=== PATIENT | female | born 2000 | race Caucasian/White ===

== ENCOUNTER 2022-05-13 18:32 | Emergency (ER) | payer BC, MEDICAID, SELFPAY ==
[2022-05-13 18:39] VITALS: BP 107/69; PULSE 97; RESP 24; TEMP 36.8; O2SAT 100; BMI 23.2
[2022-05-13 19:08] VITALS: BP 97/66; PULSE 88; RESP 14; TEMP 36.6; O2SAT 100
[2022-05-13 19:11] LABS: Lactate* 0.9 mmol/L (0.5-1.9)
[2022-05-13 19:13] LABS: Basophils Percent Auto 0.1 % (0.0-3.0); Eosinophils Percent Auto 0.3 % (0.0-7.0); Hematocrit 41.5 % (33.0-51.0); Hemoglobin* 13.9 gm/dL (12.0-16.0); Immature Granulocytes Pct Auto 0.1 %; Lymphocytes Percent Auto 1.8 % (20-44); Mean Corpuscular HGB Conc 34 gm/dL (32-36); Mean Corpuscular Hemoglobin 30 pg (26-34); Mean Corpuscular Volume 88 fL (80-100); Monocytes Percent Auto 4.5 % (0.0-11.0); Neutrophils Percent Auto 93.2 % (42.0-72.0); Platelet Count* 288 K/uL (140-440); White Blood Count* 17.39 K/uL (4.50-11.00)
[2022-05-13 19:15] LABS: Appearance Urine Cloudy (Clear); Bilirubin Urine 1+ (Negative); Blood Urine Negative (Negative); Color Urine Yellow (Yellow); Glucose Urine Negative (Negative); Ketones Urine 4+ (Negative); Leukocyte Esterase Urine Negative (Negative); Nitrite Urine Negative (Negative); Protein Urine Negative (Negative); Specific Gravity Urine 1.025 (1.000-1.030); Urobilinogen Urine 0.2 (0.2-1.0); pH Urine 5.5 (5.0-8.5)
[2022-05-13 19:16] LABS: HCG Qualitative* Negative (Negative)
--- NOTE | 2022-05-13 19:20 | ED.GENADULT ---
HPI - General Adult General Chief complaint: Abdominal Pain Stated complaint: Abdominal Pain Time Seen by Provider: 05/13/22 18:48 Source: patient Mode of arrival: ambulatory Limitations: no limitations History of Present Illness HPI narrative: 22-year-old female coming in today complaining of pelvic pain. She states bilaterally but the right is worse than left. She states that she started having diarrhea last night and has continued into today. She describes it as watery bright yellow diarrhea. She denies any nausea but states that she vomited twice earlier today. She has been able to eat since without difficulty. She denies any fevers. She denies any recent traveling or sick contacts that she is aware of. She does have a copper IUD in. Her last menses was this last week and ended 2 days ago. She states that she is having some dysuria but no increased frequency or urgency. Related Data Home Medications Medication Instructions Recorded Confirmed adapalene 0.3 % topical gel with 1 applic topical .hs 10/28/21 03/28/22 pump clindamycin phosphate 1 % lotion 1 applic topical DAILY PRN 10/28/21 03/28/22 paraguard miscellaneous 10/28/21 escitalopram oxalate 5 mg tablet 5 mg PO QDAY 03/28/22 05/13/22 spironolactone 50 mg tablet 50 mg PO QDAY 03/28/22 05/13/22 Previous Rx's Medication Instructions Recorded dextroamphetamine-amphetamine ER 20 mg PO QAM #30 caps 03/28/22 20 mg 24hr capsule,extend release (Adderall XR) dextroamphetamine-amphetamine ER 20 mg PO QAM #30 caps 03/28/22 20 mg 24hr capsule,extend release (Adderall XR) dextroamphetamine-amphetamine ER 20 mg PO QAM #30 caps 03/28/22 20 mg 24hr capsule,extend release (Adderall XR) escitalopram oxalate 10 mg tablet 15 mg PO DAILY #135 tabs 03/28/22 lisdexamfetamine 40 mg capsule 40 mg PO QAM #30 caps 05/03/22 (Vyvanse) Allergies Allergy/AdvReac Type Severity Reaction Status Date / Time No Known Drug Allergies Allergy Verified 03/28/22 14:44 Review of Systems Status of ROS: Reports: 10 or more systems reviewed and unremarkable except as noted in History and below [facility] Medical History Acne Attention deficit hyperactivity disorder (ADHD), predominantly inattentive type Generalized anxiety disorder Recurrent major depressive disorder Surgical History History of hernia repair (05/2015) History of tonsillectomy and adenoidectomy (05/2001) Spontaneous vaginal delivery Social History Narrative: single, 1 son, [employer] student, works at [employer] non-smoker Smoking Status: Never smoker How often do you have a drink containing alcohol: 2-4 times a month AUDIT-C Alcohol total score: 2 Non-prescribed substance use: denies use Little interest or pleasure in doing things: not at all Feeling down, depressed, or hopeless: not at all Exam Narrative: Exam Narrative: Well-nourished well-developed patient, quite anxious. Alert and oriented x3. Answers questions appropriately. Patient speaks in full sentences without needing to catch her breath. HEENT: Normocephalic atraumatic. Pupils are equally round reactive to light. Extraocular muscles are intact. Conjunctivae are moist without any icterus noted. Moist mucous membranes. Cardiovascular: Heart is regular rate and rhythm S1 and S2 are present without any murmurs. Lungs: Clear to auscultation bilaterally no wheezes rhonchi or rales are appreciated. Patient takes deep breaths without any discomfort. Abdomen: Soft and nondistended normal with normal bowel sounds. She has no tenderness in the epigastric area, right or left upper quadrants. She has no periumbilical pain. No pain in McBurney's point. She has suprapubic discomfort with mild discomfort in the left and right pelvic regions. No masses are appreciated. Extremities: Bilateral lower extremities are without edema. Skin: Well perfused without any obvious rashes. Const: Vital Signs, click to edit/add: Vital Signs - 24 hr 05/13/22 18:39 05/13/22 19:08 05/13/22 19:49 Temperature 98.2 F 98 F Pulse Rate [Pulse Oximeter] 97 88 Respiratory Rate 24 14 Blood Pressure [Ri ght Upper Arm] 107/69 97/66 108/59 L Pulse Oximetry 100 100 Oxygen Delivery Me thod Room Air Room Air Course Course Hospital Course: Who proceeded with blood work. White blood cell count is elevated, remainder of lab work is unremarkable including a normal CRP and lactate. At this time we discussed options which would include further imaging will given her discomfort and elevated white count or watchful waiting for the next 1-2 days given that we can see an elevated white count with gastroenteritis and GI distress. Urine culture also pending at this time and that can certainly change our treatment also 1 results arrive. At this time patient she uses watchful waiting which I am in agreement with. We discussed returning to the ER if she develops worsening pain, fevers, intractable vomiting. Patient was agreeable and had no other questions. Vital Signs Vital signs: Initial Vital Signs Temperature 98.2 F 05/13/22 18:39 Temperature Source Temporal Artery Scan 05/13/22 18:39 Pulse Rate 97 05/13/22 18:39 Respiratory Rate 24 05/13/22 18:39 Blood Pressure 107/69 05/13/22 18:39 Blood Pressure Mean 81 05/13/22 18:39 Blood Pressure Position Supine 05/13/22 18:39 Pulse Oximetry 100 05/13/22 18:39 Oxygen Delivery Method 05/13/22 18:39 Vital Signs Temperature 98.2 F 05/13/22 18:39 Pulse Rate 97 05/13/22 18:39 Respiratory Rate 24 05/13/22 18:39 Blood Pressure 107/69 05/13/22 18:39 Pulse Oximetry 100 05/13/22 18:39 Oxygen Delivery Method 05/13/22 18:39 Temperature 98 F 05/13/22 19:08 Pulse Rate 88 05/13/22 19:08 Respiratory Rate 14 05/13/22 19:08 Blood Pressure 108/59 L 05/13/22 19:49 Pulse Oximetry 100 05/13/22 19:08 Oxygen Delivery Method 05/13/22 19:08 Medical Decision Making MDM Narrative Medical decision making narrative: Diarrhea and abdominal pain. Differential diagnosis includes gastroenteritis, UTI, ovarian cysts, colitis. At this time we will manage conservatively with [id number] pain management and oral hydration. Return to the ER for worsening symptoms. Medical Records Medical records reviewed: Yes I reviewed the patient's medical records Lab Data Lab results reviewed: Yes I reviewed the patient's lab results Labs: Lab Results 05/13/22 05/13/22 05/13/22 Range/Units 19:05 19:05 19:07 WBC 17.39 H (4.50-11.00) K/uL RBC 4.70 (4.00-5.20) m/uL Hgb 13.9 (12.0-16.0) gm/dL Hct 41.5 (33.0-51.0) % MCV 88 (80-100) fL MCH 30 (26-34) pg MCHC 34 (32-36) gm/dL RDW Coeff of Jovany 13.0 (11.5-15.5) % Plt Count 288 (140-440) K/uL Neut % (Auto) 93.2 H (42.0-72.0) % Lymph % (Auto) 1.8 L (20-44) % [place] % (Auto) 4.5 (0.0-11.0) % Eos % (Auto) 0.3 (0.0-7.0) % Baso % (Auto) 0.1 (0.0-3.0) % Neut # (Auto) 16.20 H (1.7-7.0) K/uL Lymph # (Auto) 0.30 L (0.90-2.90) K/uL [place]undy # (Auto) 0.80 (0.00-0.90) K/UL Eos # (Auto) 0.10 (0.00-0.50) K/uL Baso # (Auto) 0.00 (0.00-0.30) K/uL Sodium (135-149) mmol/L Potassium (3.6-5.1) mmol/L Chloride (96-114) mmol/L Carbon Dioxide (20-32) mmol/L BUN (5-24) mg/dL Creatinine (0.5-1.5) mg/dL Estimated Creat Clear Estimated GFR ml/min Glucose (60-115) mg/dL Lactate (0.5-1.9) mmol/L Calcium (8.4-10.6) mg/dL C-Reactive Protein (0.5-1.0) mg/dL HCG, Qual Negative (Negative) Urine Color Yellow (Yellow) Urine Appearance Cloudy A (Clear) Urine pH 5.5 (5.0-8.5) Ur Specific [place] 1.025 (1.000-1.030) Urine Protein Negative (Negative) Urine Glucose (UA) Negative (Negative) Urine Ketones 4+ A (Negative) Urine Blood Negative (Negative) Urine Nitrite Negative (Negative) Urine Bilirubin 1+ A (Negative) Urine Urobilinogen 0.2 (0.2-1.0) Ur Leukocyte Esterase Negative (Negative) Urine RBC 0-2 (0-2) Urine WBC 0-2 (0-5) Ur Squamous Epith Cells Moderate A (None-Few) Urine Bacteria Few A (None) 05/13/22 05/13/22 Range/Units 19:07 19:07 WBC (4.50-11.00) K/uL RBC (4.00-5.20) m/uL Hgb (12.0-16.0) gm/dL Hct (33.0-51.0) % MCV (80-100) fL MCH (26-34) pg MCHC (32-36) gm/dL RDW Coeff of Jovany (11.5-15.5) % Plt Count (140-440) K/uL Neut % (Auto) (42.0-72.0) % Lymph % (Auto) (20-44) % [place] % (Auto) (0.0-11.0) % Eos % (Auto) (0.0-7.0) % Baso % (Auto) (0.0-3.0) % Neut # (Auto) (1.7-7.0) K/uL Lymph # (Auto) (0.90-2.90) K/uL [place] # (Auto) (0.00-0.90) K/UL Eos # (Auto) (0.00-0.50) K/uL Baso # (Auto) (0.00-0.30) K/uL Sodium 134 L (135-149) mmol/L Potassium 3.7 (3.6-5.1) mmol/L Chloride 102 (96-114) mmol/L Carbon Dioxide 20 (20-32) mmol/L BUN 9 (5-24) mg/dL Creatinine 0.6 (0.5-1.5) mg/dL Estimated Creat Clear 135.35 Estimated GFR 128 ml/min Glucose 108 (60-115) mg/dL Lactate 0.9 (0.5-1.9) mmol/L Calcium 9.7 (8.4-10.6) mg/dL C-Reactive Protein 0.6 (0.5-1.0) mg/dL HCG, Qual (Negative) Urine Color (Yellow) Urine Appearance (Clear) Urine pH (5.0-8.5) Ur Specific [place] (1.000-1.030) Urine Protein (Negative) Urine Glucose (UA) (Negative) Urine Ketones (Negative) Urine Blood (Negative) Urine Nitrite (Negative) Urine Bilirubin (Negative) Urine Urobilinogen (0.2-1.0) Ur Leukocyte Esterase (Negative) Urine RBC (0-2) Urine WBC (0-5) Ur Squamous Epith Cells (None-Few) Urine Bacteria (None) Discharge Plan Discharge Clinical Impression: Diarrhea, Abdominal pain Patient Disposition: Home, Self-Care Condition: Stable Additional Instructions: Make sure to stay well hydrated by increasing your daily intake of water until diarrhea resolves. Okay to use ibuprofen or Tylenol as needed/as directed for discomfort. Okay to use a heating pad to the abdomen-do not apply heat directly to skin. Return to the ER if you develop fever, inability to eat because of recurrent vomiting or worsening pain. Prescriptions: No Action adapalene 0.3 % gel with pump 1 applic topical .hs clindamycin phosphate 1 % lotion 1 applic topical DAILY PRN paraguard miscellaneous escitalopram oxalate 5 mg tablet 5 mg PO QDAY Label Comments: takes total of 15mg daily spironolactone 50 mg tablet 50 mg PO QDAY escitalopram oxalate 10 mg tablet 15 mg PO DAILY Qty: 135 3RF dextroamphetamine-amphetamine [Adderall XR] 20 mg capsule,extended release 24hr 20 mg PO QAM Qty: 30 0RF dextroamphetamine-amphetamine [Adderall XR] 20 mg capsule,extended release 24hr 20 mg PO QAM Qty: 30 0RF dextroamphetamine-amphetamine [Adderall XR] 20 mg capsule,extended release 24hr 20 mg PO QAM Qty: 30 0RF Vyvanse 40 mg capsule 40 mg PO QAM Qty: 30 0RF Follow Up/Referrals: Luis E Harmon MD [Primary Care Provider] - Stand Alone Forms: [facility] Info Instructions
[2022-05-13 19:23] LABS: Slide Review Reflex No
[2022-05-13 19:30] LABS: Chloride* 102 mmol/L (96-114); Potassium* 3.7 mmol/L (3.6-5.1); Sodium* 134 mmol/L (135-149)
[2022-05-13 19:33] LABS: Carbon Dioxide* 20 mmol/L (20-32); Creatinine* 0.6 mg/dL (0.5-1.5); Est. Creatinine Clearance* 135.35; Estimated Glomerular Filt Rate 128 ml/min
[2022-05-13 19:34] LABS: Blood Urea Nitrogen* 9 mg/dL (5-24); Calcium* 9.7 mg/dL (8.4-10.6); Glucose* 108 mg/dL (60-115)
[2022-05-13 19:37] LABS: C Reactive Protein* 0.6 mg/dL (0.5-1.0)
[2022-05-13 19:41] LABS: Bacteria Urine Few; RBC Urine 0-2 (0-2); Squamous Epithelial Cell Urine Moderate (None-Few); WBC Urine 0-2 (0-5)
[2022-05-13 19:49] VITALS: BP 108/59
--- NOTE | 2022-05-13 19:49 | PC.NURSE ---
pain 5/10 warm pack applied to belly, patint stated it helped a little for pain
[2022-05-13] MEDS: KETOROLAC 30 MG/ML inj 60 MG IM (20:02)
[2022-05-13 20:11] VITALS: BP 111/63; PULSE 80; RESP 18; TEMP 36.6
== END 2022-05-13 20:13 | disposition home or self-care (01) ==
PROVIDERS: Emergency Provider Family Medicine; PCP Family Medicine
DX: R19.7 Diarrhea, unspecified (principal); R10.9 Unspecified abdominal pain
CPT/HCPCS: 36415; 80048; 81001; 83605; 84703; 85025; 86140; 87086; 96372; 99283; 99284; J1885

== ENCOUNTER 2022-12-28 16:08 | Outpatient (CLI) | payer BC, MEDICAID, SELFPAY ==
[2022-12-28 19:17] LABS: Chlamydia DNA Amplified* NOT DETECTED (No Detected); GC DNA Amplified* NOT DETECTED (No Detected)
== END 2022-12-28 16:09 | disposition home or self-care (01) ==
PROVIDERS: PCP Family Medicine; Visit Provider Registered Nurse
DX: R10.2 Pelvic and perineal pain (principal)
CPT/HCPCS: 87086; 87491; 87591

== ENCOUNTER 2023-01-02 16:44 | Outpatient (CLI) | payer BC, MEDICAID, SELFPAY ==
--- NOTE | 2023-01-02 17:00 | CRLHL7_ITS ---
For Patients: As a result of the Century Cures Act, medical imaging exams and procedure reports are released immediately into your electronic medical record. You may view this report before your referring provider. If you have questions, please contact your health care provider. INDICATION: PELVIC AND PERINEAL PAIN COMPARISON: none TECHNIQUE: 2D russo scale and color Doppler images were acquired of the pelvis using a transabdominal and transvaginal approach. FINDINGS: Sonographic images demonstrate a normal size and smooth outer contour of the uterus. Uterus measures 7.8 cm in length by 4.2 cm in AP diameter by 5.5 cm in transverse dimension. The myometrium has a normal uniform echotexture. The endometrial lining appears normal and measures 11 mm in composite thickness. The right ovary measures 5.5 x 2.5 x 2.3 cm in size and the left ovary measures 4.6 x 1.7 x 2.2 cm. Hypoechoic right ovarian cyst measuring 2.2 x 2.0 x 1.4 cm. The ovaries demonstrate normal arterial and venous blood flow on color Doppler analysis. There are no suspicious fluid collections within the cul-de-sac. IMPRESSION: 2.2 cm hemorrhagic right ovarian cyst. No excess pelvic free fluid. No uterine fibroid. Dictated by Luis E Vargas MD @ 01/03/2023 9:39:52 AM (Electronically Signed)
== END 2023-01-02 16:45 | disposition home or self-care (01) ==
LOC: US 16:45
PROVIDERS: PCP Family Medicine; Visit Provider Registered Nurse
DX: R10.2 Pelvic and perineal pain (principal); N83.201 Unspecified ovarian cyst, right side
CPT/HCPCS: 76830; 76856

== ENCOUNTER 2023-01-31 14:41 | Outpatient (CLI) | payer BC, MEDICAID, SELFPAY ==
--- NOTE | 2023-01-31 15:00 | CRLHL7_ITS ---
For Patients: As a result of the Century Cures Act, medical imaging exams and procedure reports are released immediately into your electronic medical record. You may view this report before your referring provider. If you have questions, please contact your health care provider. Indication: Pelvic pain Technique: CT Abdomen/Pelvis W ISOVUE 370 Please note that all CT scans at this facility use dose modulation, iterative reconstruction, and/or weight-based dosing when appropriate to reduce radiation dose to as low as reasonably achievable. Comparison: 01/10/2021 CT, 01/02/2023 ultrasound Findings: Lung bases are clear. No free air. Diffuse hepatic steatosis is noted including focal fat deposition adjacent to the falciform ligament. Spleen is normal. Normal adrenal glands. Kidneys are unremarkable. Gallbladder distended. No biliary obstruction. Normal pancreas. No hiatal hernia. Bladder normal. Postoperative changes of bilateral lower abdominal hernia repair. Moderate fluid is present in the cul-de-sac. Normal right ovary and uterus. Collapsing left ovarian cyst measuring 1.9 cm. Normal appendix. No bowel obstruction. No adenopathy. No abscess. Impression: 1.9 cm collapsing left ovarian cyst. Moderate pelvic free fluid has developed since the prior ultrasound. Normal appendix. No bowel obstruction or diverticulitis. No evidence of recurrent abdominal wall hernia. Hepatic steatosis. Please note that all CT scans at this facility use dose modulation, iterative reconstruction, and/or weight-based dosing when appropriate to reduce radiation dose to as low as reasonably achievable. Dictated by Luis E Vargas MD @ 02/03/2023 1:41:39 PM (Electronically Signed)
== END 2023-01-31 14:42 | disposition home or self-care (01) ==
PROVIDERS: PCP Family Medicine; Visit Provider Registered Nurse
DX: R10.2 Pelvic and perineal pain (principal); N83.202 Unspecified ovarian cyst, left side; K76.0 Fatty (change of) liver, not elsewhere classified; Z98.890 Other specified postprocedural states; Z87.19 Personal history of other diseases of the digestive system
CPT/HCPCS: 74177; Q9967

== ENCOUNTER 2023-06-30 09:48 | Outpatient (CLI) | payer BC, SELFPAY ==
[2023-06-30 12:06] LABS: Chlamydia DNA Amplified* NOT DETECTED (No Detected); GC DNA Amplified* NOT DETECTED (No Detected)
== END 2023-06-30 09:49 | disposition home or self-care (01) ==
LOC: NFLDREF 09:48
PROVIDERS: PCP Family Medicine; Visit Provider Registered Nurse
DX: Z11.3 Encounter for screening for infections with a predominantly sexual mode of transmission (principal)
CPT/HCPCS: 87491; 87591

== ENCOUNTER 2023-08-02 11:55 | Outpatient (CLI) | payer BC, SELFPAY ==
[2023-08-02 16:46] LABS: Chlamydia DNA Amplified* NOT DETECTED (No Detected); GC DNA Amplified* NOT DETECTED (No Detected)
== END 2023-08-02 11:56 | disposition home or self-care (01) ==
LOC: NFLDREF 11:56
PROVIDERS: PCP Family Medicine; Visit Provider Registered Nurse
DX: N89.8 Other specified noninflammatory disorders of vagina (principal); Z11.3 Encounter for screening for infections with a predominantly sexual mode of transmission
CPT/HCPCS: 87491; 87591

== ENCOUNTER 2023-08-12 22:31 | Emergency (ER) | payer BC, SELFPAY ==
[2023-08-12 22:58] VITALS: BP 124/77; PULSE 89; RESP 16; TEMP 36.8; O2SAT 98; BMI 21.8
--- NOTE | 2023-08-12 23:40 | ED.GENADULT ---
HPI - General Adult General Chief complaint: Dental/Oral/Mouth Injury/Pain Stated complaint: throat tight, left ear pain Time Seen by Provider: 08/12/23 23:32 History of Present Illness HPI narrative: Patient is a 23-year-old woman who comes in today with a severe left-sided ear pain. She has had symptoms for last 24 hours. She has had no fevers no chills no night sweats. She has had no change in her breathing and no wheezing. She does have a crusty dermatitis around her nose which has been present for quite some time. No other significant symptoms. Related Data Previous Rx's ?Medication ?Instructions ?Recorded escitalopram oxalate 10 mg tablet 10 mg PO DAILY #90 tabs 07/19/23 lisdexamfetamine 60 mg capsule 60 mg PO QAM #30 caps 07/19/23 lurasidone 20 mg tablet (Latuda) 20 mg PO QDAY #30 tabs 07/19/23 fluconazole 150 mg tablet 150 mg PO Q3D 2 doses #2 tabs 08/02/23 mupirocin 2 % topical ointment 1 applic topical DAILY #15 grams 08/12/23 Allergies Allergy/AdvReac Type Severity Reaction Status Date / Time No Known Drug Allergies Allergy Verified 08/03/23 13:48 Review of Systems Status of ROS: Reports: 10 or more systems reviewed and unremarkable except as noted in History and below [facility] Medical History Recurrent major depressive disorder ?F33.9 - Major depressive disorder, recurrent, unspecified (ICD-10) Generalized anxiety disorder ?F41.1 - Generalized anxiety disorder (ICD-10) Attention deficit hyperactivity disorder (ADHD), predominantly inattentive type ?F90.0 - Attention-deficit hyperactivity disorder, predominantly inattentive type (ICD-10) Acne ?L70.9 - Acne, unspecified (ICD-10) Surgical History History of hernia repair (05/2015) ?Z98.890 - Other specified postprocedural states (ICD-10) ?Z87.19 - Personal history of other diseases of the digestive system (ICD-10) Spontaneous vaginal delivery ?O80 - Encounter for full-term uncomplicated delivery (ICD-10) History of tonsillectomy and adenoidectomy (05/2001) ?Z90.89 - Acquired absence of other organs (ICD-10) Social History Narrative: single, 1 son, [employer] student, works at 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 What is your current living situation?: I presently have a place to live Problems where you live: no known problems In the past 12 months, utilities in danger of being shut off: no In past 12 months, lack of transportation kept you from medical appts, meetings, work, or getting things needed for daily living: no Smoking Status: Never smoker How often do you have a drink containing alcohol: 2-4 times a month AUDIT-C Alcohol total score: 2 Non-prescribed substance use: denies use How often does anyone, including family, friends and others, physically hurt you: never How often does anyone, including family, friends and others, insult or talk down to you: rarely How often does anyone, including family, friends and others, threaten you with harm: never How often does anyone, including family, friends and others, scream or curse at you: rarely Little interest or pleasure in doing things: more than half the days Feeling down, depressed, or hopeless: several days Exam Narrative: Exam Narrative: EXAM GENERAL: Patient appears comfortable and well. EYES: No scleral icterus. ENT: Right tympanic membrane shows dullness and erythema. THYROID: no thyroid nodules or thyromegaly. LYMPH: No supraclavicular or cervical lymphadenopathy. SKIN: Visible skin seen during exam normal or with benign process only. EXT: No dependent lower extremity pedal edema. HEART: Regular rate and rhythm with no murmurs, rubs, or gallops. LUNGS: Clear to auscultation bilaterally with no crackles or wheezes. ABD: Soft, non tender, non distended. PSYCH: Good eye contact, speech is not pressured. Const: Vital Signs, click to edit/add: Vital Signs - 24 hr 08/12/23 22:58 Temperature 98.2 F Pulse Rate [Left P ulse Oximeter] 89 Respiratory Rate 16 Blood Pressure [Ri ght Upper Arm] 124/77 Pulse Oximetry 98 Oxygen Delivery Me thod Room Air Course Course ED Course: Patient seen and examined. Vital Signs Vital signs: Initial Vital Signs Temperature 98.2 F 08/12/23 22:58 Temperature Source Oral 08/12/23 22:58 Pulse Rate 89 08/12/23 22:58 Pulse Rhythm Regular 08/12/23 22:58 Respiratory Rate 16 08/12/23 22:58 Blood Pressure 124/77 08/12/23 22:58 Blood Pressure Mean 92 08/12/23 22:58 Blood Pressure Position Sitting 08/12/23 22:58 Pulse Oximetry 98 08/12/23 22:58 Oxygen Delivery Method Room Air 08/12/23 22:58 Vital Signs Temperature 98.2 F 08/12/23 22:58 Pulse Rate 89 08/12/23 22:58 Respiratory Rate 16 08/12/23 22:58 Blood Pressure 124/77 08/12/23 22:58 Pulse Oximetry 98 08/12/23 22:58 Oxygen Delivery Method Room Air 08/12/23 22:58 Temperature 98.2 F 08/12/23 22:58 Pulse Rate 89 08/12/23 22:58 Respiratory Rate 16 08/12/23 22:58 Blood Pressure 124/77 08/12/23 22:58 Pulse Oximetry 98 08/12/23 22:58 Oxygen Delivery Method Room Air 08/12/23 22:58 Medical Decision Making MDM Narrative Medical decision making narrative: Patient presents with symptoms consistent with both left-sided otitis media as well as impetigo of her nose. Will treat with Z-Teodoro plus Bactroban topical. She will continue her current management will follow-up with her primary physician as needed. Differential diagnosis includes but not limited to sinusitis otitis media otitis externa strep throat viral syndrome. Lab Data Labs: Lab Results 08/12/23 Range/Units 23:10 Group A Strep DNA NOT DETECTED (Not Detectd) Discharge Plan Discharge Clinical Impression: Otitis media, Impetigo Patient Disposition: Home, Self-Care Condition: Stable Instructions: Impetigo (ED), Ear Infection (ED) Additional Instructions: Z-Teodoro via Mobile Authentication Bactroban at pharmacy Follow-up with your doctor as needed. Activity Level: No Restrictions Discharge Diet: Regular Prescriptions: New mupirocin 2 % ointment 1 applic topical DAILY Qty: 15 0RF No Action lisdexamfetamine 60 mg capsule 60 mg PO QAM Qty: 30 0RF escitalopram oxalate 10 mg tablet 10 mg PO DAILY Qty: 90 1RF lurasidone [Latuda] 20 mg tablet 20 mg PO QDAY Qty: 30 1RF Rx Instructions: must administer with food (at least 350 calories), 1/2 QD x 8 days then 1 QD fluconazole 150 mg tablet 150 mg PO Q3D Qty: 2 0RF Follow Up/Referrals: Luis E Harmon MD [Primary Care Provider] - Stand Alone Forms: [facility] Info Instructions
[2023-08-12 23:44] LABS: Strep A DNA Probe* NOT DETECTED (Not Detectd)
--- OUTSIDE RECORDS SUMMARY | 2023-08-12 23:48 | XMS_ITS | Encounter Summary ---
Author Organization [place] Address [address] [place] [id number] Care Team Providers Care [employer] Name Role Phone [facility]- Primary Care Provider Encounter Details Date Type Department Care Team (Latest Contact Info) Description 06/25/2023 Travel Social History Tobacco Use Types Packs/Day Years Used Date Smoking Tobacco: Never Assessed Adolescent Education Answer Date Record ed Getting School Help Needed Not on file 06/24 Sex and Gender Information Value Date Recorded Sex Assigned at Not on file Gender Identity Not on file Sexual Orientation Not on file documented as of this encounter Plan of Treatment Not on file documented as of this encounter Visit Diagnoses Not on filedocumented in this encounter Care Teams [employer] Relationship Specialty Start Date End Date [facility]- [address] [place] [address] PCP - General 06/25/23 documented as of this encounter
--- OUTSIDE RECORDS SUMMARY | 2023-08-12 23:48 | XMS_ITS | Clinical Summary ---
Author Organization [facility] Address [place], [place] [address] Care Team Providers Care Gum Rolling Machine Tender Name Role Phone Alysha Rogers Unavailable Unavailable Luis E Harmon MD Primary Care Provider + Allergies No known active allergies Medications Medication Sig Dispensed Refills Start Date End Date Status escitalopram oxalate (LEXAPRO) 10 mg tablet Take 10 mg by mouth once daily. 08/22/2021 Active Adapalene 0.3 % topical gel APPLY A THIN LAYER TO FACE VERY OTHER NIGHT INCREASING TO NIGHTLY TOLERATED.FOLLOW WITH MOISTURIZER. 10/28/2021 Active fluconazole (Diflucan) 150 mg tabletIndication s:Yeast vaginitis ONE BY MOUTH THIS EVENING AND MAY REPEAT IN 3-5 DAYS IF NEEDED 2 Tablet 12/08/2021 Active amoxicillin (AMOXIL) 875 mg tablet Take 1 Tablet (875 mg) by mouth two times daily. 14 Tablet 04/10/2023 Active gentamicin (GENOPTIC) 0.3 % ophthalmic solution Place 2 Drops into both eyes four times daily until clear x 48 hours 5 mL 04/10/2023 Active escitalopram oxalate (LEXAPRO) 10 mg tablet Take 1 Tablet (10 mg) by mouth once daily. 90 Tablet 1 07/19/2023 Active lisdexamfetamine (VYVANSE) 60 mg capsule Take 1 Capsule (60 mg) by mouth once daily in the morning. 30 Capsule 07/19/2023 Active lurasidone (LATUDA) 20 mg tablet Take 0.5 Tablets (10 mg) by mouth once daily with a meal for 8 days, THEN 1 Tablet (20 mg) once daily with a meal. Must administer with food (at least 350 calories) 30 Tablet 1 07/19/2023 08/22/2023 Active fluconazole (DIFLUCAN) 150 mg tablet Take 1 Tablet (150 mg) by mouth every 3 days 2 Tablet 08/02/2023 Active lisdexamfetamine (VYVANSE) 60 mg capsule Take 1 Capsule (60 mg) by mouth every morning. 30 Capsule 05/31/2023 07/19/2023 Discontinue d(Reorder (E-cancel not sent)) lisdexamfetamine (VYVANSE) 70 mg capsule Take 1 Capsule (70 mg) by mouth every morning. 30 Capsule 06/23/2023 07/19/2023 Discontinue d(*Medicati on adjustment) Active Problems Problem Noted Date Diagnosed Date Cervical high risk HPV (human papillomavirus) te st positive 12/27/2021 Overview: 11/01/2019: NIL 12/06/2021: NIL/HPV+ (16/18 neg) Plan: Pap and HPV in 1 year. IUD (intrauterine device) in place 12/06/2021 Overview: copper 08/2021 Acne vulgaris 12/25/2014 Resolved Problems Problem Noted Date Diagnosed Date Resolved Date No active medical problems 11/29/2010 1 Encounters Date Type Department Care Team Description 06/30/2023 Lab Requisition [facility] [phone] Shanon Gan, OFFICE MACHINES TEACHER from Last 3 Months Immunizations Name Administration Dates Next Due DTaP 10/22/2003, 3,1998,06/19,1998 DTaP-HIB (TriHIBIT) 09/20/2002 HPV 9 (Gardasil 9) 06/22/2015,09/25/2014 Hepatitis A (Peds) 09/25/2014,10/01/2012 Hepatitis B (Adult) 04/07/2021 Hepatitis B (Peds) 02/16/1999,1998, 999 Hepatitis B, Unspecified 02/16/1999,1998,0 1998 Hib Conjugate, Unspecified 09/18/2002,,1998,04/06 Human Papilloma Virus Vaccine 10/01/2012 Inactivated Polio Vaccine 10/22/2003,09/20/2002 Influenza A (H1N1), Inactivated 01/28/2009 Influenza A (H1N1), Inactiva rika (Age >=3 Years) 01/28/2009 Influenza, IIV4 04/07/2021, 8,12/24/2014,01/28 MMR 10/22/2003,09/20/2002 Meningococcal Vaccine (Menveo) 09/25/2014 Oral Polio Vaccine 1998,1998 Polio Virus, Unspecified 1998,1998 Tdap 11/17/2017,11/06/2009 Varicella Vaccine 11/06/2009,02/16/1999 Family History Medical History Relation Name Comments Hyperlipidemia Father Other Mother groin hernia re pair age 9 Relation Name Status Comments Father Alive Mother Alive Social History Tobacco Use Types Packs/Day Years Used Date Smoking Tobacco: Never Smokeless Tobacco: Never Tobacco Cessation:Counseling Given: Yes Alcohol Use Standard Drinks/Week Comments No 0 (1 standard drink = 0.6 oz pur e alcohol) PHQ-2 Answer Date Recorded PHQ-2 TOTAL SCORE 0 12/06/2021 Social Connections Answer Date Recorded Frequency of Communication with Friends and Fami ly Not on file 09/06/2021 Sex and Gender Information Value Date Recorded Sex Assigned at Not on file Gender Identity Not on file Sexual Orientation Not on file Obstetrics History Para Term AB IAB SAB Ectopic Multiple Livin g Live Births 1 0 0 0 0 0 0 0 0 0 Date Outcome GA Total Labor Labor/2nd/3rd Weight Sex Type Anes PTL Kyara A1 A5 Name Clin Last Filed Vital Signs Vital Sign Reading Time Taken Comments Blood Pressure 94/72 05/13/2022 5:03 PM CDT Pulse 90 05/13/2022 5:03 PM CDT Temperature 36.6 ??C (97.9 ??F) 05/13/2022 5:01 PM CD T Respiratory Rate 20 05/13/2022 5:03 PM CDT Oxygen Saturation 100% 05/13/2022 5:03 PM CDT Inhaled Oxygen Concentration - - Weight 65.3 kg (144 lb) 05/13/2022 5:03 PM CDT Height 167.6 cm (5' 6) 05/13/2022 5:03 PM CDT Body Mass Index 23.24 05/13/2022 5:03 PM CDT Plan of Treatment Health Maintenance Due Date Last Done Comments COVID-19 vaccine series ( season) 2022 04/27/2021, 04/06/2021 BMI (ht and wt on same day) for age 18+ 12/06/2022 12/06/2021, 06/07/2017, 05/23/2017, Additional history exists Depression screening for age 12+ 12/06/2022 12/06/2021, 05/23/2017, 12/29/2016, Additional history exists Influenza for age 9-49 10/29/2023 2, 12/01/2017, 12/24/2014, Additional history exists Pap test for age 21-65 06/29/2024 4, 06/30/2023, 07/26/2022, Additional history exists Tetanus booster 11/18/2027 11/17/2017, 11/06/2009 HPV series for age 9-26 Completed 06/22/19 16, 09/25/2014, 10/01/2012 HIV for age 15-65 Completed 06/07/2017 Hepatitis C screening for age 18-79 Completed 06/07/2017 Tdap Completed 11/17/2017, 11/06/2009 Pneumococcal series for age 6-64 Aged Out No longer eligible based on patient's age to complete this topic Procedures Procedure Name Priority Date/Time Associated Diagnosis Comments LAB TRACKING EVENT Routine 06/30/2023 9: 24 AM CDT MAINTENANCE MECHANIC THIN PREP PAP SCREEN IMAGED Routine 06/30/2023 9:24 AM CDT HPV THIN PREP Routine 06/30/2023 9:24 AM CDT ANTI HIV 1/2 Routine 06/07/2017 8:44 AM CDT Encounter for supervision of normal first in first trimester ANTI HCV Routine 06/07/2017 8:44 AM CDT Encounter for supervision of normal first in first trimester from Last 3 Months or Most Recently Relevant to Health Maintenance Results * LAB TRACKING EVENT (06/30/2023 9:24 AM CDT) Other (Other) Client Collect / Unknown 06/30/2023 9:24 AM CDT 06/30/2023 3:36 PM CDT Shanon Gan NP LAB BILL ONLY [facility] [address] [place] [address], * MAINTENANCE MECHANIC THIN PREP PAP SCREEN IMAGED (06/30/2023 9:24 AM CDT) Case Report Gynecologic Cytology Report ? Case: [id number] ? Authorizing Provider: ??Shanon Gan, KATERINA ?? Collected: ? 06/30/2023 0924 ? Ordering Location: ? [facility] ?Received: ?07/03/2023 1017 ? First Screen: ?Patrice Hoang ? Rescreen: ?Danni Thakur ? Specimen: ?MAINTENANCE MECHANIC ThinPrep Vial Screening, Cervical ? 07/14/2023 10:08 AM CDT [facility] INTERPRETATION/ RESULT NEGATIVE FOR INTRAEPITHELIAL LESION OR MALIGNANCY (NIL) (none) 07/14/2023 10:08 AM T [facility] IMEN ADEQUACY Satisfactory for evaluation Endocervical component present 07/14/2023 10:08 AM CDT [facility] HPV REQUEST HPV and PAP 07/14/2023 10:08 AM [facility] Date of LMP 06/25/2023 07/14/2023 10:08 AM [facility] Last Pap Date 07/26/2022 07/14/2023 10:08 AM T [facility] Last Pap Result LSIL 10:08 AM T [facility] Abnormal Pap or [place] Bx in last 5 years Yes 07/14/2023 10:08 AM T [facility] [place] Bx Done Today No 07/14/2023 10:08 AM [facility] Additional Information 07/14/2023 10:08 AM [facility] Comment: Interpreted at [facility] Laboratory - [address] [address] Automated Review Successful 07/14/2023 10:08 AM T [facility] Comment:Specimen processed s uccessfully by automated events traffic controller device, ThinPrep Imaging System, [employer] ANCILLARY TESTING MAINTENANCE MECHANIC HPV Ordered, Please see separate report 07/14/2023 10:08 AM [facility] Note The pap test is a screening technique, not a diagnostic procedure. It is used primarily to screen for squamous cancers and precursor lesions. Published studies have shown that it is subject to both false negative and false positive results. The pap test should not be used as the sole means to diagnose or exclude pre-malignant and malignant lesions. 07/14/2023 10:08 AM CDT [facility] Other (Cervical) 06/30/2023 9:24 AM CDT 07/03/2023 10:17 AM CDT Shanon Gan NP PATHOLOGY/CYTOLOG Y Performing Organization Address [facility] Co de Phone Number [facility] [address] [place] [address], * HPV HIGH RISK (06/30/2023 9:24 AM CDT) TYPE 16 Negative Negative 07/04/2023 2:05 PM CDT [facility] TYPE 18 Negative Negative 07/04/2023 2:05 PM CDT [facility] OTHER HIGH RISK TYPES Negative Negative 07/04/2023 2:05 PM CDT [facility] Other (Cervical) 06/30/2023 9:24 AM CDT 07/03/2023 10:17 AM CDT Narrative [facility] - 07/04/2023 2:05 PM CDT HPV types 16, 18, 31, 33, 35, 39, 45, 51, 52, 56, 58, 59, 66 and 68 DNA were undetectable or below the pre-set threshold. Methodology: Dakotah Mira 4800 HPV Test Shanon Gan NP MICROBIOLOGY Performing Organization Address [facility] Co de Phone Number [facility] [address] [place] [address], * ANTI HCV (06/07/2017 8:44 AM CDT) HEPATITIS C ANTIBODY Non-React norberto Non-React norberto 06/07/2017 4:03 PM CDT [facility] Comment:Antibodies to HCV no t detected; does not exclude the possibility of exposure to HCV. Blood BLOOD SPECIMEN / Unknown Venipuncture / Unknown 06/07/2017 8:44 AM CDT 06/07/2017 8:45 AM CDT Jasmyn BRITT SEND OUTS [facility] [address] [place] [address], [place] * ANTI HIV 1/2 (06/07/2017 8:44 AM CDT) HIV-1/HIV-2 ANTIBODY Non-Reacti ve Non-Reacti ve 06/07/2017 3:59 PM CDT [facility] Comment:HIV-1 p24 and HIV-1/ HIV-2 Ab not detected. Blood BLOOD SPECIMEN / Unknown Venipuncture / Unknown 06/07/2017 8:44 AM CDT 06/07/2017 8:45 AM CDT Jasmyn BRITT SEND OUTS [facility] [address] [place] [address], from Last 3 Months or Most Recently Relevant to Health Maintenance Care Teams Gum Rolling Machine Tender Relationship Specialty Start Date End Date Luis E Harmon MD [address] [place] [address] PCP - General Family Practice 12/06/21 Alysha Rogers Family Practice 06/08/11
--- OUTSIDE RECORDS SUMMARY | 2023-08-12 23:48 | XMS_ITS | Encounter Summary ---
Author Organization [place] Address [address] [place] [address] Care Team Providers Care Carbon Paste Mixer Operator Name Role Phone [facility]- Primary Care Provider Reason for Visit * Reason Comments Abdominal Pain Vaginal Bleeding Encounter Details Date Type Department Care Team (Late st Contact Info) Description 06/25/2023 8:27 AM CDT - 06/25/2023 12:19 PM CDT Emergency [facility] Emergency Dept [address] [place] [address] Lino Cardoza MD [facility] [address] [place], [place] [id number] Right lower quadrant pain Discharge Disposition: Home or Self Care Social History Tobacco Use Types Packs/Day Years Used Date Smoking Tobacco: Never Assessed Adolescent Education Answer Date Record ed Getting School Help Needed Not on file 06/24 Sex and Gender Information Value Date Recorded Sex Assigned at Not on file Gender Identity Not on file Sexual Orientation Not on file documented as of this encounter Last Filed Vital Signs Vital Sign Reading Time Taken Comments Blood Pressure 113/69 06/25/2023 12:01 PM CDT Pulse 78 06/25/2023 12:01 PM CDT Temperature 36.4 ??C (97.5 ??F) 06/25/2023 8:25 AM CD T Respiratory Rate 18 06/25/2023 8:25 AM CDT Oxygen Saturation 99% 06/25/2023 12:01 PM CDT Inhaled Oxygen Concentration - - Weight 48.1 kg (106 lb 0.7 oz) 06/25/2023 8:25 A M CDT Height 167.6 cm (5' 6) 06/25/2023 8:25 AM CDT Body Mass Index 17.12 06/25/2023 8:25 AM CDT documented in this encounter Discharge Instructions * Discharge Instructions* Lino Cardoza MD - 06/25/2023 11:26 AM CDT I recommending dose of Tylenol, ibuprofen and heat pack for your pain. You can try the MiraLAX to see if this helps with your constipation. If over the next 24 to 72 hours, you develop progressive pain, develop fever, or any concerning symptoms. Otherwise, make appoint to follow-up with your primary doctor. documented in this encounter Medications at Time of Discharge Medication Sig Dispensed Refills Start Date End Date polyethylene glycol (MIRALAX) 17 GM/Dose powder Take 17 g (1 Capful) by mouth daily for 30 days 527 g 06/25/2023 07/25/2023 documented as of this encounter ED Notes * Yanni Rivera RN - 06/25/2023 8:22 AM CDT Pt arrives to the ED due to having lower pelvic pain that began a couple days ago. States the pain has been getting worse. Pain moves into lower back and into right leg. Vaginal bleeding began 1 hr ago. Last period June 01. Pt states feeling dizzy/lightheaded. * Lino Cardoza MD - 06/25/2023 8:20 AM CDT History Chief Complaint: Abdominal Pain and Vaginal Bleeding HPI Tricia Boyce is a 23 year old female history of depression presenting for evaluation of right lower pelvic pain in the setting of vaginal bleeding that began today. She does have a history of ovarian cysts. Denies any change in her bowel or bladder habits other than some mild constipation, no anorexia. Denies fevers. Denies other vaginal discharge. Independent Historian: None - Patient Only Review of External Notes: None Medications: Lexapro Vyvanse Past Medical History: Depression ADD Past Surgical History: None Physical Exam Patient Vitals for the past 24 hrs: BP Temp Temp src Pulse Resp SpO2 Height Weight 06/25/23 0930 121/78 -- -- 98 -- 100 % -- -- 06/25/23 0920 123/68 -- -- -- -- 100 % -- -- 06/25/23 0900 120/61 -- -- 90 -- 100 % -- -- 06/25/23 0825 123/84 97.5 ??F (36.4 ??C) Temporal 102 18 100 % 1.676 m (5' 6) 48.1 kg (106 lb 0.7 oz) Physical Exam Constitutional: Alert, attentive, GCS 15 Eyes: EOM are normal, anicteric, conjugate gaze CV: distal extremities warm, well perfused Chest: Non-labored breathing on RA GI: No overt abdominal tenderness, no distension. No guarding or rebound. Neurological: Alert, attentive, moving all extremities equally. Skin: Skin is warm and dry. Emergency Department Course Imaging: US Pelvis Cmplt w Transvag & Doppler LmtPel Duplex Limited Final Result IMPRESSION: 1. Normal pelvic ultrasound. Laboratory: Labs Ordered and Resulted from Time of ED Arrival to Time of ED Departure BASIC METABOLIC PANEL - Normal Result Value Sodium 138 Potassium 3.9 Chloride 101 Carbon Dioxide (CO2) 23 Anion Gap 14 Urea Nitrogen 8.0 Creatinine 0.61 GFR Estimate >90 Calcium 9.3 Glucose 95 ISTAT HCG QUALITATIVE POCT - Normal HCG Qualitative POCT Negative CBC WITH PLATELETS AND DIFFERENTIAL WBC Count 7.9 RBC Count 4.57 Hemoglobin 14.0 Hematocrit 42.3 MCV 93 MCH 30.6 MCHC 33.1 RDW 13.7 Platelet Count 262 % Neutrophils 56 % Lymphocytes 25 % Monocytes 11 % Eosinophils 7 % Basophils 1 % Immature Granulocytes 0 NRBCs per 100 WBC 0 Absolute Neutrophils 4.4 Absolute Lymphocytes 2.0 Absolute Monocytes 0.9 Absolute Eosinophils 0.5 Absolute Basophils 0.1 Absolute Immature Granulocytes 0.0 Absolute NRBCs 0.0 TYPE AND SCREEN, ADULT ABO/RH(D) B POS Antibody Screen Negative SPECIMEN EXPIRATION DATE [id number] ABO/RH TYPE AND SCREEN Emergency Department Course & Assessments: Interventions: Medications sodium chloride 0.9% BOLUS 1,000 mL (0 mLs Intravenous Stopped 06/25/23 0954) Independent Interpretation (X-rays, CTs, rhythm strip): None Consultations/Discussion of Management or Tests: None Social Determinants of Health affecting care: None Disposition: The patient was discharged. Impression & Plan Medical Decision Makin-year-old without significant past medical history presenting for right lower pelvic pain that developed overnight associated with vaginal bleeding the this morning. Last LMP was beginning of this month. test is negative as such pelvic ultrasound w/ duplex obtained which shows no etiology of her pain. On recheck, she continues to have no overt right lower quadrant pain, she has some tenderness just medial to her anterior iliac crest but is tender even superficially, I have low suspicion for appendicitis. I did review with her that appendicitis has not been ruled out though is considered less likely. She was comfortable with trial of Tylenol, ibuprofen, stool softeners given her c onstipation and agrees to return should she develop worsening pain or fever. Otherwise, recommend follow-up with her PCP for a recheck. Diagnosis: ICD-10-CM 1. Right lower quadrant pain R10.31 far Discharge Medications: New Prescriptions POLYETHYLENE GLYCOL (MIRALAX) 17 GM/DOSE POWDER Take 17 g (1 Capful) by mouth daily for 30 days Lino Cardoza MD [facility] 11:33 AM 06/25/23 Lino Cardoza MD 06/25/23 1133 documented in this encounter Plan of Treatment Not on file documented as of this encounter Procedures Procedure Name Priority Date/Time Associated Diagnosis Comments US PELVIS COMPLETE W TRANSVAGINAL AND DOPPLER LIMITED STAT 06/25/2023 10:13 AM CDT ISTAT HCG QUALITATIVE POCT STAT 06/25/2023 8:54 AM CDT EXTRA TUBE STAT 06/25/2023 8:50 AM CDT EXTRA RED TOP TUBE STAT 06/25/2023 8: 50 AM CDT EXTRA BLUE TOP TUBE STAT 06/25/2023 8 :50 AM CDT CBC WITH PLATELETS AND DIFFERENTIAL STAT 06/25/2023 8:50 AM CDT TYPE AND SCREEN, ADULT STAT 06/25/2023 8:50 AM CDT CBC WITH PLATELETS & DIFFERENTIAL STAT 06/25/2023 8:50 AM CDT ABO/RH TYPE AND SCREEN STAT 06/25/2023 8:50 AM CDT BASIC METABOLIC PANEL STAT 06/25/2023 8:50 AM CDT documented in this encounter Results * US Pelvis Cmplt w Transvag & Doppler LmtPel Duplex Limited (06/25/2023 10:13 AM CDT) Anatomical Region Laterality Modality Abdomen/Pelvis Ultrasound 06/25/2023 10:1 3 AM CDT Impressions 06/25/2023 10:19 AM CDT IMPRESSION: ?? 1. ??Normal pelvic ultrasound. Narrative 06/25/2023 10:19 AM CDT EXAM: US PELVIS COMPLETE W TRANSVAGINAL AND DOPPLER LIMITED LOCATION: [facility] DATE: 06/25/2023 INDICATION: R pelvic pain, ??ve preg test COMPARISON: None. TECHNIQUE: Transabdominal scans were performed. Endovaginal ultrasound was performed to better visualize the adnexa. Color flow with spectral Doppler and waveform analysis performed. FINDINGS: UTERUS: 7.2 x 4.7 x 4.1 cm. Normal in size and position with no masses. ENDOMETRIUM: [3 mm. Normal smooth endometrium. RIGHT OVARY: 4.6 x 2.6 x 2.4 cm. Normal with arterial and venous duplex flow identified. LEFT OVARY: 3.3 x 2.3 x 1.6 cm. Normal with arterial and venous duplex flow identified. No significant free fluid. Procedure Note Luis E Whaley MD - 06/25/2023 EXAM: US PELVIS COMPLETE W TRANSVAGINAL AND DOPPLER LIMITED LOCATION: [facility] DATE: 06/25/2023 INDICATION: R pelvic pain, ve preg test COMPARISON: None. TECHNIQUE: Transabdominal scans were performed. Endovaginal ultrasound wasperformed to better visualize the adnexa. Color flow with spectral Dopplerand waveform analysis performed. FINDINGS: UTERUS: 7.2 x 4.7 x 4.1 cm. Normal in size and position with no masses. ENDOMETRIUM: [3 mm. Normal smooth endometrium. RIGHT OVARY: 4.6 x 2.6 x 2.4 cm. Normal with arterial and venous duplexflow identified. LEFT OVARY: 3.3 x 2.3 x 1.6 cm. Normal with arterial and venous duplexflow identified. No significant free fluid. IMPRESSION: 1. Normal pelvic ultrasound. Lino Cardoza MD IMG US ORDERABLES * iStat HCG Qualitative , POCT (06/25/2023 8:54 AM CDT) Pathologist [facility] HCG Qualitative POCT Negative Negative, Indeterminate 06/25/2023 9:07 AM CDT RH LABORATORY POC Blood, venous BLOOD SPECIMEN / Unknown 06/25/2023 8:54 AM CDT 06/25/2023 9:07 AM CDT Lino Cardoza MD LAB - BEAKER POCT LABORATORY [facility] Lab [address] Lab (1st floor, no room number) [place] [address] * Extra Red Top Tube (06/25/2023 8:50 AM CDT) Pathologist [facility] Hold Specimen JIC 06/25/2023 10:06 AM CDT LABORATORY Blood VENOUS LINE / Unknown Venipuncture / Unknown 06/25/2023 8:50 AM CDT 06/25/2023 8:56 AM CDT Lino Cardoza MD LAB - BLOOD ORDER [facility] LABORATORY [facility] Care Lab [address] Lab (1st floor, no room number) [place] [address] * Extra Blue Top Tube (06/25/2023 8:50 AM CDT) Hold Specimen JIC 06/25/2023 10:06 AM CDT RH LABORATORY Blood VENOUS LINE / Unknown Venipuncture / Unknown 06/25/2023 8:50 AM CDT 06/25/2023 8:55 AM CDT Lino Cardoza MD LAB - BLOOD ORDER [facility]ZARO RH LABORATORY [facility] Acute Care Lab [address] [facility] Lab (1st floor, no room number) [place] [address] * Adult Type and Screen (06/25/2023 8:50 AM CDT) ABO/RH(D) B POS 06/25/2023 8:33 AM CDT RH BLOOD BANK Antibody Screen Negative Negative 06/25/2023 8:33 AM CDT RH BLOOD BANK SPECIMEN EXPIRATION DATE [id number] 06/25/2023 8:33 AM CDT RH BLOOD BANK Blood VENOUS LINE / Unknown Venipuncture / Unknown 06/25/2023 8:50 AM CDT 06/25/2023 8:56 AM CDT Lino Cardoza MD LAB - BLOOD BANK TEST ORDER Performing Organization Address City/[facility]/ZIP Co de Phone Number BLOOD BANK [address] [place] [address], [facility] * CBC with platelets and differential (06/25/2023 8:50 AM CDT) WBC Count 7.9 4.0 - 11.0 10e3/uL 06/25/2023 9:01 AM CDT RH LABORATORY RBC Count 4.57 3.80 - 5.20 10e6/uL 06/25/2023 9:01 AM CDT RH LABORATORY Hemoglobin 14.0 11.7 - 15.7 g/dL 06/25/2023 9:01 AM CDT RH LABORATORY Hematocrit 42.3 35.0 - 47.0 % 06/25/2023 9:01 AM CDT RH LABORATORY MCV 93 78 - 100 fL 06/25/2023 9:01 AM CDT RH LABORATORY MCH 30.6 26.5 - 33.0 pg 06/25/2023 9:01 AM CDT RH LABORATORY MCHC 33.1 31.5 - 36.5 g/dL 06/25/2023 9:01 AM CDT RH LABORATORY RDW 13.7 10.0 - 15.0 % 06/25/2023 9:01 AM CDT RH LABORATORY Platelet Count 262 150 - 450 10e3/uL 06/25/2023 9:01 AM CDT RH LABORATORY % Neutrophils 56 % 06/25/2023 9:01 AM CDT RH LABORATORY % Lymphocytes 25 % 06/25/2023 9:01 AM CDT RH LABORATORY % Monocytes 11 % 06/25/2023 9:01 AM CDT RH LABORATORY % Eosinophils 7 % 06/25/2023 9:01 AM CDT RH LABORATORY % Basophils 1 % 06/25/2023 9:01 AM CDT RH LABORATORY % Immature Granulocytes 0 % 06/25/2023 9:01 AM CDT RH LABORATORY NRBCs per 100 WBC 0 <1 /100 024 9:01 AM CDT RH LABORATORY Absolute Neutrophils 4.4 1.6 - 8.3 10e3/uL 06/25/2023 9:01 AM CDT RH LABORATORY Absolute Lymphocytes 2.0 0.8 - 5.3 10e3/uL 06/25/2023 9:01 AM CDT RH LABORATORY Absolute Monocytes 0.9 0.0 - 1.3 10e3/uL 06/25/2023 9:01 AM CDT RH LABORATORY Absolute Eosinophils 0.5 0.0 - 0.7 10e3/uL 06/25/2023 9:01 AM CDT RH LABORATORY Absolute Basophils 0.1 0.0 - 0.2 10e3/uL 06/25/2023 9:01 AM CDT RH LABORATORY Absolute Immature Granulocytes 0.0 <=0.4 10e3/uL 06/25/2023 9:01 AM CDT RH LABORATORY Absolute NRBCs 0.0 10e3/uL 06/25/2023 9:01 AM CDT RH LABORATORY Blood VENOUS LINE / Unknown Venipuncture / Unknown 06/25/2023 8:50 AM CDT 06/25/2023 8:56 AM CDT Lino Cardoza MD LAB - BLOOD ORDER [facility] LABORATORY [facility] Acute Care Lab [address] Lab (1st floor, no room number) [place] [address], [facility] * Basic metabolic panel (BMP) (06/25/2023 8:50 AM CDT) [facility] Sodium 138 135 - 145 mmol/L 06/25/2023 9:19 AM CDT LABORATORY Comment:Reference intervals for this test were updated on 11/22/2022 to more accurately reflect our healthy population. There may be differences in the flagging of prior results with similar values performed with this method. Interpretation of those prior results can be made in the context of the updated reference intervals. Potassium 3.9 3.4 - 5.3 mmol/L 06/25/2023 9:19 AM CDT LABORATORY Chloride 101 98 - 107 mmol/L 06/25/2023 9:19 AM CDT LABORATORY Carbon Dioxide (CO2) 23 22 - 29 mmol/L 06/25/2023 9:19 AM CDT LABORATORY Anion Gap 14 7 - 15 mmol/L 06/25/2023 9:19 AM CDT LABORATORY Urea Nitrogen 8.0 6.0 - 20.0 mg/dL 06/25/2023 9:19 AM CDT LABORATORY Creatinine 0.61 0.51 - 0.95 mg/dL 06/25/2023 9:19 AM CDT LABORATORY GFR Estimate >90 >60 mL/min/1. 73m2 06/25/2023 9:19 AM CDT LABORATORY Calcium 9.3 8.6 - 10.0 mg/dL 06/25/2023 9:19 AM CDT LABORATORY Glucose 95 70 - 99 mg/dL 06/25/2023 9:19 AM CDT LABORATORY Blood VENOUS LINE / Unknown Venipuncture / Unknown 06/25/2023 8:50 AM CDT 06/25/2023 8:56 AM CDT Lino Cardoza MD LAB - BLOOD ORDER [facility] LABORATORY [facility] Acute Care Lab [address] [facility] Lab (1st floor, no room number) [place] [address], [facility] documented in this encounter Visit Diagnoses Diagnosis Right lower quadrant pain Abdominal pain, right lower quadrant documented in this encounter Administered Medications Inactive Administered Medications - up to 3 most recent administrations Medication Order MAR Action Action Date Dose Rate Site sodium chloride 0.9% BOLUS 1,000 mL Intravenous, 1,000 mL, ONCE, at 1,000 mL/hr, Administer over 1 Hours, On 06/25/23 at 0835, For 1 dose $New Bag 06/25/2023 8:51 AM CDT 1,000 mLs 1000 mL/hr documented in this encounter Active and Recently Administered Medications Times are shown in CDT. Scheduled Medication Order 06/23/2023 06/24/2023 06/25/2023 sodium chloride 0.9% BOLUS 1,000 mL (COMPLETED) Intravenous, 1,000 mL, ONCE, at 1,000 mL/hr, Administer over 1 Hours, On 06/25/23 at 0835, For 1 dose 0851 ($New Bag - Pro vider: Enrique Porter RN)[id number] (Stopped - Provider: Oma Marcano RN) documented in this encounter Care Teams Carbon Paste Mixer Operator Relationship Specialty Start Date End Date [facility]- [address] [place] [address] PCP - General 06/25/23 documented as of this encounter
--- OUTSIDE RECORDS SUMMARY | 2023-08-12 23:48 | XMS_ITS | Referral Summary ---
Author Organization [place] Address [address] [place] [address]. [place] [address] Care Team Providers Care Contract Technical Writer Name Role Phone [facility]- Primary Care Provider Encounters Date Type Department Care Team Description 06/25/2023 Travel 06/25/2023 8:27 AM CDT - 06/25/2023 12:19 PM CDT Emergency [facility] Emergency Dept [address] [place] [phone] Lino Cardoza MD Right lower quadrant pain Discharge Disposition: Home or Self Care from Last 3 Months Allergies No known active allergies Medications Medication Sig Dispensed Refills Start Date End Date Status polyethylene glycol (MIRALAX) 17 GM/Dose powder Take 17 g (1 Capful) by mouth daily for 30 days 527 g 06/25/2023 07/25/2023 Social History Tobacco Use Types Packs/Day Years Used Date Smoking Tobacco: Never Assessed Adolescent Education Answer Date Record ed Getting School Help Needed Not on file 06/24 Sex and Gender Information Value Date Recorded Sex Assigned at Not on file Gender Identity Not on file Sexual Orientation Not on file Last Filed Vital Signs Vital Sign Reading [...] Mass Index 17.12 06/25/2023 8:25 AM CDT Plan of Treatment Not on file Procedures Procedure Name Priority Date/Time Associated Diagnosis Comments US PELVIS COMPLETE W TRANSVAGINAL AND DOPPLER LIMITED STAT 06/25/2023 10:13 AM CDT ISTAT HCG QUALITATIVE POCT STAT 06/25/2023 8:54 AM CDT ABO/RH TYPE AND SCREEN STAT 06/25/2023 8:50 AM CDT CBC WITH PLATELETS & DIFFERENTIAL STAT 06/25/2023 8:50 AM CDT TYPE AND SCREEN, ADULT STAT 06/25/2023 8:50 AM CDT EXTRA RED TOP TUBE STAT 06/25/2023 8: 50 AM CDT EXTRA BLUE TOP TUBE STAT 06/25/2023 8 :50 AM CDT CBC WITH PLATELETS AND DIFFERENTIAL STAT 06/25/2023 8:50 AM CDT EXTRA TUBE STAT 06/25/2023 8:50 AM CDT BASIC METABOLIC PANEL STAT 06/25/2023 8:50 AM CDT from Last 3 Months Results * US Pelvis Cmplt w Transvag & Doppler LmtPel Duplex Limited (06/25/2023 10:13 AM CDT) Anatomical Region Laterality Modality Abdomen/Pelvis Ultrasound 06/25/2023 10:1 3 AM CDT Impressions 06/25/2023 10:19 AM CDT IMPRESSION: ?? 1. ??Normal pelvic ultrasound. Narrative 06/25/2023 10:19 AM CDT EXAM: US PELVIS COMPLETE W TRANSVAGINAL AND DOPPLER LIMITED LOCATION: [facility] DATE: 06/25/2023 INDICATION: R pelvic pain, ??ve [...] COMPLETE W TRANSVAGINAL AND DOPPLER LIMITED LOCATION: [facility] DATE: 06/25/2023 INDICATION: R pelvic pain, ve [...] 1. Normal pelvic ultrasound. Lino Cardoza MD [facility] US ORDERABLES * iStat HCG Qualitative , POCT (06/25/2023 8:54 AM CDT) HCG Qualitative POCT Negative Negative, Indeterminate 06/25/2023 9:07 AM CDT RH LABORATORY POC Blood, venous BLOOD SPECIMEN / Unknown 06/25/2023 8:54 AM CDT 06/25/2023 9:07 AM CDT Lino Cardoza MD [facility] POCT RH LABORATORY [facility] Acute Care Lab [address] Lab (1st floor, no room number) [place] [address] * Extra Red Top Tube (06/25/2023 8:50 AM CDT) Hold Specimen [facility] 06/25/2023 10:06 AM CDT RH LABORATORY Blood VENOUS LINE / Unknown Venipuncture / Unknown 06/25/2023 8:50 AM CDT 06/25/2023 8:56 AM CDT Lino Cardoza MD LAB - BLOOD ORDER [facility]AR[facility] Lab [address] Lab (1st floor, no room number) [place] [address] * Extra Blue Top Tube (06/25/2023 8:50 AM CDT) Hold Specimen [facility] 06/25/2023 10:06 AM CDT RH LABORATORY Blood VENOUS LINE / Unknown Venipuncture / Unknown 06/25/2023 8:50 AM CDT 06/25/2023 8:55 AM CDT Lino Cardoza MD LAB - BLOOD ORDER LAZARO [facility] Acute Care Lab [address] Lab (1st floor, no room number) [place] [phone] * CBC with platelets and differential (06/25/2023 [...] MD LAB - BLOOD ORDER [facility] LABORATORY [facility] Acute Care Lab [address] [facility] Lab (1st floor, no room number) [place] [address] * Adult Type and Screen (06/25/2023 8:50 AM CDT) ABO/RH(D) B POS 06/25/2023 8:33 AM CDT RH BLOOD BANK Antibody Screen Negative Negative 06/25/2023 8:33 AM CDT RH BLOOD BANK SPECIMEN EXPIRATION DATE [id number] 06/25/2023 8:33 AM CDT RH BLOOD BANK Blood VENOUS LINE / Unknown Venipuncture / Unknown 06/25/2023 8:50 AM CDT 06/25/2023 8:56 AM CDT Lino Cardoza MD LAB - BLOOD BANK TEST ORDER Performing Organization Address [facility] Co de Phone Number RH BLOOD BANK [address] [place] [address] * Basic metabolic panel (BMP) (06/25/2023 8:50 AM CDT) Sodium 138 135 - 145 mmol/L 06/25/2023 9:19 AM CDT RH LABORATORY Comment:Reference intervals for this test were updated on 11/22/2022 to more accurately reflect our healthy population. There may be differences in the flagging of prior results with similar values performed with this method. Interpretation of those prior results can be made in the context of the updated reference intervals. Potassium 3.9 3.4 - 5.3 mmol/L 06/25/2023 9:19 AM CDT RH LABORATORY Chloride 101 98 - 107 mmol/L 06/25/2023 9:19 AM CDT RH LABORATORY Carbon Dioxide (CO2) 23 22 - 29 mmol/L 06/25/2023 9:19 AM CDT RH LABORATORY Anion Gap 14 7 - 15 mmol/L 06/25/2023 9:19 AM CDT RH LABORATORY Urea Nitrogen 8.0 6.0 - 20.0 mg/dL 06/25/2023 9:19 AM CDT RH LABORATORY Creatinine 0.61 0.51 - 0.95 mg/dL 06/25/2023 9:19 AM CDT RH LABORATORY GFR Estimate >90 >60 mL/min/1. 73m2 06/25/2023 9:19 AM CDT RH LABORATORY Calcium 9.3 8.6 - 10.0 mg/dL 06/25/2023 9:19 AM CDT RH LABORATORY Glucose 95 70 - 99 mg/dL 06/25/2023 9:19 AM CDT RH LABORATORY Blood VENOUS LINE / Unknown Venipuncture / Unknown 06/25/2023 8:50 AM CDT 06/25/2023 8:56 AM CDT Lino Cardoza MD LAB - BLOOD ORDER [facility] LABORATORY [facility] Acute Care Lab [address] Lab (1st floor, no room number) [place] [address], [facility] from Last 3 Months Care Teams Contract Technical Writer Relationship Specialty Start Date End Date [facility]- [address] [place] [address] PCP - General 06/25/23
--- OUTSIDE RECORDS SUMMARY | 2023-08-12 23:48 | XMS_ITS | Clinical Summary ---
Author Organization [place] Address [address] [place] [address]. [place] [address] Care Team Providers Care Student Services Counselor Name Role Phone [facility]- Primary Care Provider Allergies No known active allergies Medications Medication Sig Dispensed Refills Start Date End Date Status polyethylene glycol (MIRALAX) 17 GM/Dose powder Take 17 g (1 Capful) by mouth daily for 30 days 527 g 06/25/2023 07/25/2023 Encounters Date Type Department Care Team Description 06/25/2023 8:27 AM CDT - 06/25/2023 12:19 PM CDT Emergency [facility] Emergency Dept [address] [place] [phone] Lino Cardoza MD Right lower quadrant pain Discharge Disposition: Home or Self Care 06/25/2023 Travel from Last 3 Months Social History Tobacco Use Types Packs/Day Years [...] 06/25/2023 8:25 AM CDT Plan of Treatment Health Maintenance Due Date Last Done Comments ADVANCE CARE PLANNING 1998 ANNUAL REVIEW OF HM ORDERS 1998 YEARLY PREVENTIVE VISIT 1998 HIV SCREENING 2013 HEPATITIS C SCREENING 01/21/2016 COVID-19 Vaccine ( season) 2022 04/27/2021, 04/06/2021 PHQ-2 (once per calendar year) 2023 INFLUENZA VACCINE (Season Ended) 2023 04/07/2021, 12/01/2017, 12/24/2014, Additional history exists PAP 07/26/2025 07/26/2022 DTAP/TDAP/TD IMMUNIZATION (7 - Td or Tdap) 11/18/2027 11/17/2017, 11/06/2009, 10/22/2003, Additional history exists IPV IMMUNIZATION Completed 10/22/2003, , 1998, Additional history exists MENINGITIS IMMUNIZATION Completed 09/25/2014 HPV IMMUNIZATION Completed 06/22/2015, , 10/01/2012 HEPATITIS B IMMUNIZATION Completed 022, 02/16/1999, 1998, Additional history exists Pneumococcal Vaccine: Pediatrics (0 to 5 Years) and At-Risk Patients (6 to 64 Years) Aged Out No longer eligible based on patient's age to complete this topic RSV MONOCLONAL ANTIBODY Aged Out No l onger eligible based on patient's age to complete [...] COMPLETE W TRANSVAGINAL AND DOPPLER LIMITED LOCATION: [facility] DATE: 06/25/2023 INDICATION: R pelvic pain, ??ve [...] COMPLETE W TRANSVAGINAL AND DOPPLER LIMITED LOCATION: [facility] DATE: 06/25/2023 INDICATION: R pelvic pain, ve [...] Cardoza MD LAB - BEAKER POCT LABORATORY [facility] Acute Care Lab [address] Lab (1st floor, no room number) [place] [address] * Extra Red Top Tube (06/25/2023 8:50 AM CDT) Hold Specimen JIC 06/25/2023 10:06 AM CDT RH LABORATORY Blood VENOUS LINE / Unknown Venipuncture / Unknown 06/25/2023 8:50 AM CDT 06/25/2023 8:56 AM CDT Lino Cardoza MD LAB - BLOOD ORDER LAZARO LABORATORY [facility] Acute Care Lab [address] Lab (1st floor, no room number) [place] [address] * Extra Blue Top Tube (06/25/2023 8:50 AM CDT) Hold Specimen [facility] 06/25/2023 10:06 AM CDT RH LABORATORY Blood VENOUS LINE / Unknown Venipuncture / Unknown 06/25/2023 8:50 AM CDT 06/25/2023 8:55 AM CDT Lino Cardoza MD LAB - BLOOD ORDER LAZARO RH LABORATORY [facility] Acute Care Lab [address] Lab (1st floor, no room number) [place] [phone] * CBC with platelets and [...] LAB - BLOOD ORDER LAZARO RH LABORATORY [facility] Acute Care Lab [address] Lab (1st floor, no room number) [place] [address], [facility] * Adult Type and Screen (06/25/2023 8:50 AM CDT) ABO/RH(D) B POS 06/25/2023 8:33 AM CDT RH BLOOD BANK Antibody Screen Negative Negative 06/25/2023 8:33 AM CDT RH BLOOD BANK SPECIMEN EXPIRATION DATE [id number] 06/25/2023 8:33 AM CDT BLOOD BANK Blood VENOUS LINE / Unknown Venipuncture / Unknown 06/25/2023 8:50 AM CDT 06/25/2023 8:56 AM CDT Lino Cardoza MD LAB - BLOOD BANK TEST ORDER [place] [address] * Basic metabolic panel (BMP) [...] Cardoza MD LAB - BLOOD ORDER LAZARO [facility] Acute Care Lab [address] Lab (1st floor, no room number) [place] [address], [facility] from Last 3 Months Care Teams Student Services Counselor Relationship Specialty Start Date End Date [facility]- [address] [place] [address] PCP - General 06/25/23
== END 2023-08-13 | disposition home or self-care (01) ==
LOC: ED 23:46
PROVIDERS: Emergency Provider Internal Medicine; PCP Family Medicine
DX: H66.92 Otitis media, unspecified, left ear (principal); L01.00 Impetigo, unspecified
CPT/HCPCS: 87651; 99283

== ENCOUNTER 2023-08-17 09:39 | Day surgery (SDC) | payer BC, SELFPAY ==
--- OUTSIDE RECORDS SUMMARY | 2023-08-17 09:42 | XMS_ITS | Clinical Summary ---
Author Organization [place] Address [address] [place] [address]. [place] [address] Care Team Providers Care Briquette Maker Name Role Phone [facility]- Primary Care Provider Allergies No known active allergies Medications Medication Sig Dispensed Refills Start Date End Date Status polyethylene glycol (MIRALAX) 17 GM/Dose powder Take 17 g (1 Capful) by mouth daily for 30 days 527 g 06/25/2023 07/25/2023 Encounters Date Type Department Care Team Description 06/25/2023 8:27 AM CDT - 06/25/2023 12:19 PM CDT Emergency [facility] Emergency Dept [address] [place] [phone] Lino Cardoza MD Right lower quadrant pain [...] COMPLETE W TRANSVAGINAL AND DOPPLER LIMITED LOCATION: [facility] DATE: 06/25/2023 INDICATION: R pelvic pain, [...] COMPLETE W TRANSVAGINAL AND DOPPLER LIMITED LOCATION: [facility] DATE: 06/25/2023 INDICATION: R pelvic pain, [...] Cardoza MD LAB - BEAKER POCT LABORATORY [facility] Acute Care Lab [address] Lab (1st floor, no room number) [place] [address] * Extra Red Top Tube (06/25/2023 8:50 AM CDT) Hold Specimen JIC 06/25/2023 10:06 AM CDT RH LABORATORY Blood VENOUS LINE / Unknown Venipuncture / Unknown 06/25/2023 8:50 AM CDT 06/25/2023 8:56 AM CDT Lino Cardoza MD LAB - BLOOD ORDER LAZARO LABORATORY [facility] Acute Care Lab [address] Lab (1st floor, no room number) [place] [address] * Extra Blue Top Tube (06/25/2023 8:50 AM CDT) Hold Specimen [facility] 06/25/2023 10:06 AM CDT RH LABORATORY Blood VENOUS LINE / Unknown Venipuncture / Unknown 06/25/2023 8:50 AM CDT 06/25/2023 8:55 AM CDT Lino Cardoza MD LAB - BLOOD ORDER LAZARO RH LABORATORY [facility] Acute Care Lab [address] Lab (1st floor, no room number) [place] [phone] * CBC with platelets and differential [...] LAB - BLOOD ORDER LAZARO RH LABORATORY [facility] Acute Care Lab [address] Lab (1st floor, no room number) [place] [address], [facility] * Adult Type and Screen (06/25/2023 8:50 AM CDT) ABO/RH(D) B POS 06/25/2023 8:33 AM CDT RH BLOOD BANK Antibody Screen Negative Negative 06/25/2023 8:33 AM CDT RH BLOOD BANK SPECIMEN EXPIRATION DATE [id number] 06/25/2023 8:33 AM CDT BLOOD BANK Blood VENOUS LINE / Unknown Venipuncture / Unknown 06/25/2023 8:50 AM CDT 06/25/2023 8:56 AM CDT Lino Cardoza MD LAB - BLOOD BANK TEST ORDER BLOOD [place] [address] * Basic metabolic panel (BMP) (06/25/2023 [...] Cardoza MD LAB - BLOOD ORDER LAZARO [facility] Acute Care Lab [address] Lab (1st floor, no room number) [place] [address], [facility] from Last 3 Months Care Teams Briquette Maker Relationship Specialty Start Date End Date [facility]- [address] [place] [address] PCP - General 06/25/23
--- OUTSIDE RECORDS SUMMARY | 2023-08-17 09:42 | XMS_ITS | Referral Summary ---
Author Organization [place] Address [address] [place] [address]. [place] [address] Care Team Providers Care Tripe Finisher Name Role Phone [facility]- Primary Care Provider Encounters Date Type Department Care Team Description 06/25/2023 Travel 06/25/2023 8:27 AM CDT - 06/25/2023 12:19 PM CDT Emergency [facility] Emergency Dept [address] [place] [phone] Lino Cardoza MD Right lower quadrant pain [...] COMPLETE W TRANSVAGINAL AND DOPPLER LIMITED LOCATION: [facility] DATE: 06/25/2023 INDICATION: R pelvic pain, [...] COMPLETE W TRANSVAGINAL AND DOPPLER LIMITED LOCATION: [facility] DATE: 06/25/2023 INDICATION: R pelvic pain, [...] 1. Normal pelvic ultrasound. Lino Cardoza MD [facility] [place] ORDER[facility] * iStat HCG Qualitative , POCT (06/25/2023 8:54 AM CDT) HCG Qualitative POCT Negative Negative, Indeterminate 06/25/2023 9:07 AM CDT RH LABORATORY POC Blood, venous BLOOD SPECIMEN / Unknown 06/25/2023 8:54 AM CDT 06/25/2023 9:07 AM CDT Lino Cardoza MD [facility] POCT RH LABORATORY [facility] Acute Care Lab [address] Lab (1st floor, no room number) [place] [address] * Extra Red Top Tube (06/25/2023 8:50 AM CDT) Hold Specimen [facility] 06/25/2023 10:06 AM CDT RH LABORATORY Blood VENOUS LINE / Unknown Venipuncture / Unknown 06/25/2023 8:50 AM CDT 06/25/2023 8:56 AM CDT Lino Cardoza MD LAB - BLOOD ORDER LAZARO [facility] Lab [address] Lab (1st floor, no room number) [place] [address] * Extra Blue Top Tube (06/25/2023 8:50 AM CDT) Hold Specimen [facility] 06/25/2023 10:06 AM CDT RH LABORATORY Blood VENOUS LINE / Unknown Venipuncture / Unknown 06/25/2023 8:50 AM CDT 06/25/2023 8:55 AM CDT Lino Cardoza MD LAB - BLOOD ORDER LAZARO [facility] Acute Care Lab [address] Lab (1st floor, no room number) [place] [phone] * CBC with platelets and [...] MD LAB - BLOOD ORDER LAZARO LABORATORY [facility] Acute Care Lab [address] [facility] Lab (1st floor, no room number) [place] [address] * Adult Type and Screen (06/25/2023 8:50 AM CDT) ABO/RH(D) B POS 06/25/2023 8:33 AM CDT RH BLOOD BANK Antibody Screen Negative Negative 06/25/2023 8:33 AM CDT RH BLOOD BANK SPECIMEN EXPIRATION DATE [id number] 06/25/2023 8:33 AM CDT RH BLOOD BANK Blood VENOUS LINE / Unknown Venipuncture / Unknown 06/25/2023 8:50 AM CDT 06/25/2023 8:56 AM CDT Lino Cardoza MD LAB - BLOOD BANK TEST ORDER Performing Organization Address [facility] Co de Phone Number RH BLOOD BANK [address] [place] [address] * Basic metabolic panel (BMP) [...] MD LAB - BLOOD ORDER LAZARO LABORATORY [facility] Acute Care Lab [address] Lab (1st floor, no room number) [place] [address], [facility] from Last 3 Months Care Teams Tripe Finisher Relationship Specialty Start Date End Date [facility]- [address] [place] [address] PCP - General 06/25/23
--- OUTSIDE RECORDS SUMMARY | 2023-08-17 09:42 | XMS_ITS | Encounter Summary ---
Author Organization [place] Address [address] [place] [address] Care Team Providers Care Apprentice Cook Name Role Phone [facility]- Primary Care Provider Encounter Details [...] on filedocumented in this encounter Care Teams Apprentice Cook Relationship Specialty Start Date End Date [facility]- [address] [place] [address] PCP - General 06/25/23 documented as of this encounter
--- OUTSIDE RECORDS SUMMARY | 2023-08-17 09:42 | XMS_ITS | Clinical Summary ---
Author Organization [facility] Address [place], [place] [address] Care Team Providers Care Language Asst Name Role Phone Alysha Rogers Unavailable Unavailable [...] once daily. 90 Tablet 1 07/19/2023 Active lurasidone (LATUDA) 20 mg tablet [...] every 3 days 2 Tablet 08/02/2023 Active mupirocin (BACTROBAN OINTMENT) ointment Apply topically to affected area(s) once daily. 22 g 08/12/2023 Active lisdexamfetamine (VYVANSE) 60 mg capsule Take 1 Capsule (60 mg) by mouth once daily in the morning. 30 Capsule 08/16/2023 Active lisdexamfetamine (VYVANSE) 60 mg capsule Take 1 Capsule (60 mg) by mouth every morning. 30 Capsule 05/31/2023 07/19/2023 Discontinue d(Reorder (E-cancel not sent)) lisdexamfetamine (VYVANSE) 70 mg capsule Take 1 Capsule (70 mg) by mouth every morning. 30 Capsule 06/23/2023 07/19/2023 Discontinue d(*Medicati on adjustment) lisdexamfetamine (VYVANSE) 60 mg capsule Take 1 Capsule (60 mg) by mouth once daily in the morning. 30 Capsule 07/19/2023 08/16/2023 Discontinue d(Reorder (E-cancel not sent)) Active Problems Problem Noted Date Diagnosed Date [...] Department Care Team Description 06/30/2023 Lab Requisition [facility] [phone] Shanon Gan, POLYMER SPECIALIST from Last 3 Months Immunizations Name Administration [...] EVENT Routine 06/30/2023 9: 24 AM CDT CONTRACT ASSOCIATE MANAGER THIN PREP PAP SCREEN IMAGED Routine 06/30/2023 [...] CDT Shanon Gan NP LAB BILL ONLY [facility]AL LABORATORY [address] [place] [address], * CONTRACT ASSOCIATE MANAGER THIN PREP PAP SCREEN IMAGED (06/30/2023 9:24 AM CDT) Case Report Gynecologic Cytology Report ? Case: [id number] ? Authorizing Provider: ??Shanon Gan NP ?? Collected: ? 06/30/2023 0924 ? Ordering Location: ? [facility] ?Received: ?07/03/2023 1017 ? First Screen: ?Natalya, Patrice ? Rescreen: ?Danni Thakur ? Specimen: ?CONTRACT ASSOCIATE MANAGER ThinPrep Vial Screening, Cervical ? 07/14/2023 10:08 AM CDT [facility] [employer] [facility]- ENTRAL LABORATORY INTERPRETATION/ RESULT NEGATIVE FOR INTRAEPITHELIAL LESION OR MALIGNANCY (NIL) (none) 07/14/2023 10:08 AM CDT [facility] [employer] [facility]- ENTRAL LABORATORY IMEN ADEQUACY Satisfactory for evaluation Endocervical component present 07/14/2023 10:08 AM CDT [facility] [employer] LABORATORY- ENTRAL LABORATORY HPV REQUEST HPV and PAP 07/14/2023 10:08 AM CDT [facility] [employer] LABORATORY-C ENTRAL LABORATORY Date of LMP 06/25/2023 07/14/2023 10:08 AM CDT [facility] [employer] [facility] ENTRAL LABORATORY Last Pap Date 07/26/2022 07/14/2023 10:08 AM CDT [facility]-C ENTRAL LABORATORY Last Pap Result LSIL 10:08 AM CDT [facility] [employer] LABORATORY-C ENTRAL LABORATORY Abnormal Pap or [place] Bx in last 5 years Yes 07/14/2023 10:08 AM CDT [facility]-C ENTRAL LABORATORY [place] Bx Done Today No 07/14/2023 10:08 AM CDT [facility]- ENTRAL LABORATORY Additional Information 07/14/2023 10:08 AM CDT [facility]- ENTRAL LABORATORY Comment: Interpreted at [facility], Central Laboratory - [address], [place] [address] Automated Review Successful 07/14/2023 10:08 AM CDT [facility] EN[facility] LABORATORY Comment:Specimen processed s uccessfully by automated lifestyle coordinator device, ThinPrep Imaging System, [employer] ANCILLARY TESTING CONTRACT ASSOCIATE MANAGER HPV Ordered, Please see separate report 07/14/2023 10:08 AM CDT [facility] Note The pap test is [...] and malignant lesions. 07/14/2023 10:08 AM CDT [facility] Other (Cervical) 06/30/2023 9:24 AM CDT 07/03/2023 10:17 AM CDT Shanon Gan NP PATHOLOGY/CYTOLOG Y Performing Organization Address [facility] de Phone Number [facility] [address] * HPV HIGH RISK (06/30/2023 9:24 AM CDT) TYPE 16 Negative Negative 07/04/2023 2:05 PM CDT [facility] TRAL LABORATORY TYPE 18 Negative Negative 07/04/2023 2:05 PM CDT [facility] TR[facility] LABOR[facility] OTHER HIGH RISK TYPES Negative Negative 07/04/2023 2:05 PM CDT [facility] LAB[facility] Other (Cervical) 06/30/2023 9:24 AM CDT 07/03/2023 10:17 AM CDT Narrative [facility] - 07/04/2023 2:05 PM CDT HPV types 16, 18, 31, 33, 35, 39, 45, 51, 52, 56, 58, 59, 66 and 68 DNA were undetectable or below the pre-set threshold. Methodology: Dakotah Mira 4800 HPV Test Shanon Gan NP MICROBIOLOGY Performing Organization Address [facility] Co de Phone Number [facility] [address] * ANTI HCV (06/07/2017 8:44 AM CDT) HEPATITIS C ANTIBODY Non-React norberto Non-React norberto 06/07/2017 4:03 PM CDT [facility] TRAL LABORAT[facility] Comment:Antibodies to HCV no t detected; does not exclude the possibility of exposure to HCV. Blood BLOOD SPECIMEN / Unknown Venipuncture / Unknown 06/07/2017 8:44 AM CDT 06/07/2017 8:45 AM CDT Jasmyn BRITT SEND OUTS [facility] [address] [place] [address], * ANTI HIV 1/2 (06/07/2017 8:44 AM CDT) HIV-1/HIV-2 ANTIBODY Non-Reacti ve Non-Reacti ve 06/07/2017 3:59 PM CDT [facility] TRAL LABORAT[facility] Comment:HIV-1 p24 and HIV-1/ HIV-2 Ab not detected. Blood BLOOD SPECIMEN / Unknown Venipuncture / Unknown 06/07/2017 8:44 AM CDT 06/07/2017 8:45 AM CDT Jasmny BRITT SEND OUTS [facility] [address] [place] [address], from Last 3 Months or Most Recently Relevant to Health Maintenance Care Teams Language Asst Relationship Specialty Start Date End Date Harmon, Luis E Moses, MD [address] [place] [address] PCP - General Family Practice 12/06/21 Alysha [facility] 06/08/11
--- OUTSIDE RECORDS SUMMARY | 2023-08-17 09:42 | XMS_ITS | Encounter Summary ---
Author Organization [place] Address [address] [place] [address] Care Team Providers Care Patient Admitting Representative Name Role Phone [facility]- Primary Care Provider Reason for Visit * Reason Comments Abdominal Pain Vaginal Bleeding Encounter Details Date Type Department Care Team (Late st Contact Info) Description 06/25/2023 8:27 AM CDT - 06/25/2023 12:19 PM CDT Emergency [facility] Emergency Dept [address] [place] [address] Lino Cardoza MD [facility] [address] [place], [place] [address] Right lower quadrant pain Discharge Disposition: Home [...] POS Antibody Screen Negative SPECIMEN EXPIRATION DATE [id number] ABO/RH TYPE AND SCREEN Emergency Department Course [...] COMPLETE W TRANSVAGINAL AND DOPPLER LIMITED LOCATION: [facility] DATE: 06/25/2023 INDICATION: R pelvic pain, [...] COMPLETE W TRANSVAGINAL AND DOPPLER LIMITED LOCATION: [facility] DATE: 06/25/2023 INDICATION: R pelvic pain, [...] , POCT (06/25/2023 8:54 AM CDT) Pathologist [facility] HCG Qualitative POCT Negative Negative, Indeterminate 06/25/2023 9:07 AM CDT RH LABORATORY POC Blood, venous BLOOD SPECIMEN / Unknown 06/25/2023 8:54 AM CDT 06/25/2023 9:07 AM CDT Lino Cardoza MD LAB - BEAKER POCT LABORATORY [facility] Lab [address] Lab (1st floor, no room number) [place] [address] * Extra Red Top Tube (06/25/2023 8:50 AM CDT) Pathologist [facility] Hold Specimen JIC 06/25/2023 10:06 AM CDT LABORATORY Blood VENOUS LINE / Unknown Venipuncture / Unknown 06/25/2023 8:50 AM CDT 06/25/2023 8:56 AM CDT Lino Cardoza MD LAB - BLOOD ORDER LAZARO LABORATORY [facility] Care Lab [address] Lab (1st floor, no room number) [place] [address] * Extra Blue Top Tube (06/25/2023 8:50 AM CDT) Hold Specimen JIC 06/25/2023 10:06 AM CDT RH LABORATORY Blood VENOUS LINE / Unknown Venipuncture / Unknown 06/25/2023 8:50 AM CDT 06/25/2023 8:55 AM CDT Lino Cardoza MD LAB - BLOOD ORDER LAZARO RH LABORATORY [facility] Acute Care Lab [address] [facility] Lab (1st floor, no room number) [place] [address] * Adult Type and Screen (06/25/2023 8:50 AM CDT) ABO/RH(D) B POS 06/25/2023 8:33 AM CDT RH BLOOD BANK Antibody Screen Negative Negative 06/25/2023 8:33 AM CDT RH BLOOD BANK SPECIMEN EXPIRATION DATE [id number] 06/25/2023 8:33 AM CDT RH BLOOD BANK Blood VENOUS LINE / Unknown Venipuncture / Unknown 06/25/2023 8:50 AM CDT 06/25/2023 8:56 AM CDT Lino Cardoza MD LAB - BLOOD BANK TEST ORDER Performing Organization Address City[facility]/ZIP Co de Phone Number BLOOD BANK [address] [place] [address] [place] [address], [facility] * CBC with platelets and differential [...] MD LAB - BLOOD ORDER LAZARO LABORATORY [facility] Acute Care Lab [address] Lab (1st floor, no room number) [place] [address], [facility] * Basic metabolic panel (BMP) (06/25/2023 8:50 AM CDT) [facility] Sodium 138 135 - 145 mmol/L 06/25/2023 [...] MD LAB - BLOOD ORDER LAZARO LABORATORY [facility] Acute Care Lab [address] [facility] Lab (1st floor, no room number) [place] [address], [facility] documented in this encounter Visit Diagnoses Diagnosis [...] RN) documented in this encounter Care Teams Patient Admitting Representative Relationship Specialty Start Date End Date [facility]- [address] [place] [address] PCP - General 06/25/23 documented as of this encounter
[2023-08-17 10:09] LABS: Ur HCG Qualitative* Negative (Negative)
[2023-08-17 10:20] VITALS: BP 108/95; PULSE 92; RESP 16; TEMP 37; O2SAT 100
[2023-08-17 10:21] VITALS: BMI 22.8
[2023-08-17] MEDS: SODIUM CHLORIDE 0.9 % (FLUSH) 10 ML SYRINGE IVF (10:30)
[2023-08-17] MEDS: LACTATED RINGERS 1000 ML 1,000 ML 100 ML IV (10:30)
[2023-08-17] MEDS: BUPIVACAINE 0.25% 30 ML INJECTION (11:07)
[2023-08-17 11:21] VITALS: BP 107/66; PULSE 91; RESP 16; TEMP 36.6; O2SAT 100
--- NOTE | 2023-08-17 11:22 | W.ANESCHARGE ---
Anesthesia Charges Start Date/Time Anesthesia Start Date: 08/17/23 Anesthesia Start Time: 10:43 Stop Date/Time Anesthesia Stop Date: 08/17/23 Anesthesia Stop Time: 11:19
--- NOTE | 2023-08-17 11:27 | W.PM.H&PU ---
History & Physical Update History & Physical Update H&P Reviewed and patient assessed: No changes noted
--- NOTE | 2023-08-17 11:29 | PM.GSPRC ---
Operative Note Date of procedure: 08/17/23 Pre-op diagnosis: Lipoma of the forehead Post-op diagnosis: Same Type of Procedure: Excision of forehead lipoma Indications: Patient presented to clinic with a growing mass of the forehead. Different treatment options were reviewed, including observation versus excision. Risks and benefits were discussed with the patient deciding to proceed with excision. Given the location and patient anxiety it was recommended that she proceed with removal in the operating room. All questions and concerns were addressed with patient agreeing to proceed. Procedure Description: After discussing the risks and benefits of the procedure, the patient signed informed consent.? The operative site was marked and the patient was brought to the operating room and placed on the operating table in supine position.? Care was taken to pad the patient's pressure points.?? The patient was then given sedation by anesthesia.?? The operative site was then prepped and draped in the usual sterile fashion.? A time-out was then performed. The area was anesthetized with mixture of 1% lidocaine and 0.25% bupivacaine. A transverse 1 cm incision was made in the hairline just above the forehead lipoma. Cautery used was to dissect through the subcutaneous tissue. Blunt dissection was performed with a fine-tipped mosquito to the for had lipomatous mass. This was dissected out circumferentially with blunt dissection. The mass was removed in its entirety and measured 2 x 1 x 2 cm in size. Hemostasis was assured with electrocautery. The incision was closed in layers with interrupted 3 0 Vicryl and running 4-0 Monocryl. Sterile dressings were then applied. ? The patient was then woken and transported to the recovery area in stable condition. ? The patient tolerated the procedure well. Findings: 2 x 1 x 2 cm lipoma of the forehead Anesthesia: MAC and local Surgeon: Negin Robert MD Estimated blood loss (mL): 1 Additional Specimen Information: Lipoma of the forehead Condition: stable Disposition: same day
[2023-08-17 11:35] VITALS: BP 110/72; PULSE 87; RESP 16; O2SAT 100
[2023-08-17 11:51] VITALS: BP 111/79; PULSE 78; RESP 16; O2SAT 99
[2023-08-17 12:11] VITALS: BP 115/78; PULSE 75; RESP 16; TEMP 36.7; O2SAT 99
== END 2023-08-17 12:20 | disposition home or self-care (01) ==
PROVIDERS: PCP Family Medicine; Visit Provider Surgery
PROC: (CPT 21012; principal; 2023-08-17 10:45)
DX: D17.0 Benign lipomatous neoplasm of skin and subcutaneous tissue of head, face and neck (principal)
CPT/HCPCS: 21012; 00300; 81025; 88304; J0665; J2250; J2704; J3010; J7120

== ENCOUNTER 2024-01-04 16:23 | Outpatient (CLI) | payer BC, SELFPAY ==
--- OUTSIDE RECORDS SUMMARY | 2024-01-04 16:27 | XMS_ITS | Clinical Summary ---
Author Organization [facility] Address [address] [place] [id number] Care Team Providers Care Agency Manager Name Role Phone [facility]- Primary Care Provider Allergies No known active allergies Medications No known medications Social History Tobacco Use Types Packs/Day Years Used Date Smoking Tobacco: Never Assessed Adolescent Education Answer Date Record ed Getting School Help Needed Not on file 06/24 Comments No Sex and Gender Information Value Date Recorded Sex Assigned at Not on file Legal Sex Female 4:02 AM SYSTEMATIC THEOLOGY PROFESSOR Gender Identity Not on file Sexual Orientation [...] HIV SCREENING 2013 HEPATITIS C SCREENING 01/21/2016 PHQ-2 (once per calendar year) 2023 COVID-19 Vaccine ( season) 2023 04/27/2021, 04/06/2021 INFLUENZA VACCINE (#1) 2023 , 12/01/2017, 12/24/2014, Additional history exists PAP 07/26/2025 07/26/2022 DTAP/TDAP/TD IMMUNIZATION (7 - Td or Tdap) 11/18/2027 11/17/2017, 11/06/2009, 10/22/2003, Additional history exists RSV VACCINE (1 - 1-dose 75+ series) 2073 MENINGITIS IMMUNIZATION Completed 09/25/2014 HPV IMMUNIZATION Completed [...] on patient's age to complete this topic Insurance [place] [id number] [place] [address] [place] [id number] [place] [address] Care Teams Agency Manager Relationship Specialty Start Date End Date [facility]- [address] [place] [address] PCP - General 06/25/23
--- OUTSIDE RECORDS SUMMARY | 2024-01-04 16:27 | XMS_ITS | Clinical Summary ---
Author Organization [facility] Address [place], [place] [address] Care Team Providers Care Sleeve Machine Tender Name Role Phone Alysha Rogers Unavailable Unavailable Luis E Harmon MD Primary Care Provider + Allergies No known active allergies Medications Medication Sig Dispensed Refills Start Date End Date Status Adapalene 0.3 % topical gel APPLY A THIN LAYER TO FACE VERY OTHER NIGHT INCREASING TO NIGHTLY TOLERATED.FOLLO W WITH MOISTURIZER. 10/28/2021 Active fluconazole (Diflucan) 150 mg tabletIndications:Y east vaginitis ONE BY MOUTH THIS EVENING AND MAY REPEAT IN 3-5 DAYS IF NEEDED 2 Tablet 12/08/2021 Active amoxicillin (AMOXIL) 875 mg tablet Take 1 Tablet (875 mg) by mouth two times daily. 14 Tablet 04/10/2023 Active gentamicin (GENOPTIC) 0.3 % ophthalmic solution Place 2 Drops into both eyes four times daily until clear x 48 hours 5 mL 04/10/2023 Active fluconazole (DIFLUCAN) 150 mg tablet Take 1 Tablet (150 mg) by mouth every 3 days 2 Tablet 08/02/2023 Active mupirocin (BACTROBAN OINTMENT) ointment Apply topically to affected area(s) once daily. 22 g 08/12/2023 Active escitalopram oxalate (LEXAPRO) 20 mg tablet Take 1 Tablet (20 mg) by mouth once daily. 30 Tablet 1 10/05/2023 Active ondansetron (ZOFRAN ODT) [address] 1 Tablet (8 mg) on the tongue 2 times daily if needed for nausea and vomiting. 30 Tablet 10/05/2023 Active lisdexamfetamine (VYVANSE) 60 mg capsule Take 1 Capsule (60 mg) by mouth once daily in the morning. 30 Capsule 01/07/2024 Active dextroamphetamine-a mphetamine (ADDERALL) 10 mg tablet Take 1 Tablet (10 mg) by mouth once daily. 30 Tablet 12/26/2023 Active lisdexamfetamine (VYVANSE) 60 mg capsule Take 1 Capsule (60 mg) by mouth once daily in the morning. 30 Capsule 01/03/2024 Active lisdexamfetamine (VYVANSE) 60 mg capsule Take 1 Capsule (60 mg) by mouth once daily in the morning. 30 Capsule 02/02/2024 Active lisdexamfetamine (VYVANSE) 60 mg capsule Take 1 Capsule (60 mg) by mouth once daily in the morning. 30 Capsule 03/03/2024 Active lisdexamfetamine (VYVANSE) 60 mg capsule Take 1 Capsule (60 mg) by mouth once daily in the morning. 30 Capsule 11/08/2023 4 Discontinue d(Reorder (E-cancel not sent)) lisdexamfetamine (VYVANSE) 60 mg capsule Take 1 Capsule (60 mg) by mouth once daily in the morning. 30 Capsule 12/08/2023 4 Discontinue d(Other - add note to specify (E-cancel not sent)) dextroamphetamine-a mphetamine (ADDERALL) 10 mg tablet Take 1 Tablet (10 mg) by mouth once daily. 30 Tablet 11/27/2023 4 Discontinue d(Reorder (E-cancel not sent)) lisdexamfetamine (VYVANSE) 60 mg capsule Take 1 Capsule (60 mg) by mouth once daily in the morning. 30 Capsule 12/05/2023 4 Discontinue d(Reorder (E-cancel not sent)) Active Problems Problem Noted Date Diagnosed Date Cervical high risk HPV (human papillomavirus) te st positive 12/27/2021 Overview (12/27/2021): 11/01/2019: NIL 12/06/2021: NIL/HPV+ (16/18 neg) Plan: Pap and HPV in 1 year. IUD (intrauterine device) in place 12/06/2021 Overview (12/06/2021): copper 08/2021 Acne vulgaris 12/25/2014 Resolved Problems Problem Noted Date Diagnosed Date Resolved Date No active medical problems 11/29/2010 1 Immunizations Name Administration Dates Next Due DTaP [...] >=3 Years) 01/28/2009 Influenza, IIV4 04/07/2021, 8,12/24/2014,01/28 MENINGOCOCCAL VACCINE 2 VIAL 2MO-55YO (MENVEO) 09/25/2014 MMR 10/22/2003,09/20/2002 Oral Polio Vaccine 1998,1998 Polio Virus, Unspecified [...] Health Maintenance Due Date Last Done Comments BMI (ht and wt on same day) for age 18+ 12/06/2022 12/06/2021, 06/07/2017, 05/23/2017, Additional history exists Depression screening for age 12+ 12/06/2022 12/06/2021, 05/23/2017, 12/29/2016, Additional history exists COVID-19 vaccine series ( season) 2023 04/27/2021, 04/06/2021 Influenza for age 9-49 10/29/2023 2, 12/01/2017, [...] Procedure Name Priority Date/Time Associated Diagnosis Comments MASTER MACHINIST THIN PREP PAP SCREEN IMAGED Routine 06/30/2023 9:24 AM CDT ANTI HIV 1/2 Routine 06/07/2017 8:44 AM CDT Encounter for supervision of normal first in first trimester ANTI HCV Routine 06/07/2017 8:44 AM CDT Encounter for supervision of normal first in first trimester from Last 3 Months or Most Recently Relevant to Health Maintenance Results * MASTER MACHINIST THIN PREP PAP SCREEN IMAGED (06/30/2023 9:24 AM CDT) Case Report Gynecologic Cytology Report ? Case: [id number] ? Authorizing Provider: ??Shanon Gan, RUNNING SPECIALIST ?? Collected: ? 06/30/202324 ? Ordering Location: ? [facility] ?Received: ?07/03/2023 1017 ? First Screen: ?Natalya, Patrice ? Rescreen: ?Danni Thakur ? Specimen: ?MASTER MACHINIST ThinPrep Vial Screening, Cervical ? 07/14/2023 10:08 AM CDT [facility] [employer] [facility] INTERPRETATION/ RESULT NEGATIVE FOR INTRAEPITHELIAL LESION OR MALIGNANCY (NIL) (none) 07/14/2023 10:08 AM CDT [facility] [employer] [facility] IMEN ADEQUACY Satisfactory for evaluation Endocervical component present 07/14/2023 10:08 AM CDT [facility] [employer] LABORATORY- ENTRAL LABORATORY HPV REQUEST HPV and PAP 07/14/2023 10:08 AM CDT [facility] [employer] LABORATORY-C ENTRAL LABORATORY Date of LMP 06/25/2023 07/14/2023 10:08 AM CDT [facility] [employer] [facility] Last Pap Date 07/26/2022 07/14/2023 10:08 AM CDT [facility]-C ENTRAL LABORATORY Last Pap Result LSIL 10:08 AM CDT [facility] [employer] LABORATORY-C ENTRAL LABORATORY Abnormal Pap or [place] Bx in last 5 years Yes 07/14/2023 10:08 AM CDT [facility] [place] Bx Done Today No 07/14/2023 10:08 AM CDT [facility] Additional Information 07/14/2023 10:08 AM CDT [facility] Comment: Interpreted at [facility] [employer] [facility] Central Laboratory - [address], [place] [address] Automated Review Successful 07/14/2023 10:08 AM CDT [facility] EN[facility] Comment:Specimen processed s uccessfully by automated hostess device, ThinPrep Imaging System, [employer] ANCILLARY TESTING MASTER MACHINIST HPV Ordered, Please see separate report 07/14/2023 10:08 AM CDT [facility] Note The pap test is a [...] and malignant lesions. 07/14/2023 10:08 AM CDT [facility] Other (Cervical) 06/30/2023 9:24 AM CDT 07/03/2023 10:17 AM CDT Shanon Gan NP PATHOLOGY/CYTOLOG Y [facility] [address] [place] [address], * ANTI HCV (06/07/2017 8:44 AM CDT) HEPATITIS C ANTIBODY Non-React norberto Non-React norberto 06/07/2017 4:03 PM CDT [facility] TRAL LABORATORY Comment:Antibodies to HCV no t detected; does not exclude the possibility of exposure to HCV. Blood BLOOD SPECIMEN / Unknown Venipuncture / Unknown 06/07/2017 8:44 AM CDT 06/07/2017 8:45 AM CDT Jasmyn BRITT [facility] [address] [place] [address], * ANTI HIV 1/2 (06/07/2017 8:44 AM CDT) HIV-1/HIV-2 ANTIBODY Non-Reacti ve Non-Reacti ve 06/07/2017 3:59 PM CDT [facility] TR[facility] LAB[facility]ATORY Comment:HIV-1 p24 and HIV-1/ HIV-2 Ab not detected. Blood BLOOD SPECIMEN / Unknown Venipuncture / Unknown 06/07/2017 8:44 AM CDT 06/07/2017 8:45 AM CDT [facility]asmyn BRITT [facility] [employer] [facility]AL LAB[facility] [address] [place] [address], from Last 3 Months or Most Recently Relevant to Health Maintenance Care Teams Sleeve Machine Tender Relationship Specialty Start Date End Date Luis E Harmon MD [address] [place] [address] PCP - General Family Practice 12/06/21 Alysha Rogers [facility] 06/08/11
--- OUTSIDE RECORDS SUMMARY | 2024-01-04 16:27 | XMS_ITS | Referral Summary ---
Author Organization [facility] Address [address] [place] [address] Care Team Providers Care Sugar Refiner Name Role Phone [facility]- Primary Care Provider Allergies No known active allergies Medications No known medications Social History Tobacco Use Types Packs/Day Years Used Date Smoking Tobacco: Never Assessed Adolescent Education Answer Date Record ed Getting School Help Needed Not on file 06/24 Comments No Sex and Gender Information Value Date Recorded Sex Assigned at Not on file Legal Sex Female 4:02 AM LEARNING TECHNOLOGIES SPECIALIST Gender Identity Not on file Sexual Orientation [...] CDT Plan of Treatment Not on file Insurance [id number] BANEGAS [id number] [place] [id number] [facility] Care Teams Sugar Refiner Relationship Specialty Start Date End Date [facility]- [address] [place] [address] PCP - General 06/25/23
== END 2024-01-04 16:24 | disposition home or self-care (01) ==
PROVIDERS: PCP Family Medicine; Visit Provider Registered Nurse
DX: R53.83 Other fatigue (principal); Z13.21 Encounter for screening for nutritional disorder; Z13.29 Encounter for screening for other suspected endocrine disorder; Z13.0 Encounter for screening for diseases of the blood and blood-forming organs and certain disorders involving the immune mechanism
CPT/HCPCS: 80053; 82306; 82728; 84443; 86140; 86618

== ENCOUNTER 2024-03-15 07:36 | Emergency (ER) | payer MEDICAID, SELFPAY ==
--- OUTSIDE RECORDS SUMMARY | 2024-03-15 07:38 | XMS_ITS | Encounter Summary ---
Author Organization [facility] Address [address] [place] [address] Care Team Providers Care Harvest Crew Supervisor Name Role Phone [facility]- Primary Care Provider Encounter Details Date Type Department Care Team (Latest Contact Info) Description 02/18/2024 Travel Social History Tobacco Use Types Packs/Day Years Used Date Smoking Tobacco: Never Assessed Adolescent Education Answer Date Record ed Getting School Help Needed Not on file 06/24 Comments No Sex and Gender Information Value Date Recorded Sex Assigned at Not on file Legal Sex Female 4:02 AM COST ESTIMATING CLERK Gender Identity Not on file Sexual Orientation Not on file documented as of this encounter Plan of Treatment Not on file documented as of this encounter Visit Diagnoses Not on filedocumented in this encounter Care Teams Harvest Crew Supervisor Relationship Specialty Start Date End Date [facility]- [address] [place] [address] PCP - General 06/25/23 documented as of this encounter
--- OUTSIDE RECORDS SUMMARY | 2024-03-15 07:38 | XMS_ITS | Referral Summary ---
Author Organization [facility] Address [address] [place] [address] Care Team Providers Care Custom Home Installer Name Role Phone [facility]- Primary Care Provider Encounters Date Type Department Care Team Description 02/18/2024 Travel 02/18/2024 2:15 PM MEDICAL ESTHETICIAN Office Visit [facility] [place] [address] [place] [address] Shantal Burrell PA-C Cellulitis of left foot (Primary Dx) from Last 3 Months Allergies No known active allergies Medications escitalopram (LEXAPRO) 20 MG tablet Take 1 tablet by mouth daily. 01/11/2024 Active lisdexamfetamin e (VYVANSE) 60 MG capsule Take 60 mg by mouth. 01/03/2024 Active Cholecalciferol (VITAMIN D3) 50 MCG (2000 UT) CAPS Take 2,000 Units by mouth. 01/08/2024 Active amoxicillin-cla vulanate (AUGMENTIN) 875-125 MG tabletIndicatio ns:Cellulitis of left foot Take 1 tablet by mouth 2 times daily for 10 days. 20 tablet 02/18/2024 5 Immunizations Name Administration Dates Next Due DTAP (<7y) 10/22/2003, 3,1998,1998,1998 [id number] Novel Flu 01/28/2009 HEPATITIS A (PEDS 12M-18Y) 09/25/2014,10/01/2012 HIB, Unspecified 09/18/2002, 9,1998,1998 HPV Quadrivalent 10/01/2012 HPV9 06/22/2015,09/25/2014 HepB, Unspecified 02/16/1999,1998,04/06/18 99 Hepatitis B, Adult 04/07/2021 Influenza Vaccine >6 months,quad, PF 10/2021,12/01/2017,12/24/2014,2008 MMR 10/22/2003,09/20/2002 Meningococcal ACWY (Menveo ) 09/25/2014 Polio, Unspecified 1998,1998 Poliovirus, inactivated (IPV) 10/22/2003, 003 TDAP (Adacel,Boostrix) 11/17/2017,11/06/2009 TRIHIBIT (DTAP/HIB, <7y) 09/20/2002 Varicella 11/06/2009,02/16/1999 Social History Tobacco Use Types Packs/Day Years Used Date Smoking Tobacco: Never Assessed Adolescent Education Answer Date Record ed Getting School Help Needed Not on file 06/24 Comments No Sex and Gender Information Value Date Recorded Sex Assigned at Not on file Legal Sex Female 4:02 AM MEDICAL ESTHETICIAN Gender Identity Not on file Sexual Orientation Not on file Last Filed Vital Signs Vital Sign Reading Time Taken Comments Blood Pressure 128/84 02/18/2024 2:24 PM MEDICAL ESTHETICIAN Pulse 93 02/18/2024 2:24 PM MEDICAL ESTHETICIAN Temperature 36.6 C (97.8 F) 02/18/2024 2:24 PM MEDICAL ESTHETICIAN Respiratory Rate 16 02/18/2024 2:24 PM MEDICAL ESTHETICIAN Oxygen Saturation 100% 02/18/2024 2:24 PM MEDICAL ESTHETICIAN Inhaled Oxygen Concentration - - Weight 73.5 kg (162 lb) 02/18/2024 2:24 PM MEDICAL ESTHETICIAN Height 167.6 cm (5' 6) 06/25/2023 8:25 AM CDT Body Mass Index 26.15 06/25/2023 8:25 AM CDT Plan of Treatment Not on file Care Teams Custom Home Installer Relationship Specialty Start Date End Date [facility]- [address] [place] [address] PCP - General 06/25/23
--- OUTSIDE RECORDS SUMMARY | 2024-03-15 07:38 | XMS_ITS | Clinical Summary ---
Author Organization [email or web address] Address [place], [place] [address] Care Team Providers Care Process Checker Name Role Phone YoselintrinaAlysha padilla Unavailable Unavailable Luis E Harmon MD Primary Care Provider + Allergies No known active allergies Medications Adapalene 0.3 % topical gel APPLY A THIN LAYER TO FACE VERY OTHER NIGHT INCREASING TO NIGHTLY TOLERATED.FOLL OW WITH MOISTURIZER. 10/29/19 22 Active fluconazole (Diflucan) 150 mg tabletIndications: Yeast vaginitis ONE BY MOUTH THIS EVENING AND MAY REPEAT IN 3-5 DAYS IF NEEDED 2 Tablet 12/09/19 22 Active amoxicillin (AMOXIL) 875 mg tablet Take 1 Tablet (875 mg) by mouth two times daily. 14 Tablet 4 10:55 AM BOWLING BALL MOLDER 04/10/19 24 Active gentamicin (GENOPTIC) 0.3 % ophthalmic solution Place 2 Drops into both eyes four times daily until clear x 48 hours 5 mL 4 10:55 AM BOWLING BALL MOLDER 04/10/19 24 Active fluconazole (DIFLUCAN) 150 mg tablet Take 1 Tablet (150 mg) by mouth every 3 days 2 Tablet 4 2:56 PM CDT 08/02/19 24 Active mupirocin (BACTROBAN OINTMENT) ointment Apply topically to affected area(s) once daily. 22 g 4 4:32 PM CDT 08/12/19 24 Active ondansetron (ZOFRAN ODT) [address] 1 Tablet (8 mg) on the tongue 2 times daily if needed for nausea and vomiting. 30 Tablet 4 4:19 PM CDT 10/05/19 24 Active lisdexamfetamine (VYVANSE) 60 mg capsule Take 1 Capsule (60 mg) by mouth once daily in the morning. 30 Capsule 4 10:08 AM BOWLING BALL MOLDER 01/07/20 24 Active lisdexamfetamine (VYVANSE) 60 mg capsule Take 1 Capsule (60 mg) by mouth once daily in the morning. 30 Capsule 4 11:23 AM BOWLING BALL MOLDER 01/03/20 24 Active lisdexamfetamine (VYVANSE) 60 mg capsule Take 1 Capsule (60 mg) by mouth once daily in the morning. 30 Capsule 02/02/20 24 Active lisdexamfetamine (VYVANSE) 60 mg capsule Take 1 Capsule (60 mg) by mouth once daily in the morning. 30 Capsule 03/03/19 25 Active cholecalciferol (VITAMIN D3) 2,000 unit capsule Take 1 Capsule (2,000 units) by mouth once daily. 90 Capsule 1 4 11:00 AM BOWLING BALL MOLDER 01/08/20 24 Active escitalopram oxalate (LEXAPRO) 20 mg tablet Take 1 Tablet (20 mg) by mouth once daily. 90 Tablet 1 4 11:00 AM BOWLING BALL MOLDER 01/11/20 24 Active lisdexamfetamine (VYVANSE) 60 mg capsule Take 1 Capsule (60 mg) by mouth once daily. 30 Capsule 5 10:32 AM BOWLING BALL MOLDER 03/06/19 25 Active lisdexamfetamine (VYVANSE) 60 mg capsule Take 1 Capsule (60 mg) by mouth once daily in the morning. 30 Capsule 02/05/20 24 Active dextroamphetamine- amphetamine (ADDERALL) 10 mg tablet Take 1 Tablet (10 mg) by mouth once daily. 30 Tablet 4 1:44 PM BOWLING BALL MOLDER 02/26/20 24 Active lisdexamfetamine (VYVANSE) 60 mg capsule 60 mg orally every morning 30 Capsule 02/26/20 24 Active dextroamphetamine- amphetamine (ADDERALL) 10 mg tablet Take 1 Tablet (10 mg) by mouth once daily. 30 Tablet 4 2:39 PM BOWLING BALL MOLDER 01/24/20 24 024 Discontin ued(Reord er (E-cancel not sent)) Active Problems Problem Noted [...] (H1N1), Inactivated 01/28/2009 Influenza A (H1N1), Inactiva irka (Age >=3 Years) 01/28/2009 Influenza, IIV4 04/07/2021, [...] and Fami ly Not on file 09/06/2021 Comments No Sex and Gender Information Value Date Recorded Sex Assigned at Not on file Legal Sex Female 5:48 AM BOWLING BALL MOLDER Gender Identity Not on file Sexual Orientation Not on file Occupation Industry Job Start Date Job End Date Student Not on file Not on file Not on file Obstetrics History Para Term [...] 90 05/13/2022 5:03 PM CDT Temperature 36.6 C (97.9 F) 05/13/2022 5:01 PM CDT Respiratory Rate 20 05/13/2022 5:03 PM CDT [...] Completed 11/17/2017, 11/06/2009 Pneumococcal series for age 6-49 Aged Out No longer eligible based on patient's age to complete this topic Procedures Procedure Name Priority Date/Time Associated Diagnosis Comments NURSE RN BSN THIN PREP PAP SCREEN IMAGED Routine 06/30/2023 9:24 AM CDT ANTI HIV 1/2 Routine 06/07/2017 8:44 AM CDT Encounter for supervision of normal first in first trimester ANTI HCV Routine 06/07/2017 8:44 AM CDT Encounter for supervision of normal first in first trimester from Last 3 Months or Most Recently Relevant to Health Maintenance Results * NURSE RN BSN THIN PREP PAP SCREEN IMAGED (06/30/2023 9:24 AM CDT) Case Report Gynecologic Cytology Report Case: [id number] Authorizing Provider: Shanon Gan NP Collected: 06/30/2023 0924 Ordering Location: [facility] Received: 07/03/2023 1017 First Screen: Patrice Hoang Rescreen: Danni Thakur Specimen: NURSE RN BSN ThinPrep Vial Screening, Cervical 07/14/2023 10:08 AM CDT [facility] INTERPRETATION/ RESULT NEGATIVE FOR INTRAEPITHELIAL LESION OR MALIGNANCY (NIL) (none) 07/14/2023 10:08 AM T [facility] IMEN ADEQUACY Satisfactory for evaluation Endocervical component present 07/14/2023 10:08 AM CDT [facility] HPV REQUEST HPV and PAP 07/14/2023 10:08 AM T [facility] Date of LMP 06/25/2023 07/14/2023 10:08 AM CDT [facility] Last Pap Date 07/26/2022 07/14/2023 10:08 AM T [facility] Last Pap Result LSIL 10:08 AM CDT [facility] Abnormal Pap or [place] Bx in last 5 years Yes 07/14/2023 10:08 AM T [facility] [place] Bx Done Today No 07/14/2023 10:08 AM T [facility] Additional Information 07/14/2023 10:08 AM T [facility] Comment: Interpreted at [facility] - [address], [place] [address] Automated Review Successful 07/14/2023 10:08 AM T [facility] Comment:Specimen processed s uccessfully by automated professor of criminal justice device, ThinPrep Imaging System, [employer] ANCILLARY TESTING NURSE RN BSN HPV Ordered, Please see separate report 07/14/2023 10:08 AM T [facility] Note The pap test is a screening technique, not a diagnostic procedure. It is used primarily to screen for squamous cancers and precursor lesions. Published studies have shown that it is subject to both false negative and false positive results. The pap test should not be used as the sole means to diagnose or exclude pre-malignant and malignant lesions. 07/14/2023 10:08 AM T [facility] Other (Cervical) 06/30/2023 9:24 AM CDT 07/03/2023 10:17 AM CDT Shanon Gan NP PATHOLOGY/CYTOLOGY Final Result [facility] [address] [place] [address], * ANTI HCV (06/07/2017 8:44 AM CDT) HEPATITIS C ANTIBODY Non-React norberto Non-React norberto 06/07/2017 4:03 PM CDT [facility] Comment:Antibodies to HCV no t detected; does not exclude the possibility of exposure to HCV. Blood BLOOD SPECIMEN / Unknown Venipuncture / Unknown 06/07/2017 8:44 AM CDT 06/07/2017 8:45 AM CDT Jasmyn BRITT SEND OUTS Final R esult Performing Organization Address City/[facility]/ZIP Co de Phone Number [facility] [address] [place] [address], * ANTI HIV 1/2 (06/07/2017 8:44 AM CDT) HIV-1/HIV-2 ANTIBODY Non-Reacti ve Non-Reacti ve 06/07/2017 3:59 PM CDT [facility] Comment:HIV-1 p24 and HIV-1/ HIV-2 Ab not detected. Blood BLOOD SPECIMEN / Unknown Venipuncture / Unknown 06/07/2017 8:44 AM CDT 06/07/2017 8:45 AM CDT Jasmyn BRITT SEND OUTS Final R esult [facility] [address] [place] [address], from Last 3 Months or Most Recently Relevant to Health Maintenance Insurance [facility] Care Teams Process Checker Relationship Specialty Start Date End Date Luis E Harmon MD [address] [place] [id number] PCP - General Family Practice 12/06/21 [facility] 06/08/11
--- OUTSIDE RECORDS SUMMARY | 2024-03-15 07:38 | XMS_ITS | Clinical Summary ---
Author Organization [facility] Address [address] [place] [address] Care Team Providers Care Wet End Helper Name Role Phone [facility]- Primary Care Provider Allergies No known active allergies Medications escitalopram [...] for 10 days. 20 tablet 02/18/2024 5 Encounters Date Type Department Care Team Description 02/18/2024 2:15 PM NPS Office Visit [facility] [address] [place] [address] Shantal Burrell PA-C Cellulitis of left foot (Primary Dx) 02/18/2024 Travel from Last 3 Months Immunizations Name Administration Dates Next Due DTAP (<7y) 10/22/2003, 3,1998,1998,1998 [id number] Novel Flu 01/28/2009 HEPATITIS A (PEDS 12M-18Y) [...] on file Legal Sex Female 4:02 AM NPS Gender Identity Not on file Sexual Orientation Not on file Last Filed Vital Signs Vital Sign Reading Time Taken Comments Blood Pressure 128/84 02/18/2024 2:24 PM NPS Pulse 93 02/18/2024 2:24 PM NPS Temperature 36.6 C (97.8 F) 02/18/2024 2:24 PM NPS Respiratory Rate 16 02/18/2024 2:24 PM NPS Oxygen Saturation 100% 02/18/2024 2:24 PM NPS Inhaled Oxygen Concentration - - Weight 73.5 kg (162 lb) 02/18/2024 2:24 PM NPS Height 167.6 cm (5' 6) 06/25/2023 8:25 AM CDT Body Mass Index 26.15 06/25/2023 8:25 AM CDT Plan of Treatment Health Maintenance Due Date Last Done Comments ADVANCE CARE PLANNING 1998 ANNUAL REVIEW OF HM ORDERS 1998 YEARLY PREVENTIVE VISIT 2001 HIV SCREENING 2013 HEPATITIS C SCREENING 01/21/2016 PHQ-2 (once per calendar year) 2023 COVID-19 Vaccine (3 - season) 2023 04/27/2021, 04/06/2021 INFLUENZA VACCINE (#1) 2023 , 12/01/2017, 12/24/2014, Additional history exists PAP 06/29/2026 06/30/2023, 07/26/2022 DTAP/TDAP/TD IMMUNIZATION (7 - Td or Tdap) 11/18/2027 11/17/2017, 11/06/2009, 10/22/2003, Additional history exists RSV VACCINE (1 - 1-dose 75+ series) 2073 MENINGITIS IMMUNIZATION Completed 09/25/2014 HPV IMMUNIZATION Completed 06/22/2015, , 10/01/2012 HEPATITIS B IMMUNIZATION Completed 022, 02/16/1999, 1998, Additional history exists Pneumococcal Vaccine: Pediatrics (0 to 5 Years) and At-Risk Patients (6 to 49 Years) Aged Out No longer eligible based on patient's age to complete this topic RSV MONOCLONAL ANTIBODY Aged Out No l onger eligible based on patient's age to complete this topic Care Teams Wet End Helper Relationship Specialty Start Date End Date [facility]- [address] [place] [address] PCP - General 06/25/23
--- OUTSIDE RECORDS SUMMARY | 2024-03-15 07:38 | XMS_ITS | Continuity of Care Document ---
Author Name [facility] User [email or web address] Address Unknown Organization Unknown Address Unknown Procedures FILTER APPLIED:Only known Procedures with Onset Date within the last 5 years Procedure Date Procedure Provider Additiona l Information Status CHLMYD TRACH DNA AMP PROBE (08684) Completed N.GONORRHOEAE DNA AMP PROB (45230) Completed CT ABD PELV W/CONTRAST (52242) Completed TRANSVAGINAL US NON-OB (50853) Completed US EXAM PELVIC COMPLETE (49256) Completed CHLMYD TRACH DNA AMP PROBE (87340) Completed URINE CULTURE/COLONY COUNT (48829) Completed N.GONORRHOEAE DNA AMP PROB (97767) Completed Encounters FILTER APPLIED:Only known Encounters with Admission Date within the last 5 years Encounter Location Admission Discharge Billing Code Consultant Yohan rebolledo Outpatient [facility] Outpatient [facility] Out[facility]
--- OUTSIDE RECORDS SUMMARY | 2024-03-15 07:38 | XMS_ITS | Encounter Summary ---
Author Organization [facility] Address [address] [place] [address] Care Team Providers Care Manager Planning Name Role Phone [facility]- Primary Care Provider Reason for Visit * Reason Comments Foot Problems 2 days, left foot-af ter using a skin scraper, cut a little too deep, swollen, redness, painful-sore in between 2nd-3rd toe-redness, puss, tdap 11/17/17 Encounter Details Date Type Department Care Team (Late st Contact Info) Description 02/18/2024 2:15 PM NUCLEAR POWERPLANT SUPERVISOR Office Visit [facility] [address] [place] [address] Shantal Burrell PA-C [address] [place], [place] [id number] Cellulitis of left foot (Primary Dx) Social History Tobacco Use Types Packs/Day Years Used Date Smoking Tobacco: Never Assessed Adolescent Education Answer Date Record ed Getting School Help Needed Not on file 06/24 Comments No Sex and Gender Information Value Date Recorded Sex Assigned at Not on file Legal Sex Female 4:02 AM NUCLEAR POWERPLANT SUPERVISOR Gender Identity Not on file Sexual Orientation Not on file documented as of this encounter Last Filed Vital Signs Vital Sign Reading Time Taken Comments Blood Pressure 128/84 02/18/2024 2:24 PM NUCLEAR POWERPLANT SUPERVISOR Pulse 93 02/18/2024 2:24 PM NUCLEAR POWERPLANT SUPERVISOR Temperature 36.6 C (97.8 F) 02/18/2024 2:24 PM NUCLEAR POWERPLANT SUPERVISOR Respiratory Rate 16 02/18/2024 2:24 PM NUCLEAR POWERPLANT SUPERVISOR Oxygen Saturation 100% 02/18/2024 2:24 PM NUCLEAR POWERPLANT SUPERVISOR Inhaled Oxygen Concentration - - Weight 73.5 kg (162 lb) 02/18/2024 2:24 PM NUCLEAR POWERPLANT SUPERVISOR Height - - Body Mass Index 26.15 06/25/2023 8:25 AM CDT documented in this encounter Progress Notes * Shantal Burrell PA-C - 02/18/2024 2:15 PM CST SUBJECTIVE: Tricia Boyce is a 24 year old female who comes in for concerns for infection on her left foot. Patient states that 2 days ago she was using a callus scraper on her foot when the blade cut around the arch of her foot. She did clean but areas become swollen, red and tender to the touch. She also has a sore blister between her second and third toe that she is not sure what caused it. Has not had any drainage. Her tetanus is current in 2018. She has not had any fevers. Patient is not diabetic. She is otherwise at baseline health. No past medical history on file. There is no problem list on file for this patient. Current Outpatient Medications Medication Sig Dispense Refill Cholecalciferol (VITAMIN D3) 50 MCG (2000 UT) CAPS Take 2,000 Units by mouth. escitalopram (LEXAPRO) 20 MG tablet Take 1 tablet by mouth daily. lisdexamfetamine (VYVANSE) 60 MG capsule Take 60 mg by mouth. No current facility-administered medications for this visit. Social History Socioeconomic History Marital status: Single Spouse name: Not on file Number of children: Not on file Years of education: Not on file Highest education level: Not on file Occupational History Not on file Tobacco Use Smoking status: Not on file Smokeless tobacco: Not on file Substance and Sexual Activity Alcohol use: Not on file Drug use: Not on file Sexual activity: Not on file Other Topics Concern Not on file Social History Narrative Not on file Social Drivers of Health Financial Resource Strain: Not on file Food Insecurity: Not on file Transportation Needs: Not on file Physical Activity: Not on file Stress: Not on file Social Connections: Unknown (09/06/2021) [facility] [employer] [facility] Frequency of Communication with Friends and Family: Not on file Interpersonal Safety: Not on file Housing Stability: Not on file ROS negative other than stated above Exam: GENERAL APPEARANCE: healthy, alert and no distress EYES: EOMI, PERRL MS: extremities normal- no gross deformities noted, no evidence of inflammation in joints, FROM in all extremities. SKIN: 1.5 cm laceration near the arch of her left foot from trauma with surrounding erythema warm to the touch and slight tenderness consistent with cellulitis. There is no abscess or streaking proximally. She also does have a erythematous blister between the second and third toe distally. There isno pocket of pustular material streaking proximally. NEURO: Normal strength and tone, sensory exam grossly normal, mentation intact and speech normal assessment/plan: (L03.116) Cellulitis of left foot (primary encounter diagnosis) Comment: Plan: amoxicillin-clavulanate (AUGMENTIN) 875-125 MG tablet Patient with cellulitis of her left foot along with toe secondary to trauma. There is no signs of systemic infection. Her vitals are reassuring. Foot was soaked cleaned topical bacitracin and bandagewas applied. Hygiene measures were reviewed. Will use [id number] med for symptomatic relief. Augmentin for infection. Side effects of med were reviewed and will take with food. Follow-up if symptoms fail to improve as anticipated EAR POWERPLANT SUPERVISOR documented in this encounter Plan of Treatment Not on file documented as of this encounter Visit Diagnoses Diagnosis Cellulitis of left foot- Primary Cellulitis and abscess of foot, except toes documented in this encounter Care Teams Manager Planning Relationship Specialty Start Date End Date [facility]- [address] [place] [address] PCP - General 06/25/23 documented as of this encounter
[2024-03-15 07:58] VITALS: BP 140/84; PULSE 114; RESP 20; TEMP 36.6; O2SAT 100; BMI 24.2
--- NOTE | 2024-03-15 08:21 | XR_ITS ---
Patient: JOHAN AUGUSTE Facility:?[facility] Patient ID:?[id number] Site Patient ID:?[id number]. Site :?1998 Study:?XRay-Chest 2v-03/15/2024 9:01:20 AM Ordering Physician:?UNKNOWN Final Report: Indication: Cough. Technique: Two view(s) of the chest. Comparison: None available. Findings: Normal cardiomediastinal silhouette and pulmonary vasculature. Lungs are well inflated. No focal consolidation, pleural effusion or pneumothorax. No acute osseous abnormality. Impression: No acute cardiopulmonary abnormality identified. Dictated by Roya Phipps MD @ 03/15/2024 9:04:50 AM Signed by:?Roya Phipps MD @03/15/2024 9:04:50 AM (Electronic Signature)
--- NOTE | 2024-03-15 08:23 | ED_ITS ---
HPI - General Adult General Chief complaint: Shortness of Breath/Dyspnea Stated complaint: pain, shortness of breath Time Seen by Provider: 03/15/24 08:18 History of Present Illness HPI narrative: Patient is a 24-year-old woman who woke this morning feeling general malaise body aches fatigue nonproductive cough stiff neck and minimal lower abdominal pain. She has had no nausea no vomiting but does have generalized anorexia. She has had no measured fevers no chills no night sweats. She has no other major concerns. Related Data Home Medications ?Medication ?Instructions ?Recorded ?Confirmed etonogestrel 68 mg subdermal 1 implant subdermal ONCE 10/11/23 01/04/24 implant (Nexplanon) Previous Rx's ?Medication ?Instructions ?Recorded ondansetron 8 mg disintegrating 8 mg PO BID PRN nausea and 10/05/23 tablet vomiting #30 tabs cholecalciferol (vitamin D3) 50 50 mcg PO QDAY 3 months #90 caps 01/08/24 mcg (2,000 unit) capsule escitalopram oxalate 20 mg tablet 20 mg PO DAILY #90 tabs 01/11/24 lisdexamfetamine 60 mg capsule 60 mg PO QDAY #30 caps 02/05/24 (Vyvanse) dextroamphetamine-amphetamine 10 10 mg PO QDAY #30 tabs 02/26/24 mg tablet (Adderall) lisdexamfetamine 60 mg capsule 60 mg PO QAM #30 caps 02/26/24 (Vyvanse) nirmatrelvir 300 mg (150 mg See Rx Instructions PO .COMPLEX 03/15/24 x2)-ritonavir 100 mg tablet,dose #30 ea pack (Paxlovid) Allergies Allergy/AdvReac Type Severity Reaction Status Date / Time lurasidone (From Latuda) Allergy Mild groggy, Verified 03/15/24 08:03 fatigue Review of Systems Status of ROS: Reports: 10 or more systems reviewed and unremarkable except as noted in History and below [facility] Medical History Recurrent major depressive disorder ?F33.9 - Major depressive disorder, recurrent, unspecified (ICD-10) Generalized anxiety disorder ?F41.1 - Generalized anxiety disorder (ICD-10) Attention deficit hyperactivity disorder (ADHD), predominantly inattentive type ?F90.0 - Attention-deficit hyperactivity disorder, predominantly inattentive type (ICD-10) Acne ?L70.9 - Acne, unspecified (ICD-10) Surgical History History of hernia repair (05/2015) ?Z98.890 - Other specified postprocedural states (ICD-10) ?Z87.19 - Personal history of other diseases of the digestive system (ICD-10) Spontaneous vaginal delivery ?O80 - Encounter for full-term uncomplicated delivery (ICD-10) History of tonsillectomy and adenoidectomy (05/2001) ?Z90.89 - Acquired absence of other organs (ICD-10) Social History Narrative: single, 1 son, [employer] student, works at [employer] non-smoker What is your current living situation?: I presently have a place to live Problems where you live: no known problems In the past 12 months, utilities in danger of being shut off: no In past 12 months, lack of transportation kept you from medical appts, meetings, work, or getting things needed for daily living: no Smoking Status: Never smoker Do you use any of these nicotine containing products: None How often do you have a drink containing alcohol: 2-3 times a week How many standard drinks containing alcohol do you have on a typical day: 1 or 2 AUDIT-C Alcohol total score: 3 Non-prescribed substance use: denies use Caffeine: Yes How often does anyone, including family, friends and others, physically hurt you : never How often does anyone, including family, friends and others, insult or talk down to you: rarely How often does anyone, including family, friends and others, threaten you with harm: never How often does anyone, including family, friends and others, scream or curse at you: rarely service: No Health Related Social Needs: Other personal risk factors, not elsewhere classified (Z91.89) Exam Narrative: Exam Narrative: EXAM GENERAL: Patient appears comfortable and well. EYES: No scleral icterus. LYMPH: No supraclavicular or cervical lymphadenopathy. SKIN: Visible skin seen during exam normal or with benign process only. EXT: No dependent lower extremity pedal edema. HEART: Regular rate and rhythm with no murmurs, rubs, or gallops. LUNGS: Clear to auscultation bilaterally with no crackles or wheezes. ABD: Soft, non tender, non distended. PSYCH: Good eye contact, speech is not pressured. Const: Vital Signs, click to edit/add: Vital Signs - 24 hr 03/15/24 07:58 03/15/24 09:26 Temperature 98 F Pulse Rate 95 Pulse Rate [Pulse Oximeter] 114 H Respiratory Rate 20 18 Blood Pressure 132/80 Blood Pressure [Ri ght Upper Arm] 140/84 H Pulse Oximetry 100 99 Oxygen Delivery Me thod Room Air Course Course ED Course: Patient seen examined. CBC CMP UA chest x-ray viral swab pending. Vital Signs Vital signs: Initial Vital Signs Temperature 98 F 03/15/24 07:58 Temperature Source Temporal Artery Scan 03/15/24 07:58 Pulse Rate 114 H 03/15/24 07:58 Respiratory Rate 20 03/15/24 07:58 Blood Pressure 140/84 H 03/15/24 07:58 Blood Pressure Mean 102 03/15/24 07:58 Pulse Oximetry 100 03/15/24 07:58 Oxygen Delivery Method Room Air 03/15/24 07:58 Vital Signs Temperature 98 F 03/15/24 07:58 Pulse Rate 114 H 03/15/24 07:58 Respiratory Rate 20 03/15/24 07:58 Blood Pressure 140/84 H 03/15/24 07:58 Pulse Oximetry 100 03/15/24 07:58 Oxygen Delivery Method Room Air 03/15/24 07:58 Temperature 98 F 03/15/24 07:58 Pulse Rate 95 03/15/24 09:26 Respiratory Rate 18 03/15/24 09:26 Blood Pressure 132/80 03/15/24 09:26 Pulse Oximetry 99 03/15/24 09:26 Oxygen Delivery Method Room Air 03/15/24 07:58 Medical Decision Making MDM Narrative Medical decision making narrative: Patient is a 24-year-old woman who comes in today with cough general malaise body aches and fatigue. Workup is largely unremarkable with the exception she is positive for COVID 19. She his on room air and can be discharged home I did send in Paxil of id for her. I recommend Tylenol Motrin rest and fluids. Primary care follow-up as needed I sleep for 5 days mask for an additional 5 days. Lab Data Labs: Lab Results 03/15/24 03/15/24 Range/Units 08:35 08:38 WBC 7.55 (4.50-11.00) K/uL RBC 3.87 L (4.00-5.20) m/uL Hgb 12.2 (12.0-16.0) gm/dL Hct 36.6 (33.0-51.0) % MCV 95 (80-100) fL MCH 32 (26-34) pg MCHC 33 (32-36) gm/dL RDW Coeff of Jovany 13.7 (11.5-15.5) % Plt Count 205 (140-440) K/uL Neut % (Auto) 62.8 (42.0-72.0) % Lymph % (Auto) 17.9 L (20-44) % Garfield % (Auto) 12.7 H (0.0-11.0) % Eos % (Auto) 5.8 (0.0-7.0) % Baso % (Auto) 0.7 (0.0-3.0) % Neut # (Auto) 4.74 (1.7-7.0) K/uL Lymph # (Auto) 1.40 (0.90-2.90) K/uL Garfield # (Auto) 1.00 H (0.00-0.90) K/UL Eos # (Auto) 0.44 (0.00-0.50) K/uL Baso # (Auto) 0.05 (0.00-0.30) K/uL Abs Immat Gran (auto) 0.01 (0.00-0.30) K/uL Imm/Tot Granulo (auto) 0.1 % Sodium 134 L (135-149) mmol/L Potassium 3.4 L (3.6-5.1) mmol/L Chloride 101 (96-114) mmol/L Carbon Dioxide 25 (20-32) mmol/L Anion Gap 8 (7-15) mEq/L BUN 8 (5-24) mg/dL Creatinine 0.6 (0.5-1.5) mg/dL Estimated Creat Clear 133.01 Estimated GFR 127 ml/min Glucose 84 (60-115) mg/dL Calcium 9.1 (8.4-10.6) mg/dL Total Bilirubin 1.4 (0.1-1.5) mg/dL AST 97 H (12-35) U/L ALT 56 H (4-35) U/L Alkaline Phosphatase 128 (40-150) U/L Total Protein 7.3 (6.0-8.3) g/dL Albumin 4.3 (3.3-5.0) g/dL Urine Color Yellow (Yellow) Urine Appearance Clear (Clear) Urine pH 6.0 (5.0-8.5) Ur Specific [place] <= 1.005 (1.000-1.030) Urine Protein Negative (Negative) Urine Glucose (UA) Negative (Negative) Urine Ketones Negative (Negative) Urine Blood Trace-intact A (Negative) Urine Nitrite Negative (Negative) Urine Bilirubin Negative (Negative) Urine Urobilinogen 0.2 (0.2-1.0) Ur Leukocyte Esterase Negative (Negative) Urine RBC 0-2 (0-2) Urine WBC 0-2 (0-5) Ur Squamous Epith Cells Few (None-Few) Urine Bacteria Few A (None) SARS-CoV-2 (PCR) POSITIVE SARS-CoV-2 A (Negative) Influenza Type A (PCR) Negative PCR FLU A (Negative) Influenza Type B (PCR) Negative PCR FLU B (Negative) RSV (PCR) Negative PCR RSV (Negative) Discharge Plan Discharge Clinical Impression: COVID-19 Patient Disposition: Home, Self-Care Condition: Stable Instructions: COVID-19 (Coronavirus Disease 2019) (ED) Additional Instructions: Paxilovid as directed Tylenol Motrin Rest Fluids Isolate for 5 days and mask for additional 5 days. Activity Level: No Restrictions Discharge Diet: Regular Prescriptions: New Paxlovid 300 mg (150 mg x 2)-100 mg tablets,dose pack See Rx Instructions .ROUTE .COMPLEX Qty: 30 0RF Rx Instructions: take TWO 150 mg tablets of nirmatrelvir with ONE 100 mg tablet of ritonavir twice daily for 5 days No Action Nexplanon 68 mg implant 1 implant subdermal ONCE Rx Instructions: as a single dose ondansetron 8 mg tablet,disintegrating 8 mg PO BID PRN (Reason: nausea and vomiting) Qty: 30 0RF cholecalciferol (vitamin D3) 50 mcg (2,000 unit) capsule 50 mcg PO QDAY 90 Days Qty: 90 1RF escitalopram oxalate 20 mg tablet 20 mg PO DAILY Qty: 90 1RF lisdexamfetamine [Vyvanse] 60 mg capsule 60 mg PO QDAY Qty: 30 0RF dextroamphetamine-amphetamine [Adderall] 10 mg tablet 10 mg PO QDAY Qty: 30 0RF lisdexamfetamine [Vyvanse] 60 mg capsule 60 mg PO QAM Qty: 30 0RF Follow Up/Referrals: LuisE Harmon MD [Primary Care Provider] - Stand Alone Forms: [facility] Info Instructions
[2024-03-15 08:42] LABS: Basophils Absolute Auto 0.05 K/uL (0.00-0.30); Basophils Percent Auto 0.7 % (0.0-3.0); Eosinophils Absolute Auto 0.44 K/uL (0.00-0.50); Eosinophils Percent Auto 5.8 % (0.0-7.0); Hematocrit 36.6 % (33.0-51.0); Hemoglobin* 12.2 gm/dL (12.0-16.0); Immature Granulocytes Abs Auto 0.01 K/uL (0.00-0.30); Immature Granulocytes Pct Auto 0.1 %; Lymphocytes Percent Auto 17.9 % (20-44); Mean Corpuscular HGB Conc 33 gm/dL (32-36); Mean Corpuscular Hemoglobin 32 pg (26-34); Mean Corpuscular Volume 95 fL (80-100); Monocytes Percent Auto 12.7 % (0.0-11.0); Neutrophils Absolute Auto 4.74 K/uL (1.7-7.0); Neutrophils Percent Auto 62.8 % (42.0-72.0); Platelet Count* 205 K/uL (140-440); RDW Coefficient of Variation % 13.7 % (11.5-15.5); Red Blood Count 3.87 m/uL (4.00-5.20); White Blood Count* 7.55 K/uL (4.50-11.00)
[2024-03-15 08:47] LABS: Slide Review Reflex No
[2024-03-15 08:48] LABS: Appearance Urine Clear (Clear); Bilirubin Urine Negative (Negative); Blood Urine Trace-intact (Negative); Color Urine Yellow (Yellow); Glucose Urine Negative (Negative); Ketones Urine Negative (Negative); Leukocyte Esterase Urine Negative (Negative); Nitrite Urine Negative (Negative); Protein Urine Negative (Negative); Specific Gravity Urine <= 1.005 (1.000-1.030); Urobilinogen Urine 0.2 (0.2-1.0)
[2024-03-15 08:58] LABS: Albumin* 4.3 g/dL (3.3-5.0); Chloride* 101 mmol/L (96-114); Potassium* 3.4 mmol/L (3.6-5.1); Sodium* 134 mmol/L (135-149)
[2024-03-15 09:00] LABS: Bilirubin Total* 1.4 mg/dL (0.1-1.5); Creatinine* 0.6 mg/dL (0.5-1.5); Est. Creatinine Clearance* 133.01; Estimated Glomerular Filt Rate 127 ml/min
[2024-03-15 09:01] LABS: Alanine Aminotransferase* 56 U/L (4-35); Alkaline Phosphatase* 128 U/L (40-150); Anion Gap 8 mEq/L (7-15); Aspartate Amino Transferase* 97 U/L (12-35); Blood Urea Nitrogen* 8 mg/dL (5-24); Calcium* 9.1 mg/dL (8.4-10.6); Carbon Dioxide* 25 mmol/L (20-32); Glucose* 84 mg/dL (60-115); Total Protein* 7.3 g/dL (6.0-8.3)
[2024-03-15 09:02] LABS: Bacteria Urine Few; RBC Urine 0-2 (0-2); Squamous Epithelial Cell Urine Few (None-Few); WBC Urine 0-2 (0-5)
[2024-03-15 09:26] VITALS: BP 132/80; PULSE 95; RESP 18; O2SAT 99
[2024-03-15 09:34] LABS: PCR FLU A Negative PCR FLU A (Negative); PCR FLU B Negative PCR FLU B (Negative); PCR RSV Negative PCR RSV (Negative); SARS PCR* POSITIVE SARS-CoV-2 (Negative)
== END 2024-03-15 10:12 | disposition home or self-care (01) ==
PROVIDERS: Emergency Provider Internal Medicine; PCP Family Medicine
DX: U07.1 COVID-19 (principal)
CPT/HCPCS: 36415; 71046; 80053; 81001; 81003; 85025; 87086; 87631; 99283

== ENCOUNTER 2024-05-16 18:18 | Emergency (ER) | payer MEDICAID, SELFPAY ==
--- OUTSIDE RECORDS SUMMARY | 2024-05-16 18:20 | XMS_ITS | Clinical Summary ---
Author Organization [facility] Address [address] [place] [id number] Care Team Providers Care Steel Erector Name Role Phone [facility]- Primary Care Provider Allergies No known active allergies Medications escitalopram (LEXAPRO) 20 MG tablet Take 1 tablet by mouth daily. 01/11/2024 Active lisdexamfetamine (VYVANSE) 60 MG capsule Take 60 mg by mouth. 01/03/2024 Active Cholecalciferol (VITAMIN D3) 50 MCG (1999 UT) CAPS Take 2,000 Units by mouth. 01/08/2024 Active Encounters Date Type Department Care Team Description 02/18/2024 2:15 PM BALL WORKER Office Visit [facility] [address] [place] [address] Shantal Burrell PA-C Cellulitis of left foot (Primary Dx) 02/18/2024 Travel from Last 3 Months Immunizations Name Administration Dates Next Due DTAP (<7y) 10/22/2003, 3,1998,06/19,1998 [id number] Novel Flu 01/28/2009 HIB, Unspecified 09/18/2002, 9,1998,04/06 HPV Quadrivalent 10/01/2012 HPV9 (Gardasil) 06/22/2015,09/25/2014 HepB, Unspecified 02/16/1999,1998,04/06/18 99 Hepatitis A (Vaqta/Havrix)(P eds 12m-18y) 09/25/2014,10/01/2012 Hepatitis B, Adult (Energix-B/Recombivax HB) 04/07/2021 Influenza Vaccine >6 months,quad, PF 10/2021,12/01/2017,12/24/2014,01/28 MMR (MMRII) 10/22/2003,09/20/2002 Meningococcal ACWY (Menveo ) 09/25/2014 Polio, Unspecified 1998,1998 Poliovirus, inactivated (IPV) 10/22/2003, 003 TDAP (Adacel,Boostrix) 11/17/2017,11/06/2009 TRIHIBIT (DTAP/HIB, <7y) 09/20/2002 Varicella (Varivax) 11/06/2009,02/16/1999 Social History Tobacco Use Types Packs/Day Years Used Date Smoking Tobacco: Never Assessed Adolescent Education Answer Date Record ed Getting School Help Needed Not on file 06/24 Comments No Sex and Gender Information Value Date Recorded Sex Assigned at Not on file Legal Sex Female 4:02 AM BALL WORKER Gender Identity Not on file Sexual Orientation Not on file Last Filed Vital Signs Vital Sign Reading Time Taken Comments Blood Pressure 128/84 02/18/2024 2:24 PM BALL WORKER Pulse 93 02/18/2024 2:24 PM BALL WORKER Temperature 36.6 C (97.8 F) 02/18/2024 2:24 PM BALL WORKER Respiratory Rate 16 02/18/2024 2:24 PM BALL WORKER Oxygen Saturation 100% 02/18/2024 2:24 PM BALL WORKER Inhaled Oxygen Concentration - - Weight 73.5 kg (162 lb) 02/18/2024 2:24 PM BALL WORKER Height 167.6 cm (5' 6) 06/25/2023 8:25 AM CDT Body Mass Index 26.15 06/25/2023 8:25 AM CDT Plan of Treatment Health Maintenance Due Date Last Done Comments ADVANCE CARE PLANNING 1998 ANNUAL REVIEW OF HM ORDERS 1998 YEARLY PREVENTIVE VISIT 2001 COVID-19 Vaccine ( season) 2023 04/27/2021, 04/06/2021 INFLUENZA VACCINE (#1) 2023 2, 12/01/2017, 12/24/2014, Additional history exists PHQ-2 (once per calendar year) 2024 PAP 06/29/2026 06/30/2023, 07/26/2022 DTAP/TDAP/TD IMMUNIZATION (7 - Td or Tdap) 11/18/2027 11/17/2017, 11/06/2009, 10/22/2003, Additional history exists ZOSTER IMMUNIZATION (1 of 2) 01/21/2048 MENINGITIS IMMUNIZATION Completed 09/25/2014 HPV IMMUNIZATION Completed 06/22/2015, , 10/01/2012 HEPATITIS C SCREENING Completed 06/07/2017 HIV SCREENING Completed 06/07/2017 HEPATITIS B IMMUNIZATION Completed 022, 02/16/1999, 1998, Additional history exists Pneumococcal Vaccine: Pediatrics (0 to 5 Years) and At-Risk Patients (6 to 49 Years) Aged Out No longer eligible based on patient's age to complete this topic Care Teams Steel Erector Relationship Specialty Start Date End Date [facility]- [address] [place] [address] PCP - General 06/25/23
[2024-05-16 18:35] VITALS: BP 107/74; PULSE 93; RESP 18; TEMP 36.6; O2SAT 98; BMI 23.2
--- NOTE | 2024-05-16 20:41 | CRLHL7_ITS ---
For Patients: As a result of the Cures Act, medical imaging exams and procedure reports are released immediately into your electronic medical record. You may view this report before your referring provider. If you have questions, please contact your health care provider. Indication: Cough, shortness of breath Technique: Two views of the chest Comparison: Chest radiograph performed 03/15/2024 Findings/Impression: No acute cardiopulmonary process detected. Dictated by Fareed Juarez MD @ 05/16/2024 9:22:25 PM (Electronically Signed)
--- NOTE | 2024-05-16 20:54 | ED_ITS ---
HPI - General Adult General Date Seen: 05/16/24 Chief complaint: Cough Stated complaint: blood in urine/stool Time Seen by Provider: 05/16/24 20:20 Source: patient Mode of arrival: ambulatory Limitations: no limitations History of Present Illness HPI narrative: Patient is a 24-year-old female who presents to the emergency department for evaluation of cough, abdominal pain. Patient reports that she has been sick with upper respiratory symptoms including intermittent fever, runny nose, and cough for the past 1 week. 6-year-old son is also sick with similar illnesses. Patient reports bloody streaked sputum tonight. Patient denies any chest pain. Patient reports history of similar symptoms in the past. Patient also reports some left lower quadrant abdominal pain that she has noticed some tenderness over the past few days as well as some constipation. Patient states she did take a laxative to try to help and was able to have a bowel movement but notes that it was painful and did notice a small amount of blood on the bowel movement. Patient also complains of dysuria, some blood in the urine, patient is currently on her menstrual cycle. Patient denies any nausea, vomiting. Denies any prolonged immobilization, lower extremity edema, calf tenderness. No other complaints. Related Data Home Medications ?Medication ?Instructions ?Recorded ?Confirmed levonorgestrel (Mirena) 1 device intrauterine ONCE 03/28/24 05/16/24 Previous Rx's ?Medication ?Instructions ?Recorded cholecalciferol (vitamin D3) 50 50 mcg PO QDAY 3 months #90 caps 01/08/24 mcg (2,000 unit) capsule escitalopram oxalate 20 mg tablet 20 mg PO DAILY #90 tabs 01/11/24 lisdexamfetamine 60 mg capsule 60 mg PO QAM #30 caps 03/28/24 (Vyvanse) lisdexamfetamine 60 mg capsule 60 mg PO QDAY #30 caps 03/28/24 (Vyvanse) dextroamphetamine-amphetamine 10 10 mg PO QDAY #30 tabs 04/22/24 mg tablet (Adderall) Allergies Allergy/AdvReac Type Severity Reaction Status Date / Time lurasidone (From Latuda) Allergy Mild groggy, Verified 05/16/24 18:39 fatigue Review of Systems Status of ROS: Reports: 10 or more systems reviewed and unremarkable except as noted in History and below [facility] Medical History Recurrent major depressive disorder ?F33.9 - Major depressive disorder, recurrent, unspecified (ICD-10) Generalized anxiety disorder ?F41.1 - Generalized anxiety disorder (ICD-10) Attention deficit hyperactivity disorder (ADHD), predominantly inattentive type ?F90.0 - Attention-deficit hyperactivity disorder, predominantly inattentive type (ICD-10) Acne ?L70.9 - Acne, unspecified (ICD-10) Surgical History History of hernia repair (05/2015) ?Z98.890 - Other specified postprocedural states (ICD-10) ?Z87.19 - Personal history of other diseases of the digestive system (ICD-10) Spontaneous vaginal delivery ?O80 - Encounter for full-term uncomplicated delivery (ICD-10) History of tonsillectomy and adenoidectomy (05/2001) ?Z90.89 - Acquired absence of other organs (ICD-10) Social History (Updated 03/28/24 @ 12:18 by Arlyn Ochoa ~ [facility], [facility]) Narrative: single, 1 son, [facility] [employer] student, works at [employer] non-smoker What is your current living situation?: I presently have a place to live Problems where you live: no known problems In the past 12 months, utilities in danger of being shut off: no In past 12 months, lack of transportation kept you from medical appts, meetings, work, or getting things needed for daily living: no In the past 12 mos, have been you worried that your food would run out before you had money to buy more?: never true In the past 12 mos, the food you bought just didn't last and you didn't have money to buy more?: never true Smoking Status: Never smoker Do you use any of these nicotine containing products: None How often do you have a drink containing alcohol: 2-3 times a week How many standard drinks containing alcohol do you have on a typical day: 1 or 2 AUDIT-C Alcohol total score: 3 Non-prescribed substance use: denies use Caffeine: Yes How often does anyone, including family, friends and others, physically hurt you : never How often does anyone, including family, friends and others, insult or talk down to you: never How often does anyone, including family, friends and others, threaten you with harm: never How often does anyone, including family, friends and others, scream or curse at you: never service: No Exam Narrative: Exam Narrative: General: Afebrile, no acute distress HEENT: Normocephalic, atraumatic, conjunctiva normal. MMM Neck: non-tender, supple Cardio: regular rate. regular rhythm Resp: Normal work of breathing, no respiratory distress, lungs clear bilaterally, no wheezing, rhonchi, rales Chest/Back: no visual signs of trauma, no midline tenderness, no CVA tenderness Abdomen: soft, non distension, no tenderness, no peritoneal signs; patient declined rectal exam Neuro: alert and fully oriented. CN II-XII grossly intact. Grossly normal strength and sensation in all extremities. MSK: no deformities. Normal range of motion, no lower extremity edema or calf tenderness Integumentary/Skin: no rash visualized, normal color Psych: normal affect, normal behavior Const: Vital Signs, click to edit/add: Vital Signs - 24 hr 05/16/24 18:35 Temperature 97.9 F Pulse Rate [Right Pulse Oximeter] 93 Respiratory Rate 18 Blood Pressure [Ri ght Upper Arm] 107/74 Pulse Oximetry 98 Oxygen Delivery Me thod Room Air Course Course ED Course: 24 yo female who presents to the ED for evaluation of cough, abdominal pain, constipation. Upon arrival patient is nontoxic appearing, afebrile, no distress. Patient with no tachycardia, no hypoxia, no respiratory distress. Differential diagnosis includes was not limited to viral illness versus bronchitis versus COVID versus pneumonia versus influenza versus constipation versus hemorrhoids versus anal fissure versus less likely intra-abdominal i nfection/diverticulitis. Upon arrival patient declined anything for the symptoms. Comprehensive labs, viral testing, chest x-ray performed. Comprehensive labs remarkable for white blood cell count of 8, hemoglobin 11.5 (previous levels 12.2, 11.8), no acute metabolic or electrolyte abnormality, AST mildly elevated at 43, normal lipase, urinalysis with no evidence of acute infection. Viral testing negative for COVID, influenza, RSV. I personally reviewed interpreted chest x-ray which is unremarkable with no focal infiltrate, pleural effusion, pneumothorax. Upon re-evaluation patient continues to be resting comfortably, no distress. Patient with no tachycardia, no hypoxia, no respiratory distress. No obvious evidence of acute infection on laboratory testing, or chest x-ray. Negative viral testing. Suspect likely viral illness. Patient's son has influenza B. at this time recommend continue supportive care. I did discuss with patient regarding her abdominal discomfort, constipation. No evidence of acute infection, abdomen is benign. Suspect likely secondary to constipation. Patient declined rectal examination in the emergency department. Patient does report hard stool with small amount of blood on the stool and toilet paper. Suspect likely fissure secondary to straining and hard stool. Recommend continue monitoring symptoms, stool softeners, and close outpatient follow-up with strict return precautions. The patient feels comfortable with discharge home and is agreeable to close outpatient follow-up with her primary care provider. Strict return precautions discussed if high fever, difficulty breathing, severe abdominal pain, bloody stools, or any worsening symptoms. Patient understands and agrees with the plan. Vital Signs Vital signs: Initial Vital Signs Temperature 97.9 F 05/16/24 18:35 Temperature Source Temporal Artery Scan 05/16/24 18:35 Pulse Rate 93 05/16/24 18:35 Pulse Rhythm Regular 05/16/24 18:35 Pulse Strength 3+ Normal 05/16/24 18:35 Respiratory Rate 18 05/16/24 18:35 Blood Pressure 107/74 05/16/24 18:35 Blood Pressure Mean 85 05/16/24 18:35 Blood Pressure Position Sitting 05/16/24 18:35 Pulse Oximetry 98 05/16/24 18:35 Oxygen Delivery Method Room Air 05/16/24 18:35 Vital Signs Temperature 97.9 F 05/16/24 18:35 Pulse Rate 93 05/16/24 18:35 Respiratory Rate 18 05/16/24 18:35 Blood Pressure 107/74 05/16/24 18:35 Pulse Oximetry 98 05/16/24 18:35 Oxygen Delivery Method Room Air 05/16/24 18:35 Temperature 97.9 F 05/16/24 18:35 Pulse Rate 93 05/16/24 18:35 Respiratory Rate 18 05/16/24 18:35 Blood Pressure 107/74 05/16/24 18:35 Pulse Oximetry 98 05/16/24 18:35 Oxygen Delivery Method Room Air 05/16/24 18:35 Medical Decision Making Lab Data Labs: Lab Results 05/16/24 05/16/24 05/16/24 Range/Units 20:28 20:50 21:00 WBC 8.06 (4.50-11.00) K/uL RBC 3.62 L (4.00-5.20) m/uL Hgb 11.5 L (12.0-16.0) gm/dL Hct 34.7 (33.0-51.0) % MCV 96 (80-100) fL MCH 32 (26-34) pg MCHC 33 (32-36) gm/dL RDW Coeff of Jovany 13.5 (11.5-15.5) % Plt Count 230 (140-440) K/uL Neut % (Auto) 60.4 (42.0-72.0) % Lymph % (Auto) 20.0 (20-44) % Will % (Auto) 13.5 H (0.0-11.0) % Eos % (Auto) 5.8 (0.0-7.0) % Baso % (Auto) 0.2 (0.0-3.0) % Neut # (Auto) 4.86 (1.7-7.0) K/uL Lymph # (Auto) 1.61 (0.90-2.90) K/uL Will # (Auto) 1.10 H (0.00-0.90) K/UL Eos # (Auto) 0.47 (0.00-0.50) K/uL Baso # (Auto) 0.02 (0.00-0.30) K/uL Abs Immat Gran (auto) 0.01 (0.00-0.30) K/uL Imm/Tot Granulo (auto) 0.1 % Sodium 138 (135-149) mmol/L Potassium 3.8 (3.6-5.1) mmol/L Chloride 104 (96-114) mmol/L Carbon Dioxide 28 (20-32) mmol/L Anion Gap 6 L (7-15) mEq/L BUN 8 (5-24) mg/dL Creatinine 0.6 (0.5-1.5) mg/dL Estimated Creat Clear 133.01 Estimated GFR 127 ml/min Glucose 88 (60-115) mg/dL Calcium 9.0 (8.4-10.6) mg/dL Total Bilirubin 0.5 (0.1-1.5) mg/dL AST 43 H (12-35) U/L ALT 28 (4-35) U/L Alkaline Phosphatase 105 (40-150) U/L Total Protein 7.0 (6.0-8.3) g/dL Albumin 4.2 (3.3-5.0) g/dL Lipase 36 (23-300) U/L Urine Color Yellow (Yellow) Urine Appearance Clear (Clear) Urine pH 6.0 (5.0-8.5) Ur Specific Beauty 1.020 (1.000-1.030) Urine Protein Negative (Negative) Urine Glucose (UA) Negative (Negative) Urine Ketones Negative (Negative) Urine Blood 2+ A (Negative) Urine Nitrite Negative (Negative) Urine Bilirubin Negative (Negative) Urine Urobilinogen 1.0 (0.2-1.0) Ur Leukocyte Esterase Negative (Negative) Urine RBC 5-10 A (0-2) Urine WBC 2-5 (0-5) Ur Squamous Epith Cells None (None-Few) Urine Bacteria None (None) Urine HCG, Qual Negative (Negative) SARS-CoV-2 (PCR) Negative SARS-CoV-2 (Negative) Influenza Type A (PCR) Negative PCR FLU A (Negative) Influenza Type B (PCR) Negative PCR FLU B (Negative) RSV (PCR) Negative PCR RSV (Negative) Discharge Plan Discharge Clinical Impression: Cough, Constipation Patient Disposition: Home, Self-Care Additional Instructions: Please follow-up with your primary care provider in the next 5-7 days for further evaluation and follow-up. Please call to schedule appointment. Please rest, drink plenty of fluid. Please alternate taking Tylenol and ibuprofen as needed for pain. Please take [id number] stool softener and or laxative 1- 2 times daily until you start having normal bowel movements. Please return to the emergency department if any worsening symptoms. It was a pleasure taking care of you today. We hope you feel better soon. Prescriptions: No Action Mirena 21 mcg/24hr (up to 8 yrs) 52 mg intrauterine device 1 device intrauterine ONCE Rx Instructions: as a single dose lisdexamfetamine [Vyvanse] 60 mg capsule 60 mg PO QDAY Qty: 30 0RF lisdexamfetamine [Vyvanse] 60 mg capsule 60 mg PO QAM Qty: 30 0RF cholecalciferol (vitamin D3) 50 mcg (2,000 unit) capsule 50 mcg PO QDAY 90 Days Qty: 90 1RF escitalopram oxalate 20 mg tablet 20 mg PO DAILY Qty: 90 1RF dextroamphetamine-amphetamine [Adderall] 10 mg tablet 10 mg PO QDAY Qty: 30 0RF Follow Up/Referrals: Luis E Harmon MD [Primary Care Provider] - Stand Alone Forms: [employer] Info Instructions
[2024-05-16 20:58] LABS: Basophils Absolute Auto 0.02 K/uL (0.00-0.30); Basophils Percent Auto 0.2 % (0.0-3.0); Eosinophils Absolute Auto 0.47 K/uL (0.00-0.50); Eosinophils Percent Auto 5.8 % (0.0-7.0); Hematocrit 34.7 % (33.0-51.0); Hemoglobin* 11.5 gm/dL (12.0-16.0); Immature Granulocytes Abs Auto 0.01 K/uL (0.00-0.30); Immature Granulocytes Pct Auto 0.1 %; Lymphocytes Absolute Auto 1.61 K/uL (0.90-2.90); Mean Corpuscular HGB Conc 33 gm/dL (32-36); Mean Corpuscular Hemoglobin 32 pg (26-34); Mean Corpuscular Volume 96 fL (80-100); Monocytes Percent Auto 13.5 % (0.0-11.0); Neutrophils Absolute Auto 4.86 K/uL (1.7-7.0); Neutrophils Percent Auto 60.4 % (42.0-72.0); Platelet Count* 230 K/uL (140-440); RDW Coefficient of Variation % 13.5 % (11.5-15.5); Red Blood Count 3.62 m/uL (4.00-5.20); White Blood Count* 8.06 K/uL (4.50-11.00)
--- OUTSIDE RECORDS SUMMARY | 2024-05-16 21:06 | XMS_ITS | Clinical Summary ---
Author Organization [facility] Address [address] [place] [address] Care Team Providers Care Bus Van Driver Name Role Phone [facility]- Primary Care Provider Allergies No known active allergies Medications escitalopram (LEXAPRO) 20 MG tablet Take 1 tablet by mouth daily. 01/11/2024 Active lisdexamfetamine (VYVANSE) 60 MG capsule Take 60 mg by mouth. 01/03/2024 Active Cholecalciferol (VITAMIN D3) 50 MCG (1999 UT) CAPS Take 2,000 Units by mouth. 01/08/2024 Active Encounters Date Type Department Care Team Description 02/18/2024 2:15 PM CONSTRUCTION ANALYST Office Visit [facility] [address] [place] [address] Shantal Burrell PA-C Cellulitis of left foot (Primary Dx) 02/18/2024 Travel from Last 3 Months Immunizations Name Administration Dates Next Due DTAP (<7y) 10/22/2003, 3,1998,06/19,1998 [id number] Novel Flu 01/28/2009 HIB, Unspecified 09/18/2002, 9,1998,04/06 [...] on file Legal Sex Female 4:02 AM CONSTRUCTION ANALYST Gender Identity Not on file Sexual Orientation Not on file Last Filed Vital Signs Vital Sign Reading Time Taken Comments Blood Pressure 128/84 02/18/2024 2:24 PM CONSTRUCTION ANALYST Pulse 93 02/18/2024 2:24 PM CONSTRUCTION ANALYST Temperature 36.6 C (97.8 F) 02/18/2024 2:24 PM CONSTRUCTION ANALYST Respiratory Rate 16 02/18/2024 2:24 PM CONSTRUCTION ANALYST Oxygen Saturation 100% 02/18/2024 2:24 PM CONSTRUCTION ANALYST Inhaled Oxygen Concentration - - Weight 73.5 kg (162 lb) 02/18/2024 2:24 PM CONSTRUCTION ANALYST Height 167.6 cm (5' 6) 06/25/2023 8:25 [...] age to complete this topic Care Teams Bus Van Driver Relationship Specialty Start Date End Date [facility]- [address] [place] [address] PCP - General 06/25/23
--- OUTSIDE RECORDS SUMMARY | 2024-05-16 21:06 | XMS_ITS | Clinical Summary ---
Author Organization [facility] Address [address] [place] [address] Care Team Providers Care Derrick Boat Leverman Name Role Phone YoselintrinaAlysha padilla Unavailable Unavailable [...] times daily. 14 Tablet 4 10:55 AM BULLET CASTING OPERATOR 04/10/19 24 Active gentamicin (GENOPTIC) 0.3 % ophthalmic solution Place 2 Drops into both eyes four times daily until clear x 48 hours 5 mL 4 10:55 AM BULLET CASTING OPERATOR 04/10/19 24 Active fluconazole (DIFLUCAN) 150 mg [...] 4 4:19 PM CDT 10/05/19 24 Active cholecalciferol (VITAMIN D3) 2,000 unit capsule Take 1 Capsule (2,000 units) by mouth once daily. 90 Capsule 1 4 11:00 AM BULLET CASTING OPERATOR 01/08/20 24 Active escitalopram oxalate (LEXAPRO) 20 mg tablet Take 1 Tablet (20 mg) by mouth once daily. 90 Tablet 1 4 11:00 AM BULLET CASTING OPERATOR 01/11/20 24 Active lisdexamfetamine (VYVANSE) 60 mg capsule Take 1 Capsule (60 mg) by mouth once daily in the morning. 30 Capsule 02/05/20 24 Active lisdexamfetamine (VYVANSE) 60 mg capsule 60 mg orally every morning 30 Capsule 02/26/20 24 Active lisdexamfetamine (VYVANSE) 60 mg capsule Take 1 Capsule (60 mg) by mouth once daily. 30 Capsule 5 3:39 PM BULLET CASTING OPERATOR 03/26/19 25 Active amoxicillin 875 mg tablet Take 1 Tablet (875 mg) by mouth two times daily. 20 Tablet 03/28/19 25 Active lisdexamfetamine (VYVANSE) 60 mg capsule Take 1 Capsule (60 mg) by mouth once daily in the morning. 30 Capsule 5 11:02 AM CDT 04/11/19 25 Active lisdexamfetamine (VYVANSE) 60 mg capsule Take 1 Capsule (60 mg) by mouth once daily in the morning. 30 Capsule 05/10/19 25 Active dextroamphetamine- amphetamine (ADDERALL) 10 mg tablet Take 1 Tablet (10 mg) by mouth once daily. 30 Tablet 5 1:25 PM BULLET CASTING OPERATOR 04/22/19 25 Active dextroamphetamine- amphetamine (ADDERALL) 10 mg tablet Take 1 Tablet (10 mg) by mouth once daily. 30 Tablet 5 3:28 PM BULLET CASTING OPERATOR 03/26/19 25 025 Discontin ued(Reord er (E-cancel not sent)) Active [...] No active medical problems 11/29/2010 1 Immunizations Immunization Administration Dates Next Due DTaP 10/22/2003, 3,1998,06/19,1998 [...] on file Legal Sex Female 5:48 AM BULLET CASTING OPERATOR Gender Identity Not on file Sexual Orientation [...] series ( season) 2023 04/27/2021, 04/06/2021 Influenza Vaccine (#1) 2023 2, 12/01/2017, 12/24/2014, Additional history exists Pap [...] Procedure Name Priority Date/Time Associated Diagnosis Comments BOWLING BALL FINISHER THIN PREP PAP SCREEN IMAGED Routine 06/30/2023 9:24 AM CDT ANTI HIV 1/2 Routine 06/07/2017 8:44 AM CDT Encounter for supervision of normal first in first trimester (HC) ANTI HCV Routine 06/07/2017 8:44 AM CDT Encounter for supervision of normal first in first trimester (HC) from Last 3 Months or Most Recently Relevant to Health Maintenance Results * BOWLING BALL FINISHER THIN PREP PAP SCREEN IMAGED (06/30/2023 9:24 AM CDT) Case Report Gynecologic Cytology Report Case: [id number] Authorizing Provider: Shanon Gan NP Collected: 06/30/2023 0924 Ordering Location: [facility] Received: 07/03/2023 1017 First Screen: Patrice Hoang Rescreen: Danni Thakur Specimen: BOWLING BALL FINISHER ThinPrep Vial Screening, Cervical 07/14/2023 10:08 AM CDT [facility] INTERPRETATION/ RESULT NEGATIVE FOR INTRAEPITHELIAL LESION OR MALIGNANCY (NIL) (none) 07/14/2023 10:08 AM CDT [facility] IMEN ADEQUACY Satisfactory for evaluation Endocervical component present 07/14/2023 10:08 AM CDT [facility] HPV REQUEST HPV and PAP 07/14/2023 10:08 AM CDT [facility] Date of LMP 06/25/2023 07/14/2023 10:08 AM CDT [facility] Last Pap Date 07/26/2022 07/14/2023 10:08 AM CDT [facility] Last Pap Result LSIL 10:08 AM CDT [facility] Abnormal Pap or [place] Bx in last 5 years Yes 07/14/2023 10:08 AM CDT [facility] [place] Bx Done Today No 07/14/2023 10:08 AM CDT [facility] Additional Information 07/14/2023 10:08 AM CDT [facility] Comment: Interpreted at [facility] - [address], [place] [address] Automated Review Successful 07/14/2023 10:08 AM T [facility] Comment:Specimen processed s uccessfully by automated service officer device, ThinPrep Imaging System, [employer] ANCILLARY TESTING BOWLING BALL FINISHER HPV Ordered, Please see separate report 07/14/2023 10:08 AM CDT [facility] Note The pap test is [...] and malignant lesions. 07/14/2023 10:08 AM CDT [facility] Other (Cervical) 06/30/2023 9:24 AM CDT 07/03/2023 10:17 AM CDT Shanon Gan NP PATHOLOGY/CYTOLOGY Final Result [facility] [address] * ANTI HCV (06/07/2017 8:44 AM CDT) HEPATITIS C ANTIBODY Non-React norberto Non-React norberto 06/07/2017 4:03 PM CDT [facility] [employer] [facility] Comment:Antibodies to HCV no t detected; does not exclude the possibility of exposure to HCV. Blood BLOOD SPECIMEN / Unknown Venipuncture / Unknown 06/07/2017 8:44 AM CDT 06/07/2017 8:45 AM CDT Jasmyn BRITT SEND OUTS Final R esult [facility] [address] * ANTI HIV 1/2 (06/07/2017 8:44 AM CDT) HIV-1/HIV-2 ANTIBODY Non-Reacti ve Non-Reacti ve 06/07/2017 3:59 PM CDT [facility] Comment:HIV-1 p24 and HIV-1/ HIV-2 Ab not detected. Blood BLOOD SPECIMEN / Unknown Venipuncture / Unknown 06/07/2017 8:44 AM CDT 06/07/2017 8:45 AM CDT Jasmyn BRITT SEND OUTS Final R esult [facility] [address] from Last 3 Months or Most Recently Relevant to Health Maintenance Insurance [facility] Care Teams Derrick Boat Leverman Relationship Specialty Start Date End Date Luis E Harmon MD [address] [place] [id number] PCP - General Family Practice 12/06/21 [facility] 06/08/11
[2024-05-16 21:08] LABS: Slide Review Reflex No
[2024-05-16 21:10] LABS: Appearance Urine Clear (Clear); Bilirubin Urine Negative (Negative); Blood Urine 2+ (Negative); Color Urine Yellow (Yellow); Glucose Urine Negative (Negative); Ketones Urine Negative (Negative); Leukocyte Esterase Urine Negative (Negative); Nitrite Urine Negative (Negative); Protein Urine Negative (Negative)
[2024-05-16 21:12] LABS: Albumin* 4.2 g/dL (3.3-5.0); Chloride* 104 mmol/L (96-114); Potassium* 3.8 mmol/L (3.6-5.1); Sodium* 138 mmol/L (135-149)
[2024-05-16 21:12] LABS: PCR FLU A Negative PCR FLU A (Negative); PCR FLU B Negative PCR FLU B (Negative); PCR RSV Negative PCR RSV (Negative); SARS PCR* Negative SARS-CoV-2 (Negative)
[2024-05-16 21:13] LABS: Ur HCG Qualitative* Negative (Negative)
[2024-05-16 21:15] LABS: Alanine Aminotransferase* 28 U/L (4-35); Alkaline Phosphatase* 105 U/L (40-150); Anion Gap 6 mEq/L (7-15); Aspartate Amino Transferase* 43 U/L (12-35); Bilirubin Total* 0.5 mg/dL (0.1-1.5); Blood Urea Nitrogen* 8 mg/dL (5-24); Carbon Dioxide* 28 mmol/L (20-32); Creatinine* 0.6 mg/dL (0.5-1.5); Est. Creatinine Clearance* 133.01; Estimated Glomerular Filt Rate 127 ml/min; Glucose* 88 mg/dL (60-115); Lipase* 36 U/L (23-300)
== END 2024-05-16 22:06 | disposition home or self-care (01) ==
PROVIDERS: Family Medicine; Emergency Provider Emergency Medicine; PCP Family Medicine
DX: R05.9 Cough, unspecified (principal); K59.00 Constipation, unspecified
CPT/HCPCS: 36415; 71046; 80053; 81001; 81025; 83690; 85025; 87631; 99283; 99285

== ENCOUNTER 2024-08-07 20:13 | Emergency (ER) | payer BC, SELFPAY ==
--- OUTSIDE RECORDS SUMMARY | 2024-08-07 20:15 | XMS_ITS | Clinical Summary ---
Author Organization [facility] Address [address] [place] [address] Care Team Providers Care Palliative Care Specialist Name Role Phone [facility]- Primary Care Provider Allergies No known active allergies Medications escitalopram (LEXAPRO) 20 MG tablet Take 1 tablet by mouth daily. 01/11/2024 Active lisdexamfetamine (VYVANSE) 60 MG capsule Take 60 mg by mouth. 01/03/2024 Active Cholecalciferol (VITAMIN D3) 50 MCG (1999 UT) CAPS Take 2,000 Units by mouth. 01/08/2024 Active Immunizations Immunization Administration Dates Next Due DTAP (<7y) 10/22/2003, 3,1998,06/19,1998 [id number] Novel Flu 01/28/2009 HIB, Unspecified 09/18/2002, 9,1998,04/06 [...] on file Legal Sex Female 4:02 AM FINANCIAL SERVICES AUDITOR Gender Identity Not on file Sexual Orientation Not on file Last Filed Vital Signs Vital Sign Reading Time Taken Comments Blood Pressure 128/84 02/18/2024 2:24 PM FINANCIAL SERVICES AUDITOR Pulse 93 02/18/2024 2:24 PM FINANCIAL SERVICES AUDITOR Temperature 36.6 C (97.8 F) 02/18/2024 2:24 PM FINANCIAL SERVICES AUDITOR Respiratory Rate 16 02/18/2024 2:24 PM FINANCIAL SERVICES AUDITOR Oxygen Saturation 100% 02/18/2024 2:24 PM FINANCIAL SERVICES AUDITOR Inhaled Oxygen Concentration - - Weight 73.5 kg (162 lb) 02/18/2024 2:24 PM FINANCIAL SERVICES AUDITOR Height 167.6 cm (5' 6) 06/25/2023 8:25 AM CDT Body Mass Index 26.15 06/25/2023 8:25 AM CDT Plan of Treatment Health Maintenance Due Date Last Done Comments ADVANCE CARE PLANNING 1998 ANNUAL REVIEW OF HM ORDERS 1998 YEARLY PREVENTIVE VISIT 2001 COVID-19 VACCINE ( season) 2023 04/27/2021, 04/06/2021 PHQ-2 (once per calendar year) 2024 INFLUENZA VACCINE (Season Ended) 2024 04/07/2021, 12/01/2017, 12/24/2014, Additional history exists PAP 06/29/2026 06/30/2023, 07/26/2022 DTAP/TDAP/TD VACCINE (8 - Td or Tdap) 11/18/2027 11/17/2017, 11/06/2009, 10/22/2003, Additional history exists ZOSTER VACCINE (1 of 2) 01/21/2048 MENINGITIS VACCINE Completed 09/25/2014 HPV VACCINE Completed 06/22/2015, 08/29, 10/01/2012 HEPATITIS C SCREENING Completed 06/07/2017 HIV SCREENING Completed 06/07/2017 HEPATITIS B VACCINE Completed 04/07/2021, 02/16/1999, 1998, Additional history exists PNEUMOCOCCAL VACCINE: PEDIATRICS (0 to 5 YEARS) AND AT-RISK PATIENTS (6 to 49 YEARS) Aged Out No longer eligible based on patient's age to complete this topic Insurance [place] Care Teams Palliative Care Specialist Relationship Specialty Start Date End Date [facility]- [address] [place] [address] [facility] - General 06/25/23
--- OUTSIDE RECORDS SUMMARY | 2024-08-07 20:15 | XMS_ITS | Clinical Summary ---
Author Organization [facility] Address [address] [place] [id number] Care Team Providers Care Automation Technologist Name Role Phone Alysha Rogers Unavailable Unavailable [...] times daily. 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 90 Capsule 1 5 2:20 PM CDT 01/08/20 24 Active escitalopram oxalate 20 mg tablet Take 1 Tablet (20 mg) by mouth once daily. 90 Tablet 1 5 10:50 AM CDT 01/11/20 24 Active amoxicillin 875 mg tablet Take 1 Tablet (875 mg) by mouth two times daily. 20 Tablet 03/28/19 25 Active dextroamphetamine- amphetamine 10 mg tablet Take 1 Tablet (10 mg) by mouth once daily. 30 Tablet 5 11:28 AM CDT 07/17/19 25 Active cyclobenzaprine 5 mg tablet Take 1 Tablet (5 mg) by mouth 2 times daily if needed for muscle spasm. 30 Tablet 5 12:32 PM CDT 07/26/19 25 Active methylphenidate 54 mg extended-release tablet Take 1 Tablet (54 mg) by mouth once daily in the morning. 30 Tablet 5 12:32 PM CDT 07/26/19 25 Active naproxen 500 mg tablet Take 1 Tablet (500 mg) by mouth two times daily. 60 Tablet 1 5 12:32 PM CDT 07/26/19 25 Active lisdexamfetamine 60 mg capsule Take 1 Capsule (60 mg) by mouth once daily. 30 Capsule 5 2:20 PM CDT 08/01/19 25 Active lisdexamfetamine 60 mg capsule Take 1 Capsule (60 mg) by mouth once daily in the morning. 30 Capsule 5 10:50 AM CDT 02/05/20 24 025 Discontin ued(*Medi cation adjustmen t) lisdexamfetamine (VYVANSE) 60 mg capsule 60 mg orally every morning 30 Capsule 02/26/20 24 025 Discontin ued(*Medi cation adjustmen t) lisdexamfetamine (VYVANSE) 60 mg capsule Take 1 Capsule (60 mg) by mouth once daily. 30 Capsule 5 3:39 PM AIRCRAFT ASSEMBLER 03/26/19 25 025 Discontin ued(*Medi cation adjustmen t) lisdexamfetamine (VYVANSE) 60 mg capsule Take 1 Capsule (60 mg) by mouth once daily in the morning. 30 Capsule 5 11:02 AM CDT 04/11/19 25 025 Discontin ued(*Medi cation adjustmen t) lisdexamfetamine (VYVANSE) 60 mg capsule Take 1 Capsule (60 mg) by mouth once daily in the morning. 30 Capsule 05/10/19 25 025 Discontin ued(*Medi cation adjustmen t) lisdexamfetamine 60 mg capsule Take 1 Capsule (60 mg) by mouth once daily. 30 Capsule 5 10:05 AM CDT 06/04/19 25 025 Discontin ued(*Medi cation adjustmen t) lisdexamfetamine 60 mg capsule Take 1 Capsule (60 mg) by mouth once daily in the morning. 30 Capsule 07/04/19 25 025 Discontin ued(*Medi cation adjustmen t) dextroamphetamine- amphetamine 10 mg tablet Take 1 Tablet (10 mg) by mouth once daily. 30 Tablet 5 9:24 AM CDT 06/15/19 25 025 Discontin ued(Reord er (E-cancel not [...] Encounters Date Type Department Care Team Description 08/07/2024 Nurse Triage [address] [place] [address] Luis E Harmon MD Skin Problem 08/07/2024 Nurse Triage [facility] [address] [place] [address] Luis E Harmon MD Questions 07/10/2024 10:54 AM CDT - 07/10/2024 1:06 PM CDT Emergency [facility] [address] [place] [address] Judit Conley PA Constipation, unspecified constipation type (Primary Dx) Discharge Disposition: Home Self Care 07/10/2024 Travel 07/01/2024 Patient Outreach [facility] Care Management - Advanced Care Team [address] [place] [address] [facility] 06/11/2024 1:20 PM CDT Office Visit [facility] [address] [place] [address] Jennifer Gomez PA Constipation 06/11/2024 Travel from Last 3 Months Immunizations Immunization Administration Dates Next Due DTaP [...] 0 12/06/2021 Social Connections Answer Date Recorded Do you often feel lonely or isolated from those around you? 4 07/01/2024 Financial Resource Strain Answer Date R ecorded Difficulty of Paying Living Expenses 3 06/11/2024 Difficulty of Paying Living Expenses Not on file 06/11/2024 Food Insecurity Answer Date Recorded Do you worry your food will run out before you are able to buy more? 1 07/01/2024 Transportation Needs Answer Date Record ed Does lack of transportation keep you from medica l appointments? 1 07/01/2024 Does lack of transportation keep you from work, meetings or getting things that you need? 1 07/01/2024 Housing Stability Answer Date Recorded What is your housing situation today? 1 07/01/2024 Interpersonal Safety Answer Date Record ed Are you being hit, kicked, p ushed or yelled at (see row info)? No 07/10/2024 Interpersonal Safety Abuse 12 - 18 Not on file 07/10/2024 Interpersonal Safety Ambulatory Vulnerability No t on file 07/10/2024 Utilities Answer Date Recorded Do you have trouble paying f or utilities (for example, heat, electricity, water, phone)? 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 Gender Identity Not on file Sexual Orientation [...] Sign Reading Time Taken Comments Blood Pressure 93/50 07/10/2024 1:04 PM CDT Pulse 78 07/10/2024 1:04 PM CDT Temperature 36.8 C (98.3 F) 07/10/2024 11:03 AM CDT Respiratory Rate 16 07/10/2024 11:03 AM CDT Oxygen Saturation 96% 07/10/2024 1:04 PM CDT Inhaled Oxygen Concentration - - Weight 77.1 kg (170 lb) 07/10/2024 11:05 AM CDT Height 167.6 cm (5' 6) 07/10/2024 11:05 AM CDT Body Mass Index 27.44 07/10/2024 11:05 AM CDT Plan of Treatment Health Maintenance Due Date Last Done Comments BMI (ht and wt on same day) for age 18+ 12/06/2022 12/06/2021, 06/07/2017, 05/23/2017, Additional history exists Depression screening for age 12+ 12/06/2022 12/06/2021, 05/23/2017, 12/29/2016, Additional history exists COVID-19 vaccine series ( season) 2023 04/27/2021, 04/06/2021 Pap test for age 21-65 06/29/2024 , 06/30/2023, 07/26/2022, Additional history exists Influenza Vaccine (Season Ended) 2024 04/07/2021, 12/01/2017, 12/24/2014, Additional history exists Tetanus booster 11/18/2027 11/17/2017, 11/06/2009 HPV series for age 9-26 Completed 06/22/19 16, 09/25/2014, 10/01/2012 HIV for age 15-65 Completed 06/07/2017 Hepatitis C screening for age 18-79 Completed 06/07/2017 Tdap Completed 11/17/2017, 11/06/2009 Hepatitis B series for 19+ Completed 04/07, 02/16/1999, 02/16/1999, Additional history exists Pneumococcal series for age 6-49 Aged Out No longer eligible based on patient's age to complete this topic Procedures Procedure Name Priority Date/Time Associated Diagnosis Comments CT ABDOMEN PELVIS W STAT 07/10/2024 1 1:54 AM CDT CBC WITH AUTO DIFFERENTIAL STAT 07/10/2024 11:40 AM CDT LIPASE STAT 07/10/2024 11:40 AM CDT COMP METABOLIC PANEL STAT 07/10/2024 11:40 AM CDT CBC WITH AUTO DIFFERENTIAL STAT 07/10/2024 11:40 AM CDT URINALYSIS MICROSCOPIC STAT 07/10/2024 11:37 AM CDT URINE STAT 07/10/2024 11:37 AM CDT UA W/ SEDIMENT EXAM REFLEXED PER CRITERIA STAT 07/10/2024 11:37 AM CDT FARM SERVICE ADVISER THIN PREP PAP SCREEN IMAGED Routine 06/30/2023 9:24 AM CDT ANTI HIV 1/2 Routine 06/07/2017 8:44 AM CDT Encounter for supervision of normal first in first trimester (HC) ANTI HCV Routine 06/07/2017 8:44 AM CDT Encounter for supervision of normal first in first trimester (HC) from Last 3 Months or Most Recently Relevant to Health Maintenance Results * CT ABDOMEN PELVIS W (07/10/2024 11:54 AM CDT) Anatomical Region Laterality Modality Abdomen, Pelvis, AORTA, LIVER, SPLEEN Computed Tomography 07/10/2024 12:1 1 PM CDT Impressions 07/10/2024 12:11 PM CDT 1. No acute appearing finding seen in the abdomen or pelvis. 2. There is mild bilaterally symmetric fullness of the upper collecting systems which may be physiologic. 3. Physiologic appearance of both ovaries including a small cyst or dominant follicle on the left. 4. Moderate stool burden. Normal appendix. Please note that all CT scans at this facility use dose modulation, iterative reconstruction, and/or weight-based dosing when appropriate to reduce radiation dose to as low as reasonably achievable. Dictated by Francie Gross MD @ 07/10/2024 12:11:25 PM (Electronically Signed) Narrative 07/10/2024 12:11 PM CDT For Patients: As a result of the Cures Act, medical imaging exams and procedure reports are released immediately into your electronic medical record. You may view this report before your referring provider. If you have questions, please contact your health care provider. INDICATION: Right lower quadrant pain. COMPARISON: None. TECHNIQUE: CT of the abdomen and pelvis with intravenous contrast. Multiplanar axial, coronal, and sagittal reformats were reconstructed. Contrast: 100 mL Omnipaque 300. FINDINGS: Lung bases: Normal. Liver: Normal. No mass. Gallbladder and bile ducts: Normal gallbladder. No bile duct dilation. Pancreas: Normal. Spleen: Normal. Adrenal glands: Normal. Kidneys: Normal renal size and position. Normal renal parenchyma enhancement. No cyst or solid mass. No calculi. Mild bilateral pelviectasis and proximal ureterectasis. Urinary bladder: Normal. Pelvis: The uterus is retroverted. An IUD appears to be normally positioned. There is a 1.8 centimeter left ovarian cyst. Otherwise physiologic appearance of both ovaries for a patient this age. Vessels: Normal. Bowel: No dilated or inflamed bowel. Normal appendix. Moderate stool burden. Lymph nodes: No adenopathy. Peritoneum: No ascites. Abdominal wall: No bowel containing hernia. No abdominal wall mass. Postoperative lower abdominal wall repair. Bones: No fractures. No focal worrisome bone lesions. Procedure Note Francie Gross MD - 07/10/2024 For Patients: As a result of the Cures Act, medical imagingexams and procedure reports are released immediately into your electronicmedical record. You may view this report before your referring provider.If you have questions, please contact your health care provider. INDICATION: Right lower quadrant pain. COMPARISON: None. TECHNIQUE: CT of the abdomen and pelvis with intravenous contrast. Multiplanar axial,coronal, and sagittal reformats were reconstructed. Contrast: 100 mL Omnipaque 300. FINDINGS: Lung bases: Normal. Liver: Normal. No mass. Gallbladder and bile ducts: Normal gallbladder. No bile duct dilation. Pancreas: Normal. Spleen: Normal. Adrenal glands: Normal. Kidneys: Normal renal size and position. Normal renal parenchymaenhancement. No cyst or solid mass. No calculi. Mild bilateralpelviectasis and proximal ureterectasis. Urinary bladder: Normal. Pelvis: The uterus is retroverted. An IUD appears to be normallypositioned. There is a 1.8 centimeter left ovarian cyst. Otherwisephysiologic appearance of both ovaries for a patient this age. Vessels: Normal. Bowel: No dilated or inflamed bowel. Normal appendix. Moderate stoolburden. Lymph nodes: No adenopathy. Peritoneum: No ascites. Abdominal wall: No bowel containing hernia. No abdominal wall mass.Postoperative lower abdominal wall repair. Bones: No fractures. No focal worrisome bone lesions. IMPRESSION: 1. No acute appearing finding seen in the abdomen or pelvis. 2. There is mild bilaterally symmetric fullness of the upper collectingsystems which may be physiologic. 3. Physiologic appearance of both ovaries including a small cyst ordominant follicle on the left. 4. Moderate stool burden. Normal appendix. Please note that all CT scans at this facility use dose modulation,iterative reconstruction, and/or weight-based dosing when appropriate toreduce radiation dose to as low as reasonably achievable. Dictated by Francie Gross MD @ 07/10/2024 12:11:25 PM (Electronically Signed) us Judit BRITT CT Final R esult * (ABNORMAL) CBC WITH AUTO DIFFERENTIAL (07/10/2024 11:40 AM CDT) WHITE BLOOD COUNT 12.4(H) 4.5 - 11.0 thou/cu mm 07/10/2024 11:47 AM CDT [facility] RED BLOOD COUNT 3.95(L) 4.00 - 5.20 mil/cu mm 07/10/2024 11:47 AM [facility] HEMOGLOBIN 12.1 12.0 - 16.0 g/dL 07/10/2024 11:47 AM [facility] HEMATOCRIT 36.5 33.0 - 51.0 % 07/10/2024 11:47 AM [facility] MCV 92 80 - 100 fL 07/10/2024 11:47 AM [facility] MCH 30.6 26.0 - 34.0 pg 07/10/2024 11:47 AM [facility] MCHC 33.2 32.0 - 36.0 g/dL 07/10/2024 11:47 AM [facility] RDW 13.8 11.5 - 15.5 % 07/10/2024 11:47 AM [facility] PLATELET COUNT 291 140 - 440 thou/cu mm 07/10/2024 11:47 AM [facility] MPV 9.7 6.5 - 11.0 fL 07/10/2024 11:47 AM [facility] % NEUT 63.7 % 07/10/2024 11:47 AM [facility] % LYMPH 20.2 % 07/10/2024 11:47 AM [facility] % MONO 12.6 % 07/10/2024 11:47 AM [facility] % EOS 3.3 % 07/10/2024 11:47 AM [facility] % BASO 0.2 % 07/10/2024 11:47 AM [facility] ABSOLUTE NEUTROPHILS 7.9(H) 1.7 - 7.0 thou/cu mm 07/10/2024 11:47 AM [facility] ABSOLUTE LYMPHOCYTES 2.5 0.9 - 2.9 thou/cu mm 07/10/2024 11:47 AM [facility] ABSOLUTE MONOCYTES 1.6(H) <0.9 thou/cu mm 07/10/2024 11:47 AM [facility] ABSOLUTE EOSINOPHILS 0.4 <0.5 thou/cu mm 07/10/2024 11:47 AM CDT [facility] ABSOLUTE BASOPHILS 0.0 <0.3 thou/cu mm 07/10/2024 11:47 AM T [facility] Blood BLOOD SPECIMEN / Unknown IV Start / Unknown 07/10/2024 11:40 AM CDT 07/10/2024 11:43 AM CDT Judit BRITT HEMATOLOGY Final R esult Performing Organization Address [facility]/ZIP Co de Phone Number [facility] [address] [place] [address] * LIPASE (07/10/2024 11:40 AM CDT) Pathologist [facility] [place] LIPASE 17.9 13.0 - 60.0 IU/L 07/10/2024 12:08 PM T [facility] Blood BLOOD SPECIMEN / Unknown IV Start / Unknown 07/10/2024 11:40 AM CDT 07/10/2024 11:43 AM CDT Judit BRITT CHEMISTRY Final R [facility] Performing Organization Address [facility] Co de Phone Number [facility] [address] [place] [address] * (ABNORMAL) COMP METABOLIC PANEL (07/10/2024 11:40 AM CDT) SODIUM 136 136 - 145 mmol/L 07/10/2024 12:08 PM [facility] POTASSIUM 3.2(L) 3.5 - 5.1 mmol/L 07/10/2024 12:08 PM [facility] CHLORIDE 101 98 - 107 mmol/L 07/10/2024 12:08 PM T [facility] CO2,TOTAL 23 22 - 29 mmol/L 07/10/2024 12:08 PM [facility] ANION GAP 12 5 - 18 07/10/2024 12:08 PM [facility] GLUCOSE 88 70 - 99 mg/dL 07/10/2024 12:08 PM [facility] CALCIUM 9.6 8.8 - 10.4 mg/dL 07/10/2024 12:08 PM [facility] Comment: Reference ranges for this test were updated on 01/02/2024 to reflect our healthy population more accurately. Reference range changes are not retroactively applied to results, but previous results using the same methodology can be interpreted in the context of the new reference range. BUN 7 6 - 20 mg/dL 07/10/2024 12:08 PM [facility] CREATININE 0.67 0.50 - 0.90 mg/dL 07/10/2024 12:08 PM [facility] BUN/CREAT RATIO 10 10 - 20 12:08 PM [facility] eGFR >90 >90 mL/min/1. 73m2 07/10/2024 12:08 PM [facility] Comment:As of 2021, eG FR is calculated by the CKD-EPI creatinine equation without race adjustment. eGFR can be influenced by muscle mass, exercise, and diet. The reported eGFR is an estimation only and is only applicable if the renal function is stable. ALBUMIN 4.9 4.0 - 4.9 g/dL 07/10/2024 12:08 PM [facility] PROTEIN,TOTAL 7.6 6.0 - 8.0 g/dL 07/10/2024 12:08 PM [facility] BILIRUBIN,TOTAL 0.5 0.0 - 1.2 mg/dL 07/10/2024 12:08 PM [facility] ALK PHOSPHATASE 87 35 - 104 IU/L 07/10/2024 12:08 PM [facility] ALT (SGPT) 28 10 - 35 IU/L 07/10/2024 12:08 PM [facility] AST (SGOT) 49(H) 10 - 35 IU/L 07/10/2024 12:08 PM [facility] Blood BLOOD SPECIMEN / Unknown IV Start / Unknown 07/10/2024 11:40 AM CDT 07/10/2024 11:43 AM CDT Judit BRITT CHEMISTRY Final R esult Performing Organization Address City/[facility]/ZIP Co de Phone Number [facility] [address] [place] [address] * URINALYSIS MICROSCOPIC (07/10/2024 11:37 AM CDT) RBC 0-2 0-2, None Seen /HPF 07/10/2024 12:02 PM CDT [facility] WBC None Seen 0-2, 3-5, None Seen /HPF 07/10/2024 12:02 PM T [facility] BACTERIA Rare None Seen, Rare, Few Bacteria/ HPF 07/10/2024 12:02 PM T [facility] EPITHELIAL CELLS Few None Seen, Few Epi/HPF 07/10/2024 12:02 PM T [facility] Urine URINE SPECIMEN / Unknown Non-Blood / Unknown 07/10/2024 11:37 AM CDT 07/10/2024 11:41 AM CDT Judit BRITT URINE Final R [facility] Performing Organization Address [facility] Co de Phone Number [facility] [address] [place] [address] * (ABNORMAL) UA W/ SEDIMENT EXAM REFLEXED PER CRITERIA (07/10/2024 11:37 AM CDT) COLOR Yellow Yellow Color 07/10/2024 11:47 AM CDT [facility] CLARITY Clear Clear Clarity 07/10/2024 11:47 AM CDT [facility] SPECIFIC GRAVITY,URINE <=1.005(A) 1.010, 1.015, 1.020, 1.025 07/10/2024 11:47 AM CDT [facility] PH,URINE 6.5 6.0, 7.0, 8.0, 5.5, 6.5, 7.5, 8.5 07/10/2024 11:47 AM T [facility] UROBILINOGEN, QUALITATIVE Normal Normal EU/dl 07/10/2024 11:47 AM T [facility] PROTEIN, URINE Negative Negative mg/dL 07/10/2024 11:47 AM T [facility] GLUCOSE, URINE Negative Negative mg/dL 07/10/2024 11:47 AM T [facility] KETONES,URINE Negative Negative mg/dL 07/10/2024 11:47 AM T [facility] BILIRUBIN,URI NE Negative Negative 07/10/2024 11:47 AM [facility] OCCULT BLOOD,URINE Small(A) Negative 07/10/2024 11:47 AM T [facility] NITRITE Negative Negative 07/10/2024 11:47 AM [facility] LEUKOCYTE ESTERASE Negative Negative 07/10/2024 11:47 AM T [facility] Urine URINE SPECIMEN / Unknown Non-Blood / Unknown 07/10/2024 11:37 AM CDT 07/10/2024 11:41 AM CDT Judit BRITT URINE Final R esult [facility] [address] [place] [address] * URINE (07/10/2024 11:37 AM CDT) ,URIN E Negative Negative 07/10/2024 11:46 AM T [facility] Urine URINE SPECIMEN / Unknown Non-Blood / Unknown 07/10/2024 11:37 AM CDT 07/10/2024 11:41 AM CDT Judit BRITT URINE Final R esult [facility] [address] [place] [address] * FARM SERVICE ADVISER THIN PREP PAP SCREEN IMAGED (06/30/2023 9:24 AM CDT) Case Report Gynecologic Cytology Report Case: [id number] Authorizing Provider: Shanon Gan NP Collected: 06/30/2023 0924 Ordering Location: [facility] Received: 07/03/2023 1017 First Screen: Patric Hoanglas Rescreen: Danni Thakur Specimen: FARM SERVICE ADVISER ThinPrep Vial Screening, Cervical 07/14/2023 10:08 AM CDT [facility] INTERPRETATION/ RESULT NEGATIVE FOR INTRAEPITHELIAL LESION OR MALIGNANCY (NIL) (none) 07/14/2023 10:08 AM CDT [facility] at 1008 CDT SPECIMEN ADEQUACY Satisfactory for evaluation Endocervical component present 07/14/2023 10:08 AM CDT [facility] HPV REQUEST HPV and PAP 07/14/2023 10:08 AM CDT [facility] Date of LMP 06/25/2023 07/14/2023 10:08 AM CDT [facility] Last Pap Date 07/26/2022 07/14/2023 10:08 AM CDT [facility] Last Pap Result LSIL 10:08 AM CDT [facility] Abnormal Pap or [place] Bx in last 5 years Yes 07/14/2023 10:08 AM CDT [facility] [place] Bx Done Today No 07/14/2023 10:08 AM CDT [facility] Additional Information 07/14/2023 10:08 AM CDT [facility] Comment: Interpreted at [facility] - [address], [place] [address] Automated Review Successful 07/14/2023 10:08 AM CDT [facility] Comment:Specimen processed s uccessfully by automated factory engineer device, ThinPrep Imaging System, [employer] ANCILLARY TESTING FARM SERVICE ADVISER HPV Ordered, Please see separate report 07/14/2023 10:08 AM CDT [facility] Note The pap test is a [...] and malignant lesions. 07/14/2023 10:08 AM CDT [facility] Other (Cervical) 06/30/2023 9:24 AM CDT 07/03/2023 10:17 AM CDT Shanon Gan NP PATHOLOGY/CYTOLOGY Final Result [facility] [address] [place] [phone], [place] * ANTI HCV (06/07/2017 8:44 AM CDT) HEPATITIS C ANTIBODY Non-React norberto Non-React norberto 06/07/2017 4:03 PM CDT [facility] Comment:Antibodies to HCV no t detected; does not exclude the possibility of exposure to HCV. Blood BLOOD SPECIMEN / Unknown Venipuncture / Unknown 06/07/2017 8:44 AM CDT 06/07/2017 8:45 AM CDT Jasmyn BRITT SEND OUTS Final R esult [facility] [address] [place] [phone], [place] * ANTI HIV 1/2 (06/07/2017 8:44 AM CDT) HIV-1/HIV-2 ANTIBODY Non-Reacti ve Non-Reacti ve 06/07/2017 3:59 PM CDT [facility] Comment:HIV-1 p24 and HIV-1/ HIV-2 Ab not detected. Blood BLOOD SPECIMEN / Unknown Venipuncture / Unknown 06/07/2017 8:44 AM CDT 06/07/2017 8:45 AM CDT us Jasmyn BRITT SEND OUTS Final R esult [facility] [address] [place] [address], [place] from Last 3 Months or Most Recently Relevant to Health Maintenance Insurance [facility] Care Teams Automation Technologist Relationship Specialty Start Date End Date Luis E Harmon MD [address] [place] [address] PCP - General Family Practice 12/06/21 Alysha Rogers [facility] 06/08/11
[2024-08-07 20:25] VITALS: BP 126/67; PULSE 100; RESP 18; TEMP 36.8; O2SAT 99; BMI 24.2
--- NOTE | 2024-08-07 20:58 | ED_ITS ---
HPI - General Adult General Chief complaint: Skin/Abscess/Foreign Body Stated complaint: red bumps on skin Time Seen by Provider: 08/07/24 20:21 History of Present Illness HPI narrative: This 24-year-old female comes in with her son stating that they both have some red spots on their skin in various places. They both indicate that these are pruritic. There is no known exposures to trigger this. There is no report of fever. The patient does have acne but her reported red spots are more involved on her extremities. She also states that she has noted some what looks like small worms in her stool recently. Related Data Previous Rx's ?Medication ?Instructions ?Recorded cholecalciferol (vitamin D3) 50 50 mcg PO QDAY 3 month s #90 caps 01/08/24 mcg (2,000 unit) capsule escitalopram oxalate 20 mg tablet 20 mg PO DAILY #90 t abs 01/11/24 dextroamphetamine-amphetamine 10 10 mg PO QDAY #30 tab s 07/16/24 mg tablet (Adderall) cyclobenzaprine 5 mg tablet 5 mg PO BID PRN muscle spa sm #30 07/25/24 tabs methylphenidate HCl 54 mg 54 mg PO QAM #30 tabs tablet,extended release 24 hr (Concerta) naproxen 500 mg tablet 500 mg PO BID #60 tabs 07/25 lisdexamfetamine 60 mg capsule 60 mg PO QDAY #30 caps 07/31/24 (Vyvanse) albendazole 200 mg tablet 200 mg PO BID #10 tabs 08/07 triamcinolone acetonide 0.1 % 1 applic topical BID #30 grams 08/07/24 topical cream Allergies Allergy/AdvReac Type Severity Reaction Status Date / Time lurasidone (From Latuda) Allergy Mild groggy, Verified 08/07/24 20:27 fatigue Review of Systems Status of ROS: Reports: 10 or more systems reviewed and unremarkable except as noted in History and below Narrative: Constitutional: No fevers, no weight gain or loss. Eyes: No discharge. No vision changes. HENT: No congestion, no sore throat, no ear pain. Cardiovascular: No chest pain, no palpitations. Respiratory: No shortness of breath, no wheezes, no cough. Gastrointestinal: No abdominal pain, no vomiting, no diarrhea. Genitourinary: No dysuria, no hematuria. Musculoskeletal: Normal range of motion. Skin: Scattered red spots on extremities. These are pruritic. She also reports a injury to the crease of her left 3rd toe. Neurological: No dizziness, weakness, sensory change, speech change. Endo/Heme/Allergies: No bruising or bleeding. No polydipsia. Pysch: no suicidality, no anxiety, no insomnia. All other systems reviewed and are negative. [facility] Medical History (Updated 08/07/24 @ 21:04 by Laureano Fitzgerald MD) Recurrent major depressive disorder ?F33.9 - Major depressive disorder, recurrent, unspecified (ICD-10) Generalized anxiety disorder ?F41.1 - Generalized anxiety disorder (ICD-10) Attention deficit hyperactivity disorder (ADHD), predominantly inattentive type ?F90.0 - Attention-deficit hyperactivity disorder, predominantly inattentive type (ICD-10) Acne ?L70.9 - Acne, unspecified (ICD-10) Surgical History (Updated 06/17/24 @ 09:20 by Maddy Guardado) History of hernia repair (05/2015) ?Z98.890 - Other specified postprocedural states (ICD-10) ?Z87.19 - Personal history of other diseases of the digestive system (ICD-10) Spontaneous vaginal delivery ?O80 - Encounter for full-term uncomplicated delivery (ICD-10) History of tonsillectomy and adenoidectomy (05/2001) ?Z90.89 - Acquired absence of other organs (ICD-10) Family History (Updated 06/17/24 @ 09:26 by Maddy Guardado) Father High blood pressure Social History (Updated 03/28/24 @ 12:18 by Arlyn Ochoa ~ [facility], [facility]) Narrative: single, 1 son, [employer] student, works at 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 What is your current living situation?: I presently have a place to live Problems where you live: no known problems In the past 12 months, utilities in danger of being shut off: no In past 12 months, lack of transportation kept you from medical appts, meetings, work, or getting things needed for daily living: no In the past 12 mos, have been you worried that your food would run out before you had money to buy more?: never true In the past 12 mos, the food you bought just didn't last and you didn't have money to buy more?: never true Smoking Status: Never smoker Do you use any of these nicotine containing products: None How often do you have a drink containing alcohol: 2-3 times a week How many standard drinks containing alcohol do you have on a typical day: 1 or 2 AUDIT-C Alcohol total score: 3 Non-prescribed substance use: denies use Caffeine: Yes How often does anyone, including family, friends and others, physically hurt you : never How often does anyone, including family, friends and others, insult or talk down to you: never How often does anyone, including family, friends and others, threaten you with harm: never How often does anyone, including family, friends and others, scream or curse at you: never service: No Exam Narrative: Exam Narrative: Constitutional: Well-developed, well-nourished, no acute distress. HEENT: Normocephalic, atraumatic. Neck: Normal range of motion. Nontender. Supple. Heart: Regular. No murmurs. Normal rate. Intact distal pulses. Lungs: Clear to auscultation. No chest discomfort. No wheezes, rhonchi, or rales. Abdomen: Normal bowel sounds. Nontender. No rebound tenderness. Genitalia: Deferred. Back: No midline tenderness. Normal range of motion. Extremities: Normal range of motion. No injury. Skin: A few scattered erythematous lesions typical of a bug bite. The left 3rd toe has a fissure with no purulent drainage or sign of erythema. Neurologic: No altered sensation. No weakness. Alert and oriented. Psychiatric: No suicidality. No anxiety or depression. No insomnia. Nursing notes and vitals signs are reviewed. Const: Vital Signs, click to edit/add: Vital Signs - 24 hr 08/07/24 20:25 Temperature 98.2 F Pulse Rate [Right Pulse Oximeter] 100 Respiratory Rate 18 Blood Pressure [Ri ght Upper Arm] 126/67 Pulse Oximetry 99 Oxygen Delivery Me thod Room Air Course Vital Signs Vital signs: Initial Vital Signs Temperature 98.2 F 08/07/24 20:25 Temperature Source Temporal Artery Scan 08/07/24 20:25 Pulse Rate 100 08/07/24 20:25 Respiratory Rate 18 08/07/24 20:25 Blood Pressure 126/67 08/07/24 20:25 Blood Pressure Mean 86 08/07/24 20:25 Blood Pressure Position Sitting 08/07/24 20:25 Pulse Oximetry 99 08/07/24 20:25 Oxygen Delivery Method Room Air 08/07/24 20:25 Vital Signs Temperature 98.2 F 08/07/24 20:25 Pulse Rate 100 08/07/24 20:25 Respiratory Rate 18 08/07/24 20:25 Blood Pressure 126/67 08/07/24 20:25 Pulse Oximetry 99 08/07/24 20:25 Oxygen Delivery Method Room Air 08/07/24 20:25 Temperature 98.2 F 08/07/24 20:25 Pulse Rate 100 08/07/24 20:25 Respiratory Rate 18 08/07/24 20:25 Blood Pressure 126/67 08/07/24 20:25 Pulse Oximetry 99 08/07/24 20:25 Oxygen Delivery Method Room Air 08/07/24 20:25 Medical Decision Making MDM Narrative Medical decision making narrative: This patient comes in reporting some red spots that are pruritic on herself and also on her son. There is no known exposures to explain this. These are not showing any sign of infection or other complication. They are pruritic and more typical of some kind of allergen or perhaps a bug bite. I did provide a prescription for triamcinolone cream. She is also reporting suspicion of worms in her feces so she did receive a prescription for albendazole. Discharge Plan Discharge Clinical Impression: Urticaria, Pinworms Patient Disposition: Home, Self-Care Condition: Stable Additional Instructions: Use triamcinolone cream as needed and directed for symptomatic relief of red spots and itchy areas. Use pills prescribed as directed to treat suspicion of warms. Follow up with MD return if worsening. Prescriptions: New albendazole 200 mg tablet 200 mg PO BID Qty: 10 0RF triamcinolone acetonide 0.1 % cream 1 applic topical BID Qty: 30 0RF No Action methylphenidate HCl [Concerta] 54 mg tablet extended release 24hr 54 mg PO QAM Qty: 30 0RF naproxen 500 mg tablet 500 mg PO BID Qty: 60 1RF cyclobenzaprine 5 mg tablet 5 mg PO BID PRN (Reason: muscle spasm) Qty: 30 0RF cholecalciferol (vitamin D3) 50 mcg (2,000 unit) capsule 50 mcg PO QDAY 90 Days Qty: 90 1RF escitalopram oxalate 20 mg tablet 20 mg PO DAILY Qty: 90 1RF dextroamphetamine-amphetamine [Adderall] 10 mg tablet 10 mg PO QDAY Qty: 30 0RF lisdexamfetamine [Vyvanse] 60 mg capsule 60 mg PO QDAY Qty: 30 0RF Follow Up/Referrals: Luis E Harmon MD [Primary Care Provider, Family Practice] [facility]
[2024-08-07 21:32] VITALS: BP 121/64; PULSE 94; RESP 18; TEMP 36.8; O2SAT 99
== END 2024-08-07 21:32 | disposition home or self-care (01) ==
LOC: ED 21:12
PROVIDERS: Emergency Provider Emergency Medicine Emergency Medical Services; PCP Family Medicine
DX: L50.9 Urticaria, unspecified (principal); B80 Enterobiasis
CPT/HCPCS: 99283; 99284

== ENCOUNTER 2024-08-26 11:25 | Outpatient (CLI) | payer BC, SELFPAY ==
[2024-08-26 13:59] LABS: Clue Cells No Clue Cells Seen (None Seen); Trichomonas No Trichomonas Seen (None Seen); Yeast No Yeast Seen (None Seen)
[2024-08-26 15:59] LABS: Chlamydia DNA Amplified* NOT DETECTED (No Detected); GC DNA Amplified* NOT DETECTED (No Detected)
== END 2024-08-26 11:26 | disposition home or self-care (01) ==
PROVIDERS: PCP Family Medicine; Visit Provider Family Medicine
DX: N89.8 Other specified noninflammatory disorders of vagina (principal); R19.7 Diarrhea, unspecified; Z11.3 Encounter for screening for infections with a predominantly sexual mode of transmission
CPT/HCPCS: 87210; 87491; 87591

== ENCOUNTER 2024-09-04 11:00 | Outpatient (CLI) | payer BC, SELFPAY | END 2024-09-04 11:01 | disposition home or self-care (01) | PROVIDERS: PCP Family Medicine; Visit Provider Family Medicine | DX: R19.7 Diarrhea, unspecified (principal) | CPT/HCPCS: 87177; 87209 ==

== ENCOUNTER 2024-10-28 21:44 | Outpatient (CLI) | payer BC, SELFPAY | END 2024-10-28 21:45 | disposition home or self-care (01) | LOC: AMB 11-05 15:44 | PROVIDERS: PCP Family Medicine; Visit Provider Emergency Medicine Emergency Medical Services | DX: R10.9 Unspecified abdominal pain (principal); R39.89 Other symptoms and signs involving the genitourinary system; R42 Dizziness and giddiness | CPT/HCPCS: A0425; A0429 ==

== ENCOUNTER 2024-10-28 22:13 | Emergency (ER) | payer BC, SELFPAY ==
--- OUTSIDE RECORDS SUMMARY | 2024-10-28 22:15 | XMS_ITS | Clinical Summary ---
Author Organization [employer] [facility] Address [address] [place] [address] Care Team Providers Care Rail Specialist Name Role Phone Alysha Rogers Unavailable Unavailable [...] times daily. 14 Tablet 4 10:55 AM MILLINERY WORKER 04/10/19 24 Active gentamicin (GENOPTIC) 0.3 % ophthalmic solution Place 2 Drops into both eyes four times daily until clear x 48 hours 5 mL 4 10:55 AM MILLINERY WORKER 04/10/19 24 Active fluconazole (DIFLUCAN) 150 mg [...] mouth once daily. 90 Capsule 1 5 10:40 AM CDT 01/08/20 24 Active amoxicillin 875 mg tablet Take 1 Tablet (875 mg) by mouth two times daily. 20 Tablet 03/28/19 25 Active cyclobenzaprine 5 mg tablet Take 1 Tablet (5 mg) by mouth 2 times daily if needed for muscle spasm. 30 Tablet 5 12:32 PM CDT 07/26/19 25 Active naproxen (NAPROSYN) 500 mg tablet Take 1 Tablet (500 mg) by mouth two times daily. 60 Tablet 1 5 2:53 PM CDT 07/26/19 25 Active escitalopram oxalate (LEXAPRO) 20 mg tablet Take 1 Tablet (20 mg) by mouth once daily. 90 Tablet 1 5 1:02 PM CDT 08/15/19 25 Active clotrimazole-betam ethasone 1%-0.05% cream Apply topically to affected area(s) two times daily for 14 days. 45 g 5 12:12 PM CDT 08/28/19 25 025 Active minocycline (MINOCIN) 100 mg capsule Take 2 Capsules (200 mg) by mouth once daily. 60 Capsule 5 5 10:40 AM CDT 09/06/19 25 Active mupirocin 2% ointment Apply topically to affected area(s) once daily. 22 g 1 5 10:40 AM CDT 09/06/19 25 Active dextroamphetamine- amphetamine (ADDERALL) 10 mg tablet Take 1 Tablet (10 mg) by mouth once daily. 30 Tablet 5 10:40 AM CDT 10/10/19 25 Active dextroamphetamine- amphetamine (ADDERALL) 10 mg tablet Take 1 Tablet (10 mg) by mouth once daily. 30 Tablet 11/09/19 25 Active dextroamphetamine- amphetamine (ADDERALL) 10 mg tablet Take 1 Tablet (10 mg) by mouth once daily. 30 Tablet 5 10:34 AM CDT 09/10/19 25 Active lisdexamfetamine (VYVANSE) 60 mg capsule Take 1 Capsule (60 mg) by mouth once daily in the morning. 30 Capsule 5 1:02 PM CDT 10/25/19 25 Active lisdexamfetamine (VYVANSE) 60 mg capsule Take 1 Capsule (60 mg) by mouth once daily in the morning. 30 Capsule 11/24/19 25 Active lisdexamfetamine (VYVANSE) 60 mg capsule Take 1 Capsule (60 mg) by mouth once daily in the morning. 30 Capsule 12/24/19 25 Active lisdexamfetamine (VYVANSE) 60 mg capsule Take 1 Capsule (60 mg) by mouth once daily. 30 Capsule 5 12:12 PM CDT 09/24/19 25 025 Discontin ued(Reord er (E-cancel not [...] Encounters Date Type Department Care Team Description 10/27/2024 1:17 AM CDT - 10/27/2024 2:56 AM CDT Emergency [facility] [address] [facility] [place] [address] Bradly Rodriguez MD Rash (Primary Dx) Discharge Disposition: Home Self Care 10/27/2024 Travel 08/07/2024 Nurse Triage [facility] [address] [place] [address] Luis E Harmon MD Skin Problem 08/07/2024 Nurse Triage [facility] [address] [place] [address] Luis E Harmon MD Questions from Last 3 Months Immunizations Immunization Administration [...] or yelled at (see row info)? No 10/27/2024 Interpersonal Safety Abuse 12 - 18 Not on file 10/27/2024 Interpersonal Safety Ambulatory Vulnerability No t on file 10/27/2024 Utilities Answer Date Recorded Do you have trouble paying f or utilities (for example, heat, electricity, water, phone)? 1 07/01/2024 Comments No Sex and Gender Information Value Date Recorded Sex Assigned at Not on file Legal Sex Female 5:48 AM MILLINERY WORKER Gender Identity Not on file Sexual [...] Sign Reading Time Taken Comments Blood Pressure 152/95 10/27/2024 1:20 AM CDT Pulse 116 10/27/2024 1:30 AM CDT Temperature 37.1 C (98.7 F) 10/27/2024 1:20 AM CDT Respiratory Rate 22 10/27/2024 2:29 AM CDT Oxygen Saturation 100% 10/27/2024 1:30 AM CDT Inhaled Oxygen Concentration - - Weight 77.1 kg (170 lb) 10/27/2024 2:11 AM CDT Height 167.6 cm (5' 6) 10/27/2024 2:11 AM CDT Body Mass Index 27.44 10/27/2024 2:11 AM CDT Plan of Treatment Health Maintenance Due Date Last Done Comments BMI (ht and wt on same day) for age 18+ 12/06/2022 12/06/2021, 06/07/2017, 05/23/2017, Additional history exists Depression screening for age 12+ 12/06/2022 12/06/2021, 05/23/2017, 12/29/2016, Additional history exists COVID-19 vaccine series ( season) 2023 04/27/2021, 04/06/2021 Pap test for age 21-65 06/29/2024 4, 06/30/2023, 07/26/2022, Additional history exists Influenza Vaccine (#1) 2024 2, 12/01/2017, 12/24/2014, Additional history exists Tetanus booster 11/18/2027 11/17/2017, 11/06/2009 RSV vaccine for adults or (1 - 1-dose 75+ series) 2073 HPV series for age 9-26 Completed 06/22/19 16, 09/25/2014, 10/01/2012 HIV for age 15-65 Completed 06/07/2017 Hepatitis C screening for age 18-79 Completed 06/07/2017 Hepatitis B series for 19+ Completed 04/07, 02/16/1999, 02/16/1999, Additional history exists Pneumococcal series for age 6-49 Aged Out No longer eligible based on patient's age to complete this topic Procedures Procedure Name Priority Date/Time Associated Diagnosis Comments CANDY CUTTER MACHINE THIN PREP PAP SCREEN IMAGED Routine 06/30/2023 9:24 AM CDT ANTI HIV 1/2 Routine 06/07/2017 8:44 AM CDT Encounter for supervision of normal first in first trimester (HC) ANTI HCV Routine 06/07/2017 8:44 AM CDT Encounter for supervision of normal first in first trimester (HC) from Last 3 Months or Most Recently Relevant to Health Maintenance Results * CANDY CUTTER MACHINE THIN PREP PAP SCREEN IMAGED (06/30/2023 9:24 AM CDT) Case Report Gynecologic Cytology Report Case: [id number] Authorizing Provider: Shanon Gan NP Collected: 06/30/2023 0924 Ordering Location: [facility] Received: 07/03/2023 1017 First Screen: Patrice Hoang Rescreen: Danni Thakur Specimen: CANDY CUTTER MACHINE ThinPrep Vial Screening, Cervical 07/14/2023 10:[address] [facility] INTERPRETATION/ RESULT NEGATIVE FOR INTRAEPITHELIAL LESION OR MALIGNANCY (NIL) (none) 07/14/2023 10:08 AM CDT [facility] [employer] ENTRAL LABORATORY at 1008 CDT SPECIMEN ADEQUACY Satisfactory for evaluation Endocervical component present 07/14/2023 10:08 AM CDT [employer] ENTRAL LABORATORY HPV REQUEST HPV and PAP 07/14/2023 10:08 AM CDT [facility] ENTRAL LAB[facility] Date of LMP 06/25/2023 07/14/2023 10:[address] [facility] Last Pap Date 07/26/2022 07/14/2023 10:08 AM CDT [facility] [employer] [facility]AT[facility]-C ENTRAL LABORATORY Last Pap Result LSIL 10:[address] [facility] ENTRAL LABORATORY Abnormal Pap or [place] Bx in last 5 years Yes 07/14/2023 10:08 AM CDT [facility] [employer] ENTRAL LABORATORY [place] Bx Done Today No 07/14/2023 10:[address] [facility] Additional Information 07/14/2023 10:08 AM CDT [facility] [employer] ENTRAL LABORATORY Comment: Interpreted at [facility] Central Laboratory - [address], [place] [address] Automated Review Successful 07/14/2023 10:08 AM CDT [facility] [employer] [facility] ENTRAL LABORATORY Comment:Specimen processed s uccessfully by automated plate cleaner device, ThinPrep Imaging System, [employer] ANCILLARY TESTING CANDY CUTTER MACHINE HPV Ordered, Please see separate report 07/14/2023 10:08 AM CDT [facility] ENTRAL LABORATORY Note The pap test is [...] and malignant lesions. 07/14/2023 10:08 AM CDT [facility] ENTRVA LABORATORY Other (Cervical) 06/30/2023 9:24 AM CDT 07/03/2023 10:17 AM CDT Shanon Gan NP PATHOLOGY/CYTOLOGY Final Result Performing Organization Address City/[facility]/ZIP Co de Phone Number [facility] [address] [place] [address], [place] * ANTI HCV (06/07/2017 8:44 AM CDT) Pathologist [facility] HEPATITIS C ANTIBODY Non-React norberto Non-React norberto 06/07/2017 4:03 PM CDT [facility] TRAL LABORATORY Comment:Antibodies to HCV no t detected; does not exclude the possibility of exposure to HCV. Blood BLOOD SPECIMEN / Unknown Venipuncture / Unknown 06/07/2017 8:44 AM CDT 06/07/2017 8:45 AM CDT Jasmyn BRITT SEND OUTS Final R esult [facility] [address] [place] [address], [place] * ANTI HIV 1/2 (06/07/2017 8:44 AM CDT) HIV-1/HIV-2 ANTIBODY Non-Reacti ve Non-Reacti ve 06/07/2017 3:59 PM CDT [facility] TRAL LABORATORY Comment:HIV-1 p24 and HIV-1/ HIV-2 Ab not detected. Blood BLOOD SPECIMEN / Unknown Venipuncture / Unknown 06/07/2017 8:44 AM CDT 06/07/2017 8:45 AM CDT Jasmyn BRITT SEND OUTS Final R esult [facility]-CENTRAL LABORATORY [address] [place] [address], from Last 3 Months or Most Recently Relevant to Health Maintenance Insurance [employer] [facility] Care Teams Rail Specialist Relationship Specialty Start Date End Date Luis E Harmon MD [address] [place] [phone] PCP - General Family Practice 12/06/21 Alysha Rogers [facility] 06/08/11
--- OUTSIDE RECORDS SUMMARY | 2024-10-28 22:15 | XMS_ITS | Clinical Summary ---
Author Organization [place] Address [address] [place] [address] Care Team Providers Care Temple Marker Name Role Phone [facility]- Primary Care Provider Allergies No known active allergies Medications escitalopram (LEXAPRO) 20 MG tablet Take 1 tablet by mouth daily. 01/11/2024 Active lisdexamfetamine (VYVANSE) 60 MG capsule Take 60 mg by mouth. 01/03/2024 Active Cholecalciferol (VITAMIN D3) 50 MCG (2000 UT) CAPS Take 2,000 Units by mouth. 01/08/2024 Active Immunizations Immunization Administration Dates Next Due DTAP (<7y) 10/22/2003, 3,1998,06/19,1998 [id number] Novel Flu 01/28/2009 HIB, Unspecified 09/18/2002, 9,1998,04/06 [...] on file Legal Sex Female 4:02 AM [employer] Gender Identity Not on file Sexual Orientation Not on file Last Filed Vital Signs Vital Sign Reading Time Taken Comments Blood Pressure 128/84 02/18/2024 2:24 PM [employer] TE[employer] Pulse 93 02/18/2024 2:24 PM [employer] TE[employer]ER Temperature 36.6 C (97.8 F) 02/18/2024 2:24 PM [employer] TE[employer]ER Respiratory Rate 16 02/18/2024 2:24 PM [employer]ER Oxygen Saturation 100% 02/18/2024 2:24 PM [employer] SCI[employer] TE[employer]ER Inhaled Oxygen Concentration - - Weight 73.5 kg (162 lb) 02/18/2024 2:24 PM [employer] SCI[employer] TE[employer]ER Height 167.6 cm (5' 6) 06/25/2023 8:25 AM CDT Body Mass Index 26.15 06/25/2023 8:25 AM CDT Plan of Treatment Health Maintenance Due Date Last Done Comments ADVANCE CARE PLANNING 1998 ANNUAL REVIEW OF HM ORDERS 1998 YEARLY PREVENTIVE VISIT 2001 COVID-19 VACCINE ( season) 2023 04/27/2021, 04/06/2021 PHQ-2 (once per calendar year) 2024 INFLUENZA VACCINE (#1) 2024 , 12/01/2017, 12/24/2014, Additional history exists PAP [...] [place] Care Teams Temple Marker Relationship Specialty Start Date End Date [facility]- [address] [place] [address] [facility] - General 06/25/23
[2024-10-28 22:37] VITALS: BP 135/82; PULSE 130; RESP 24; TEMP 37; O2SAT 100; BMI 27.4
--- NOTE | 2024-10-28 23:13 | ED_ITS ---
HPI - General Adult General Chief complaint: Dizziness/Vertigo Stated complaint: dizziness Time Seen by Provider: 10/28/24 22:36 History of Present Illness HPI narrative: Patient arrives via [facility] with c/o dizziness, lightheadedness . Patient states she was trying to clean mold in her father's house where she and her son are living and after mixing sodium chloride , ammonia, bleach, and anti-mold spray and adding hot water, the mixture began to smoke. The patient and her son drove to [employer] and called 911. The patient's son is also being evaluated today . Patient is very tearful and anxious in room and states she had been having a lot of problems with sores on her feet, constipation, intermittent abdominal pain and boils on her vaginal area for weeks. Patient has seen her PCP and dermatology for some of these issues. 24-year-old woman presenting via EMS along with her 6-year-old son. Event prompting visit here [place] is an attempt to rid bathroom in lower level of her father's home with concoction of home cleaning chemicals. It began to smoke in some way which she says she actually was not concerned about. Apparently left with herself and son to the [employer] and called 911. Brought to the ER by EMS. Fire fighters evaluated this scene and cleaned up. Notes some dizziness or lightheadedness. No difficulty breathing. This home is apparently [place] and Tricia feels that has been struggling with mold here for some time. Does not feel her father is particularly receptive to her concerns. 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 She and her son have been staying in the basement area I believe since the of her a few years back. It sounds like also had an jockey agent to visit. 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 She does not have the picture she thought she took although does show me 1 that shows woven black cloth with woken white material within it. Appears frustrated that isn't able to show pictures of the larva. She herself has been struggling with a number of health concerns in particular what looks to be hidradenitis suppurativa on my review of records. Has seen primary and Dermatology. These are flaring frequently it appears. Discharging foul material she says. Currently on treatment with minocycline and uses clobetasol for inflammatory changes in the groin/perineal area. She does have some lung disease possibly asthma. Does not appear to have flared particularly tonight but does admit that it appears to be affected by her home environment. Might be improved from taking loratadine more regularly. She is particularly concerned about effect of this environment on her son and that he, including tonight has been behaving intermittently in a more aggressive manner which is very atypical for him. I understand that she feels that exposure in the home is precipitating some of this. Intermittent abdominal pains for some time of unclear etiology. No fevers noted. She is concerned about where she will go tonight. Does have boyfriend Indio? in [facility] with whom she might be able to stay. It sounds as though gave and her father are not in agreement with the significance of some of the concerns she has been raising. She apologizes regularly for unloading the way she is during this extensive interview. Does take medication for anxiety and ADHD. Related Data Home Medications ?Medication ?Instructions ?Recorded ?Confirmed copper 380 square mm intrauterine 1 device intrauterin e ONCE 08/26/24 09/05/24 device (ParaGard T380A (Single Hand)) naproxen 500 mg tablet 500 mg PO BID PRN 09/05/24 Previous Rx's ?Medication ?Instructions ?Recorded cholecalciferol (vitamin D3) 50 50 mcg PO QDAY 3 month s #90 caps 01/08/24 mcg (2,000 unit) capsule cyclobenzaprine 5 mg tablet 5 mg PO BID PRN muscle spa sm #30 07/25/24 tabs escitalopram oxalate 20 mg tablet 20 mg PO DAILY #90 t abs 08/14/24 minocycline 100 mg tablet 200 mg (2 x 100 mg) PO QDAY #60 09/05/24 tabs mupirocin 2 % topical ointment 1 applic topical QDAY # 22 grams 09/05/24 dextroamphetamine-amphetamine 10 10 mg PO QDAY #30 tab s 09/09/24 mg tablet (Adderall) dextroamphetamine-amphetamine 10 10 mg PO QDAY #30 tab s 09/09/24 mg tablet (Adderall) dextroamphetamine-amphetamine 10 10 mg PO QDAY #30 tab s 09/09/24 mg tablet (Adderall) lisdexamfetamine 60 mg capsule 60 mg PO QAM #30 caps 0 10/24/24 (Vyvanse) lisdexamfetamine 60 mg capsule 60 mg PO QAM #30 caps 0 10/24/24 (Vyvanse) lisdexamfetamine 60 mg capsule 60 mg PO QDAY #30 caps 10/24/24 (Vyvanse) Allergies Allergy/AdvReac Type Severity Reaction Status Date / Time lurasidone (From Latuda) Allergy Mild groggy, Verified 09/05/24 10:20 fatigue Review of Systems Status of ROS: Reports: 6 or more systems reviewed and unremarkable except as noted in History and below [facility] Medical History COVID-19 ?U07.1 - COVID-19 (ICD-10) Recurrent major depressive disorder ?F33.9 - Major depressive disorder, recurrent, unspecified (ICD-10) Generalized anxiety disorder ?F41.1 - Generalized anxiety disorder (ICD-10) Attention deficit hyperactivity disorder (ADHD), predominantly inattentive type ?F90.0 - Attention-deficit hyperactivity disorder, predominantly inattentive type (ICD-10) Acne ?L70.9 - Acne, unspecified (ICD-10) Surgical History History of hernia repair (05/2015) ?Z98.890 - Other specified postprocedural states (ICD-10) ?Z87.19 - Personal history of other diseases of the digestive system (ICD-10) Spontaneous vaginal delivery ?O80 - Encounter for full-term uncomplicated delivery (ICD-10) History of tonsillectomy and adenoidectomy (05/2001) ?Z90.89 - Acquired absence of other organs (ICD-10) Family History Father High blood pressure Social History Narrative: single, 1 son, [employer]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, 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[employer] 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 What is your current living situation?: I presently have a place to live Problems where you live: no known problems In the past 12 months, utilities in danger of being shut off: no In past 12 months, lack of transportation kept you from medical appts, meetings, work, or getting things needed for daily living: no In the past 12 mos, have been you worried that your food would run out before you had money to buy more?: never true In the past 12 mos, the food you bought just didn't last and you didn't have money to buy more?: never true Smoking Status: Never smoker Do you use any of these nicotine containing products: None Second hand tobacco smoke exposure: No How often do you have a drink containing alcohol: 2-3 times a week How many standard drinks containing alcohol do you have on a typical day: 1 or 2 AUDIT-C Alcohol total score: 3 Non-prescribed substance use: denies use Caffeine: Yes How often does anyone, including family, friends and others, physically hurt you : never How often does anyone, including family, friends and others, insult or talk down to you: never How often does anyone, including family, friends and others, threaten you with harm: never How often does anyone, including family, friends and others, scream or curse at you: never service: No Exam Narrative: Exam Narrative: Pleasant. Appears anxious. Dry mouth repeatedly relieved with some drinking of water. Animated. Quite verbose. Tangential. Heart initially is tachycardic. She is breathing easily. I do not hear any wheeze or stridor during our conversation. Const: Vital Signs, click to edit/add: Vital Signs - 24 hr 10/28/24 22:37 Temperature 98.6 F Pulse Rate [Left P ulse Oximeter] 130 H Respiratory Rate 24 Blood Pressure [Ri ght Upper Arm] 135/82 Pulse Oximetry 100 Oxygen Delivery Me thod Room Air Documenting provider has reviewed patient's vital signs: yes Course Vital Signs Vital signs: Initial Vital Signs Temperature 98.6 F 10/28/24 22:37 Temperature Source Temporal Artery Scan 10/28/24 22:37 Pulse Rate 130 H 10/28/24 22:37 Respiratory Rate 24 10/28/24 22:37 Blood Pressure 135/82 10/28/24 22:37 Blood Pressure Mean 99 10/28/24 22:37 Blood Pressure Position Sitting 10/28/24 22:37 Pulse Oximetry 100 10/28/24 22:37 Oxygen Delivery Method Room Air 10/28/24 22:37 Vital Signs Temperature 98.6 F 10/28/24 22:37 Pulse Rate 130 H 10/28/24 22:37 Respiratory Rate 24 10/28/24 22:37 Blood Pressure 135/82 10/28/24 22:37 Pulse Oximetry 100 10/28/24 22:37 Oxygen Delivery Method Room Air 10/28/24 22:37 Temperature 98.6 F 10/28/24 22:37 Pulse Rate 130 H 10/28/24 22:37 Respiratory Rate 24 10/28/24 22:37 Blood Pressure 135/82 10/28/24 22:37 Pulse Oximetry 100 10/28/24 22:37 Oxygen Delivery Method Room Air 10/28/24 22:37 Medical Decision Making MDM Narrative Medical decision making narrative: Clearly is emotionally stressed. She admits that has panicked somewhat tonight. Home environment is described as concerning though I am concerned that there is some delusional thinking here. Understandable fear for her son in particular. Does not appear to require any medical intervention here tonight. I think is safe in this regard. Certainly is experiencing a number of stressors. I believe would benefit from further emotional/psychiatric support of some sort. Attempted to offer some reassurance in the immediate. See patient discharge plan for further discussion Please do not feel bad about coming into the emergency department. Given what you were telling me, I do think it would be good idea to an jockey agent out to your home again. In the meantime also take daily loratadine. I am also concerned about the level of stress you are holding at this time. If you are not already seeing somebody to talk about this further, I would a message your primary care provider to receive a referral. If things ever seem absolutely too much, please return to the emergency department. Medical Records Medical records reviewed: Yes I reviewed the patient's medical records Discharge Plan Discharge Clinical Impression: Other social stressor, Chemical exposure Patient Disposition: Home, Self-Care Condition: Improved Additional Instructions: Please do not feel bad about coming into the emergency department. Given what you were telling me, I do think it would be good idea to an jockey agent out to your home again. In the meantime also take daily loratadine. I am also concerned about the level of stress you are holding at this time. If you are not already seeing somebody to talk about this further, I would a message your primary care provider to receive a referral. If things ever seem absolutely too much, please return to the emergency department. Prescriptions: No Action ParaGard T380A (Single Hand) 380 square mm intrauterine device 1 device intrauterine ONCE Rx Instructions: as a single dose naproxen 500 mg tablet 500 mg PO BID PRN mupirocin 2 % ointment 1 applic topical QDAY Qty: 22 1RF minocycline 100 mg tablet 200 mg PO QDAY Qty: 60 5RF cyclobenzaprine 5 mg tablet 5 mg PO BID PRN (Reason: muscle spasm) Qty: 30 0RF cholecalciferol (vitamin D3) 50 mcg (2,000 unit) capsule 50 mcg PO QDAY 90 Days Qty: 90 1RF escitalopram oxalate 20 mg tablet 20 mg PO DAILY Qty: 90 1RF dextroamphetamine-amphetamine [Adderall] 10 mg tablet 10 mg PO QDAY Qty: 30 0RF dextroamphetamine-amphetamine [Adderall] 10 mg tablet 10 mg PO QDAY Qty: 30 0RF dextroamphetamine-amphetamine [Adderall] 10 mg tablet 10 mg PO QDAY Qty: 30 0RF lisdexamfetamine [Vyvanse] 60 mg capsule 60 mg PO QAM Qty: 30 0RF lisdexamfetamine [Vyvanse] 60 mg capsule 60 mg PO QDAY Qty: 30 0RF lisdexamfetamine [Vyvanse] 60 mg capsule 60 mg PO QAM Qty: 30 0RF Follow Up/Referrals: Luis E Harmon MD [Primary Care Provider, Family Practice] Stand Alone Forms: [facility], Inceal Info Instructions
--- OUTSIDE RECORDS SUMMARY | 2024-10-29 00:05 | XMS_ITS | Clinical Summary ---
Author Organization [facility] Address [address] [place] [id number] Care Team Providers Care Shoer Name Role Phone [facility]- Primary Care Provider Allergies No known active allergies Medications escitalopram (LEXAPRO) 20 MG tablet Take 1 tablet by mouth daily. 01/11/2024 Active lisdexamfetamine (VYVANSE) 60 MG capsule Take 60 mg by mouth. 01/03/2024 Active Cholecalciferol (VITAMIN D3) 50 MCG (2000 UT) CAPS Take 2,000 Units by mouth. 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 Gender Identity Not on file Sexual Orientation Not on file Last Filed Vital Signs Vital Sign Reading Time Taken Comments Blood Pressure 128/84 02/18/2024 2:24 PM DOUBLE ENDING MACHINE OPERATOR Pulse 93 02/18/2024 2:24 PM DOUBLE ENDING MACHINE OPERATOR Temperature 36.6 C (97.8 F) 02/18/2024 2:24 PM DOUBLE ENDING MACHINE OPERATOR Respiratory Rate 16 02/18/2024 2:24 PM DOUBLE ENDING MACHINE OPERATOR Oxygen Saturation 100% 02/18/2024 2:24 PM DOUBLE ENDING MACHINE OPERATOR Inhaled Oxygen Concentration - - Weight 73.5 kg (162 lb) 02/18/2024 2:24 PM DOUBLE ENDING MACHINE OPERATOR Height 167.6 cm (5' 6) 06/25/2023 8:25 [...] [place] Care Teams Shoer Relationship Specialty Start Date End Date [facility]- [address] [place] [address] [facility] - General 06/25/23
--- OUTSIDE RECORDS SUMMARY | 2024-10-29 00:05 | XMS_ITS | Clinical Summary ---
Author Organization [facility] Address [address] [place] [id number] Care Team Providers Care Telemarketer Name Role Phone Alysha Rogers Unavailable Unavailable [...] times daily. 14 Tablet 4 10:55 AM PULP DRIER 04/10/19 24 Active gentamicin (GENOPTIC) 0.3 % ophthalmic solution Place 2 Drops into both eyes four times daily until clear x 48 hours 5 mL 4 10:55 AM PULP DRIER 04/10/19 24 Active fluconazole (DIFLUCAN) 150 mg [...] 5 1:02 PM CDT 08/15/19 25 Active minocycline (MINOCIN) 100 mg capsule Take [...] the morning. 30 Capsule 12/24/19 25 Active clotrimazole-betam ethasone 1%-0.05% cream Apply topically to affected area(s) two times daily for 14 days. 45 g 5 12:12 PM CDT 08/28/19 25 025 lisdexamfetamine (VYVANSE) 60 mg capsule Take 1 Capsule (60 mg) by mouth once daily. 30 Capsule 5 12:12 PM CDT 09/24/19 25 025 Discontinu ed(Reorder (E-cancel not sent)) Active Problems Problem Noted [...] CDT - 10/27/2024 2:56 AM CDT Emergency [facility] [address] [facility] [place] [address] Bradly Rodriguez MD Rash (Primary Dx) Discharge Disposition: Home Self Care 10/27/2024 Travel 08/07/2024 Nurse Triage [facility] [address] [place] [address] Luis E Harmon MD Skin Problem 08/07/2024 Nurse Triage [facility] [address] [place] [address] Luis E Harmon MD Questions from Last [...] on file Legal Sex Female 5:48 AM 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 Gender Identity Not on file Sexual Orientation [...] 12/06/2022 12/06/2021, 05/23/2017, 12/29/2016, Additional history exists Pap test for age 21-65 06/29/2024 , 06/30/2023, 07/26/2022, Additional history exists COVID-19 vaccine series ( season) 2024 04/27/2021, 04/06/2021 Influenza Vaccine (#1) 2024 2, 12/01/2017, 12/24/2014, [...] Procedure Name Priority Date/Time Associated Diagnosis Comments 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 THIN PREP PAP SCREEN IMAGED Routine 06/30/2023 9:24 AM CDT ANTI HIV 1/2 Routine 06/07/2017 8:44 AM CDT Encounter for supervision of normal first in first trimester (HC) ANTI HCV Routine 06/07/2017 8:44 AM CDT Encounter for supervision of normal first in first trimester (HC) from Last 3 Months or Most Recently Relevant to Health Maintenance Results * 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 [employer]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 THIN PREP PAP SCREEN IMAGED (06/30/2023 9:24 AM CDT) Case Report Gynecologic Cytology Report Case: [id number] Authorizing Provider: Shanon Gan NP Collected: 06/30/2023 0924 Ordering Location: [facility] Received: 07/03/2023 1017 First Screen: Patrice Hoang Rescreen: Danni Thakur Specimen: 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 SORTER ThinPrep Vial Screening, Cervical 07/14/2023 10:08 AM CDT [facility] INTERPRETATION/ RESULT NEGATIVE FOR INTRAEPITHELIAL LESION OR MALIGNANCY (NIL) (none) 07/14/2023 10:08 AM CDT [facility] [employer] ENTRAL LABORATORY at 1008 CDT SPECIMEN ADEQUACY Satisfactory for evaluation Endocervical component present 07/14/2023 10:08 AM CDT [employer] ENTRAL LABORATORY HPV REQUEST HPV and PAP 07/14/2023 10:08 AM CDT [facility] ENTRAL LABORATORY Date of LMP 06/25/2023 07/14/2023 10:08 AM CDT [facility] Last Pap Date 07/26/2022 07/14/2023 10:08 AM CDT [facility] [employer] LABORATORY-C ENTRAL LABORATORY Last Pap Result LSIL 10:08 AM CDT [facility] ENTRAL LABORATORY Abnormal Pap or [place] Bx in last 5 years Yes 07/14/2023 10:08 AM CDT [facility] [employer] ENTRAL LABORATORY [place] Bx Done Today No 07/14/2023 10:08 AM CDT [facility] Additional Information 07/14/2023 10:08 AM CDT [facility] [employer] ENTRAL LABORATORY Comment: Interpreted at [facility] - [address], [place] [address] Automated Review Successful 07/14/2023 10:08 AM CDT [facility] [employer] [facility] ENTRAL LABORATORY Comment:Specimen processed s uccessfully by automated service agent device, Thin[employer] Imaging System, [employer] ANCILLARY TESTING 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 [employer] SORTER HPV Ordered, Please see separate report 07/14/2023 10:08 AM CDT [facility] ENTRAL LABORATORY Note The pap test is [...] and malignant lesions. 07/14/2023 10:08 AM CDT [facility]KY LAB[facility] Other (Cervical) 06/30/2023 9:24 AM CDT 07/03/2023 10:17 AM CDT Shanon Gan NP PATHOLOGY/CYTOLOGY Final Result Performing Organization Address City/[facility]/ZIP Co de Phone Number [facility] [address] [place] [address], [place] * ANTI HCV (06/07/2017 8:44 AM CDT) Pathologist [facility] HEPATITIS C ANTIBODY Non-React norberto Non-React norberto 06/07/2017 4:03 PM CDT [facility] TRAL LABORATORY Comment:Antibodies to HCV no t detected; does not exclude the possibility of exposure to HCV. Blood BLOOD SPECIMEN / Unknown Venipuncture / Unknown 06/07/2017 8:44 AM CDT 06/07/2017 8:45 AM CDT Jasmyn BRITT SEND OUTS Final R esult [facility] [address] [place] [address], [place] * ANTI HIV 1/2 (06/07/2017 8:44 AM CDT) HIV-1/HIV-2 ANTIBODY Non-Reacti ve Non-Reacti ve 06/07/2017 3:59 PM CDT [facility] TRAL LABORATORY Comment:HIV-1 p24 and HIV-1/ HIV-2 Ab not detected. Blood BLOOD SPECIMEN / Unknown Venipuncture / Unknown 06/07/2017 8:44 AM CDT 06/07/2017 8:45 AM CDT [employer] BR[facility] SEND OUTS Final R esult [facility]-CENTRAL LABORATORY [address] [place] [address], from Last 3 Months or Most Recently Relevant to Health Maintenance Insurance [employer] [facility] Care Teams Telemarketer Relationship Specialty Start Date End Date Luis E Harmon MD [address] [place] [id number] PCP - General Family Practice 12/06/21 Alysha Rogers Family Practice 06/08/11
== END 2024-10-29 00:39 | disposition home or self-care (01) ==
PROVIDERS: Emergency Provider Family Medicine; PCP Family Medicine
DX: F43.9 Reaction to severe stress, unspecified (principal); Z77.098 Contact with and (suspected) exposure to other hazardous, chiefly nonmedicinal, chemicals
CPT/HCPCS: 99281; 99283; 99284

== ENCOUNTER 2024-11-13 11:24 | Outpatient (CLI) | payer BC, SELFPAY ==
[2024-11-13 13:12] LABS: Trichomonas No Trichomonas Seen (None Seen)
[2024-11-13 14:35] LABS: Chlamydia DNA Amplified* NOT DETECTED (No Detected); GC DNA Amplified* NOT DETECTED (No Detected)
== END 2024-11-13 11:25 | disposition home or self-care (01) ==
PROVIDERS: PCP Family Medicine; Visit Provider Family Medicine
DX: N89.8 Other specified noninflammatory disorders of vagina (principal)
CPT/HCPCS: 87210; 87491; 87591